=== PATIENT | female | born 1945 | race Caucasian/White ===

== ENCOUNTER 2017-07-23 04:34 | Inpatient (IN) | payer MEDICARE ==
[2017-07-23] VITALS (12 sets, daily range): BP systolic 138–173; BP diastolic 72–100
[~2017-07-23 04:34] MED LIST changes: -CEPH500C24 PO; -NIFE30TA92 PO
--- NOTE | 2017-07-23 05:01 | ER Report ---
History and Physical Time Seen By MD: 04:53 Hx. of Stated Complaint: pt reports pain last few weeks in R hip and groin, nausea (ROBERT PILLAI MD) HPI/ROS 72-year-old female with a history of multiple UTIs in the past. She called the paramedics early this morning complaining of right hip pain for 2 months which has worsened for the past 2 weeks. However upon arrival when asked why she presented to the hospital with pain after 2 months in the middle the night she started to say that she had abdominal pain that started at 5 PM yesterday. The paramedics state that she never said anything about abdominal pain. She denies dysuria, urgency or frequency. No fever chills. She denies any falls or other trauma. Chest pain and no shortness of breath. She states that her hip pain is better but she has right sided abdominal pain and right flank pain. Paramedics said when they arrived at the home she was able to walk briskly with a walker to get to the ambulance. She does complain of nausea. Remainder of the 14 system rev: Yes (ROBERT PILLAI MD) Allergies: Coded Allergies: No Known Drug Allergies (Verified , 02/01/11) Home Meds Reported Medications Metoprolol Tartrate (Metoprolol Tartrate) 100 Mg Tablet, 100 MG PO BID, #60 0 Refills 06/26/10 Oregano Oil (Oil Of Oregano) 1,500 Mg Capsule, 1500 MG PO, 0 Refills 06/26/10 Saline ([place] Nasal [place]) 45 Ml [place], 0 NA PRN, 0 Refills SPRAY 06/26/10 Discontinued Reported Medications Levofloxacin (Levaquin) 500 Mg Tab, 500 MG PO QDAY for 4 Days, 0 Refills 02/04/11 Acetaminophen/Hydrocodone (Lortab 5/325 Mg) 5 Mg/325 Mg Tab, 1-2 TAB PO Q4H, # 30 0 Refills as needed for pain 02/04/11 Ketorolac Tromethamine (Toradol) 10 Mg Tab, 10 MG PO QID, #12 0 Refills 02/04/11 Lisinopril (Lisinopril) 40 Mg Tablet, 40 MG PO DAILY, 0 Refills 02/01/11 Cetirizine Hcl (Zyrtec) 10 Mg Tab, 10 MG PO QDAY, 0 Refills 06/26/10 Discontinued Scripts Lorazepam (ATIVAN) 0.5 Mg Tablet, 0.5 MG PO Q4-6H Y for ANXIETY, #15 TAB 0 Refills Prov:LOIS VILLANUEVA MD 10/23/15 Amoxicillin/Pot Clav 875-125 Mg Tab (AUGMENTIN 875-125 TABLET) 1 Each Tablet, 1 TAB PO Q12H, #20 TAB 0 Refills Prov:LOIS VILLANUEVA MD 10/23/15 Reviewed Nurses Notes: Yes Old Medical Records Reviewed: Yes (ROBERT PILLAI MD) Hx Smoking: No Hx Substance Use Disorder: No Hx Alcohol Use: No (ROBERT PILLAI MD) Constitutional Vital Sign - Last 24 Hours 07/23/17 07/23/17 07/23/17 07/23/17 04:34 04:35 04:39 04:49 Temp 98.3 Pulse ??? 87 83 Resp 18 B/P (MAP) 211/142 211/142 (165) Pulse Ox 93 92 O2 Delivery Room Air 07/23/17 07/23/17 07/23/17 07/23/17 04:52 05:00 05:04 05:19 Pulse 83 86 B/P (MAP) 200/120 (146) 209/123 (151) Pulse Ox 92 92 07/23/17 07/23/17 07/23/17 07/23/17 05:30 05:49 05:57 06:01 Temp 100.5 Pulse 87 B/P (MAP) 223/142 (169) 219/112 (147) Pulse Ox 92 07/23/17 07/23/17 07/23/17 07/23/17 06:17 06:30 06:32 07:17 Pulse 90 89 90 Resp 26 B/P (MAP) 213/125 (154) Pulse Ox 90 87 91 07/23/17 07/23/17 07/23/17 07/23/17 07:22 07:30 07:32 07:37 Temp 99.0 Pulse 93 95 Resp 15 61 B/P (MAP) 206/105 (138) Pulse Ox 90 90 07/23/17 07:52 Pulse 94 Resp 10 Pulse Ox 90 (REIK GANN MD) Physical Exam General Appearance: The patient is alert, has no immediate need for airway protection and no current signs of toxicity. Eyes: Pupils equal and round no injection. Respiratory: Chest is non tender, lungs are clear to auscultation. Cardiac: regular rate and rhythm Gastrointestinal: Abdomen is soft and non tender, no masses, bowel sounds normal. Musculoskeletal: Neck: Neck is supple and non tender. Extremities have full range of motion and are non tender. Skin: No rashes or lesions. DIFFERENTIAL DIAGNOSIS: After history and physical exam differential diagnosis was considered for (ROBERT PILLAI MD) Medical Decision Making Data Points Result Diagram: 07/23/17 0501 07/23/17 0501 Laboratory Hematology Test 07/23/17 05:01 07/23/17 05:17 07/23/17 06:28 Red Blood Count 5.07 M/uL (4.17-5.56) Mean Corpuscular Volume 88.7 fL (80.0-96.0) Mean Corpuscular Hemoglobin 30.3 pg (26.0-33.0) Mean Corpuscular Hemoglobin Concent 34.1 g/dL (32.0-36.0) Red Cell Distribution Width 15.4 % (11.5-14.5) Mean Platelet Volume 8.7 fL (7.2-11.1) Neutrophils (%) (Auto) 93.3 % (39.4-72.5) Lymphocytes (%) (Auto) 5.0 % (17.6-49.6) Monocytes (%) (Auto) 1.2 % (4.1-12.4) Eosinophils (%) (Auto) 0.0 % (0.4-6.7) Basophils (%) (Auto) 0.5 % (0.3-1.4) Nucleated RBC Relative Count (auto) 0.2 /100WBC Neutrophils # (Auto) 9.6 K/uL (2.0-7.4) Lymphocytes # (Auto) 0.5 K/uL (1.3-3.6) Monocytes # (Auto) 0.1 K/uL (0.3-1.0) Eosinophils # (Auto) 0.0 K/uL (0.0-0.5) Basophils # (Auto) 0.0 K/uL (0.0-0.1) Nucleated RBC Absolute Count (auto) 0.02 K/uL Sodium Level 135 mmol/L (137-145) Potassium Level 4.3 mmol/L (3.5-5.0) Chloride Level 102 mmol/L (98-107) Carbon Dioxide Level 21 mmol/L (22-31) Blood Urea Nitrogen 18 mg/dl (7-18) Creatinine 1.60 mg/dl (0.52-1.04) Glomerular Filtration Rate Calc 31.8 Random Glucose 163 mg/dl (75-110) Calcium Level 9.7 mg/dl (8.4-10.2) Total Bilirubin 0.9 mg/dl (0.2-1.3) Aspartate Amino Transf (AST/SGOT) 29 U/L (0-35) Alanine Aminotransferase (ALT/SGPT) 38 U/L (0-56) Alkaline Phosphatase 121 U/L (0-126) Total Protein 7.6 g/dl (6.3-8.2) Albumin 3.7 g/dl (3.5-5.0) Lipase 71 U/L (23-300) Urine Color Yellow Urine Clarity Slightly-cloudy Urine pH 7.0 pH (4.8-9.5) Urine Specific [place] 1.009 Urine Protein 30 mg/dL (NEGATIVE) Urine Glucose (UA) Negative mg/dL (NEGATIVE) Urine Ketones Negative mg/dL (NEGATIVE) Urine Blood Small (NEGATIVE) Urine Nitrite Negative (NEGATIVE) Urine Bilirubin Negative (NEGATIVE) Urine Urobilinogen Negative mg/dL (0.2-1.9) Urine Leukocyte Esterase Large (NEGATIVE) Urine RBC 16 /HPF (0-2/HPF) Urine WBC 53 /HPF (0-5/HPF) Urine WBC Clumps Few /HPF Urine Squamous Epithelial Cells Moderate /LPF (NONE-FEW) Urine Transitional Epithelial Cells Few /LPF (NONE-FEW) Urine Bacteria Few /HPF (NONE-FEW) Urine Mucus None /HPF (NONE-FEW) Lactate 2.3 mmol/L (0.7-2.1) Chemistry Test 07/23/17 05:01 07/23/17 05:17 07/23/17 06:28 White Blood Count 10.2 k/uL (4.5-11.0) Red Blood Count 5.07 M/uL (4.17-5.56) Hemoglobin 15.3 g/dL (12.0-16.0) Hematocrit 45.0 % (34.0-47.0) Mean Corpuscular Volume 88.7 fL (80.0-96.0) Mean Corpuscular Hemoglobin 30.3 pg (26.0-33.0) Mean Corpuscular Hemoglobin Concent 34.1 g/dL (32.0-36.0) Red Cell Distribution Width 15.4 % (11.5-14.5) Platelet Count 201 K/uL (150-450) Mean Platelet Volume 8.7 fL (7.2-11.1) Neutrophils (%) (Auto) 93.3 % (39.4-72.5) Lymphocytes (%) (Auto) 5.0 % (17.6-49.6) Monocytes (%) (Auto) 1.2 % (4.1-12.4) Eosinophils (%) (Auto) 0.0 % (0.4-6.7) Basophils (%) (Auto) 0.5 % (0.3-1.4) Nucleated RBC Relative Count (auto) 0.2 /100WBC Neutrophils # (Auto) 9.6 K/uL (2.0-7.4) Lymphocytes # (Auto) 0.5 K/uL (1.3-3.6) Monocytes # (Auto) 0.1 K/uL (0.3-1.0) Eosinophils # (Auto) 0.0 K/uL (0.0-0.5) Basophils # (Auto) 0.0 K/uL (0.0-0.1) Nucleated RBC Absolute Count (auto) 0.02 K/uL Glomerular Filtration Rate Calc 31.8 Calcium Level 9.7 mg/dl (8.4-10.2) Total Bilirubin 0.9 mg/dl (0.2-1.3) Aspartate Amino Transf (AST/SGOT) 29 U/L (0-35) Alanine Aminotransferase (ALT/SGPT) 38 U/L (0-56) Alkaline Phosphatase 121 U/L (0-126) Total Protein 7.6 g/dl (6.3-8.2) Albumin 3.7 g/dl (3.5-5.0) Lipase 71 U/L (23-300) Urine Color Yellow Urine Clarity Slightly-cloudy Urine pH 7.0 pH (4.8-9.5) Urine Specific [place] 1.009 Urine Protein 30 mg/dL (NEGATIVE) Urine Glucose (UA) Negative mg/dL (NEGATIVE) Urine Ketones Negative mg/dL (NEGATIVE) Urine Blood Small (NEGATIVE) Urine Nitrite Negative (NEGATIVE) Urine Bilirubin Negative (NEGATIVE) Urine Urobilinogen Negative mg/dL (0.2-1.9) Urine Leukocyte Esterase Large (NEGATIVE) Urine RBC 16 /HPF (0-2/HPF) Urine WBC 53 /HPF (0-5/HPF) Urine WBC Clumps Few /HPF Urine Squamous Epithelial Cells Moderate /LPF (NONE-FEW) Urine Transitional Epithelial Cells Few /LPF (NONE-FEW) Urine Bacteria Few /HPF (NONE-FEW) Urine Mucus None /HPF (NONE-FEW) Lactate 2.3 mmol/L (0.7-2.1) Urinalysis Test 07/23/17 05:17 Urine Color Yellow Urine Clarity Slightly-cloudy Urine pH 7.0 pH (4.8-9.5) Urine Specific [place] 1.009 Urine Protein 30 mg/dL (NEGATIVE) Urine Glucose (UA) Negative mg/dL (NEGATIVE) Urine Ketones Negative mg/dL (NEGATIVE) Urine Blood Small (NEGATIVE) Urine Nitrite Negative (NEGATIVE) Urine Bilirubin Negative (NEGATIVE) Urine Urobilinogen Negative mg/dL (0.2-1.9) Urine Leukocyte Esterase Large (NEGATIVE) Urine RBC 16 /HPF (0-2/HPF) Urine WBC 53 /HPF (0-5/HPF) Urine WBC Clumps Few /HPF Urine Squamous Epithelial Cells Moderate /LPF (NONE-FEW) Urine Transitional Epithelial Cells Few /LPF (NONE-FEW) Urine Bacteria Few /HPF (NONE-FEW) Urine Mucus None /HPF (NONE-FEW) (ERIK GANN MD) EKG/Imaging EKG Interpretation EKG shows normal sinus rhythm with a ventricular rate of 94 bpm Imaging FACILITY: [facility] PATIENT NAME: Sarah Tomlinson : 1945 MR: [id number] V: [id number] EXAM DATE: ORDERING PHYSICIAN: ROBERT PILLAI TECHNOLOGIST: Location: [facility] [place] Patient: Sarah Tomlinson : 1945 Visit/Account:[id number] Date of Sevice: 07/23/2017 CT abdomen and pelvis without contrast Indication: Flank pain, fever, nausea Comparison: CT examination of the abdomen from January 2011 Technique: Axial CT images are obtained through the abdomen and pelvis. Reformatted coronal and sagittal images were reviewed. IV contrast was not administered. One of the following dose optimization techniques was utilized in the performance of this exam: Automated exposure control; adjustment of the mA and/or kV according to the patient's size; or use of an iterative reconstruction technique. Specific details can be referenced in the facility's radiology CT exam operational policy. Findings: Lower lung [place]: Linear type atelectasis/scarring is noted in the lingula and dependently within the lung bases. Evaluation of the solid organs of the abdomen is limited without IV contrast. Liver: No focal parenchymal abnormality of the liver. Biliary: Gallbladder is been surgically removed. Pancreas: No acute finding Spleen: Normal appearance. Adrenal glands: Nodularity is noted to the body of the right adrenal gland inferiorly without discrete nodule. Kidneys / retroperitoneum: There is large, nonobstructing calcification involving upper pole calyceal system on the left. The stone measures 3.1 x 1.7 cm in dimension. On the right, there is a 0.8 x 0.6 x 2.7 cm linear stone which is obstructing the proximal right ureter there is subsequent moderate right-sided hydronephrosis with right-sided perinephric stranding. No additional stones in the ureters or urinary bladder. Bowel / peritoneum / mesenteries: Large and small intestine are without acute pathology. Lymph node assessment: No pathologic adenopathy identified. Vessels: Mild atherosclerotic calcifications seen throughout a nonaneurysmal abdominal aorta and branches. Musculoskeletal / Body wall: Fat-containing periumbilical hernia. Moderate to severe spondylotic changes lower lumbar spine. No acute osseous finding. IMPRESSION: 1. There is a 2.7 x 0.8 x 0.6 cm stone in the right UPJ with subsequent moderate right-sided hydronephrosis and perinephric stranding. Large nonobstructive left-sided calyceal stone. 2. Other incidental findings as above. Report Dictated By: Pablo Cherry MD at 07/23/2017 7:36 AM Report E-Signed By: Pablo Cherry MD at 07/23/2017 7:42 AM WSN:[id number] FACILITY: [facility] PATIENT NAME: Sarah Tomlinson : 1945 MR: [id number] V: [id number] EXAM DATE: ORDERING PHYSICIAN: ROBERT PILLAI TECHNOLOGIST: Location: [facility] [place] Patient: Sarah Tomlinson : 1945 Visit/Account:[id number] Date of Sevice: 07/23/2017 Single view of the chest Indication: Fever. Comparison: X-ray examination of the chest from October 23, 2015. Findings: Heart is enlarged. Linear scarring/atelectasis is noted in the left midlung, stable. Stable mild central bronchitic changes. No evidence of new infiltrate or consolidation. No effusion or pneumothorax. No acute bony finding IMPRESSION: 1. Cardiomegaly without acute finding. Report Dictated By: Pablo Cherry MD at 07/23/2017 7:35 AM Report E-Signed By: Pablo Cherry MD at 07/23/2017 7:36 AM WSN:[id number] FACILITY: [facility] PATIENT NAME: Sarah Tomlinson : 1945 MR: [id number] V: [id number] EXAM DATE: ORDERING PHYSICIAN: ROBERT PILLAI TECHNOLOGIST: Location: [facility] [place] Patient: Sarah Tomlinson : 1945 Visit/Account:[id number] Date of Sevice: 07/23/2017 Right knee Indication: Pain Comparison: None available Findings: 3 views right knee were obtained. Degenerative narrowing seen in the medial compartment with mild osteophytic change. There is severe narrowing in the lateral compartment with moderate marginal osteophytic change. Osseous spurring is seen along the intercondylar notch and involving the tibial spines. Lateral view demonstrates narrowing and spurring the patellofemoral joint. Enthesopathy is seen at the insertion the quadriceps tendon on the superior patella. No joint effusion. No acute fracture. IMPRESSION: 1. 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 No acute finding. Report Dictated By: Pablo Cherry MD at 07/23/2017 7:34 AM Report E-Signed By: Pablo Cherry MD at 07/23/2017 7:35 AM WSN:[id number] FACILITY: [facility] PATIENT NAME: Sarah Tomlinson : 1945 MR: [id number] V: [id number] EXAM DATE: ORDERING PHYSICIAN: ROBERT PILLAI TECHNOLOGIST: Location: [facility] [place] Patient: Sarah Tomlinson : 1945 Visit/Account:[id number] Date of Sevice: 07/23/2017 HIP RIGHT HISTORY: Pain for 2 months. No trauma. COMPARISON: CTs of the abdomen and pelvis 02/01/2011 and 05/27/2010. Prior KUB . TECHNIQUE: AP view of the pelvis and frog-leg lateral view of the right hip. FINDINGS: There is no fracture or dislocation. Sacroiliac joints are patent without widening. There is no pubic diastases. There is a left pelvic phlebolith. IMPRESSION: 1. No acute osseous abnormality of the right hip. Report Dictated By: Arti Evans at 07/23/2017 6:11 AM Report E-Signed By: Arti Evans at 07/23/2017 6:13 AM WSN:[id number] (ERIK GANN MD) ED Course/Re-evaluation ED Course 07/23/2017 7:33:54 am I accepted care of patient at 7 AM this morning. Briefly this is a 72-year-old female who is brought in by ambulance around 4 AM for abdominal pain. Evaluation emergency department showed evidence for possible urinary tract infection culture sent. Patient did spike a fever in the emergency department. Slightly elevated lactate and creatinine. Patient currently receiving IV fluids patient did get urine and blood cultures drawn. CT scan of the abdomen and pelvis is pending at this time. Decision to Disposition Date: Jul 23, 2017 Decision to Disposition Time: 08:06 (ERIK GANN MD) Depart Departure Latest Vital Signs Vital Signs Date Time Temp Pulse Resp B/P (MAP) Pulse Ox O2 Delivery O2 Flow Rate FiO2 07/23/17 07:52 94 10 90 07/23/17 07:32 99.0 07/23/17 07:30 206/105 (138) 07/23/17 04:35 Room Air (ERIK GANN MD) Impression: Primary Impression: Hydronephrosis with ureteropelvic junction (UPJ) obstruction Additional Impression: Urinary tract infection Condition: Improved Disposition: ADMIT FROM ER TO OR (to Dr Everett) Referrals: EBER GONCALVES DO (PCP) Problem Qualifiers Additional Impression: Urinary tract infection Urinary tract infection type: acute cystitis Hematuria presence: with hematuria Qualified Codes: N30.01 - Acute cystitis with hematuria ROBERT PILLAI MD Jul 23, 2017 05:01 ERIK GANN MD Jul 23, 2017 07:35
[2017-07-23 05:12] LABS: PLATELET COUNT, AUTOMATED 201 K/uL (150-450)
[2017-07-23] MEDS ORDERED: ONDANSETRON 4 MG ODT TABDP SL ONE (05:35)
[2017-07-23] MEDS ORDERED: CEPHALEXIN MONO 500 MG CAP PO ONE (05:50)
[2017-07-23] MEDS ORDERED: ACETAMINOPHEN 500 MG TAB PO ONE (06:10)
[2017-07-23] MEDS ORDERED: ONDANSETRON 4 MG/2 ML VIAL IVP ONE (06:10)
[2017-07-23] MEDS ORDERED: NS(*) 0.9% 1000 ML BAG 1,000 ML IV ONE (06:10)
--- NOTE | 2017-07-23 06:18 | RADIOLOGY IMAGING REPORT ---
FACILITY: [facility] [place] PATIENT NAME: Sarah Tomlinson : 1945 MR: [id number] V: [id number] EXAM DATE: ORDERING PHYSICIAN: ROBERT PILLAI TECHNOLOGIST: [place] [facility] [place]: Sarah Tomlinson : 1945 Visit/Account:[id number] Date of Sevice: 07/23/2017 HIP RIGHT HISTORY: Pain for 2 months. No trauma. COMPARISON: CTs of the abdomen and pelvis 02/01/2011 and 05/27/2010. Prior KUB 06/25/2010. TECHNIQUE: AP view of the pelvis and frog-leg lateral view of the right hip. FINDINGS: There is no fracture or dislocation. Sacroiliac joints are patent without widening. There i s no pubic diastases. There is a left pelvic phlebolith. IMPRESSION: 1. No acute osseous abnormality of the right hip. Report Dictated By: Arti Evans at 07/23/2017 6:11 AM Report E-Signed By: Arti Evans at 07/23/2017 6:13 AM WSN:[id number]
[2017-07-23] MEDS ORDERED: cefTRIAXone(*) 1 GM VIAL 1 GM in NS(*) 0.9% 100 ML ADDVANT BAG 100 ML IVPB ONE (07:25)
--- NOTE | 2017-07-23 07:40 | RADIOLOGY IMAGING REPORT ---
FACILITY: [facility] [place] PATIENT NAME: Sarah Tomlinson : 1945 MR: [id number] V: [id number] EXAM DATE: ORDERING PHYSICIAN: ROBERT PILLAI TECHNOLOGIST: Location: [facility] [place] Patient: Sarah Tomlinson : 1945 Visit/Account:[id number] Date of Sevice: 07/23/2017 Single view of the chest Indication: Fever. Comparison: X-ray examination of the chest from October 23, 2015. Findings: Heart is enlarged. Linear scarring/atelectasis is noted in the left midlung, stable. Stable mild cent ral bronchitic changes. No evidence of new infiltrate or consolidation. No effusion or pneumothorax. No acute bony finding IMPRESSION: 1. Cardiomegaly without acute finding. Report Dictated By: Pablo Cherry MD at 07/23/2017 7:35 AM Report E-Signed By: Pablo Cherry MD at 07/23/2017 7:36 AM WSN:[id number]
--- NOTE | 2017-07-23 07:40 | RADIOLOGY IMAGING REPORT ---
FACILITY: PATIENT NAME: Sarah Tomlinson : 1945 MR: [id number] V: [id number] EXAM DATE: ORDERING PHYSICIAN: ROBERT PILLAI TECHNOLOGIST: Location: [facility] Patient: Sarah Tomlinson : 1945 Visit/Account:[id number] Date of Sevice: 07/23/2017 Right knee Indication: Pain Comparison: None available Findings: 3 views right knee were obtained. Degenerative narrowing seen in the medial compartment with mild osteophytic change. There is severe n arrowing in the lateral compartment with moderate marginal osteophytic change. Osseous spurring is se en along the intercondylar notch and involving the tibial spines. Lateral view demonstrates narrowing and spurring the patellofemoral joint. Enthesopathy is seen at the insertion the quadriceps tendon o n the superior patella. No joint effusion. No acute fracture. IMPRESSION: 1. 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 No acute finding. Report Dictated By: Pablo Cherry MD at 07/23/2017 7:34 AM Report E-Signed By: Pablo Cherry MD at 07/23/2017 7:35 AM WSN:[id number]
--- NOTE | 2017-07-23 07:45 | RADIOLOGY IMAGING REPORT ---
FACILITY: [facility] - [place] PATIENT NAME: Sarah Tomlinson : 1945 MR: [id number] V: [id number] EXAM DATE: ORDERING PHYSICIAN: ROBERT PILLAI TECHNOLOGIST: Location: [facility] Patient: Sarah Tomlinson : 1945 Visit/Account:[id number] Date of Sevice: 07/23/2017 CT abdomen and pelvis without contrast Indication: Flank pain, fever, nausea Comparison: CT examination of the abdomen from January 2011 Technique: Axial CT images are obtained through the abdomen and pelvis. Reformatted coronal and sagit nati images were reviewed. IV contrast was not administered. One of the following dose optimization te chniques was utilized in the performance of this exam: Automated exposure control; adjustment of the mA and/or kV according to the patient's size; or use of an iterative reconstruction technique. Spec [facility] details can be referenced in the facility's radiology CT exam operational policy. Findings: Lower lung [place]: Linear type atelectasis/scarring is noted in the lingula and dependently within th e lung bases. Evaluation of the solid organs of the abdomen is limited without IV contrast. Liver: No focal parenchymal abnormality of the liver. Biliary: Gallbladder is been surgically removed. Pancreas: No acute finding Spleen: Normal appearance. Adrenal glands: Nodularity is noted to the body of the right adrenal gland inferiorly without discret e nodule. Kidneys / retroperitoneum: There is large, nonobstructing calcification involving upper pole calyceal system on the left. The stone measures 3.1 x 1.7 cm in dimension. On the right, there is a 0.8 x 0.6 x 2.7 cm linear stone which is obstructing the proximal right uret er there is subsequent moderate right-sided hydronephrosis with right-sided perinephric stranding. No additional stones in the ureters or urinary bladder. Bowel / peritoneum / mesenteries: Large and small intestine are without acute pathology. Lymph node assessment: No pathologic adenopathy identified. Vessels: Mild atherosclerotic calcifications seen throughout a nonaneurysmal abdominal aorta and bran ches. Musculoskeletal / Body wall: Fat-containing periumbilical hernia. Moderate to severe spondylotic griffiths ges lower lumbar spine. No acute osseous finding. IMPRESSION: 1. There is a 2.7 x 0.8 x 0.6 cm stone in the right UPJ with subsequent moderate right-sided hydronep hrosis and perinephric stranding. Large nonobstructive left-sided calyceal stone. 2. Other incidental findings as above. Report Dictated By: Pablo Cherry MD at 07/23/2017 7:36 AM Report E-Signed By: Pablo Cherry MD at 07/23/2017 7:42 AM WSN:[id number]
[2017-07-23] MEDS ORDERED: LABETALOL HCL 100 MG/20ML VIAL IVP ONE (08:00)
[2017-07-23] MEDS ORDERED: NORMOSOL R SOLN(*) 1000 ML BAG 1,000 ML IV ONE (08:00)
[2017-07-23] MEDS ORDERED: fentaNYL CITR 100 MCG/2 ML AMP IVP ONE (08:00)
[2017-07-23] MEDS ORDERED: FAMOTIDINE(*) 20MG/50ML PREMIX 50 ML IVPB ONE (08:00)
--- NOTE | 2017-07-23 08:09 | EKG ---
FACILITY: [facility] [place] PATIENT NAME: STEPHEN ARAGON : [id number] MR: [id number] V: [id number] EXAM DATE: ORDERING PHYSICIAN: ERIK GANN TECHNOLOGIST: WILLIAN Davis Reason : Blood Pressure : / mmHG Vent. 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
[2017-07-23] MEDS ORDERED: fentaNYL CITR 100 MCG/2 ML AMP ONE ×2 (10:04→11:53)
[2017-07-23] MEDS ORDERED: LIDOCAINE 2% IV 100 MG/5ML SYR ONE (10:05)
[2017-07-23] MEDS ORDERED: PROPOFOL EMUL(*) 10MG/ML 20 ML 20 ML ONE (10:05)
[2017-07-23] MEDS ORDERED: fentaNYL CITR 100 MCG/2 ML AMP IVP PRN (10:10)
--- NOTE | 2017-07-23 10:59 | HISTORY AND PHYSICAL ---
DATE OF ADMISSION: July 23, 2017 CHIEF COMPLAINT Right proximal ureteral calculi with colic and probable infection. HISTORY OF PRESENT ILLNESS The patient is a 72-year-old white female with a history of kidney stones and urinary tract infections who presented to the emergency room in the morning hours of July 23 with right sided abdominal and flank pain. She was evaluated by the emergency room staff, who obtained a CT scan, which revealed a linear calcification approximately 2 mm long and 8 mm wide into the right UPJ with moderate hydronephrosis. She was also noted to have a 3 cm left upper pole stone. The patient was noted to have a low grade fever in the emergency room. Her white count showed normal white count but having left shift and 93 neutrophils. Her urine showed 53 WBCs per high powered field with a few bacteria. Her lactate was elevated at 2.3 and creatinine was elevated to 1.6, up from baseline of 1.1. Blood and urine cultures have been obtained. She was given broad spectrum antibiotics with Keflex and Rocephin in the emergency room before I was consulted. She is now being admitted to be taken to the operating room for right ureteral stent placement for decompression and drainage of her right system with possible ureteroscopy as indicated. PAST MEDICAL HISTORY * Hypertension. * Obesity. * Anxiety and depression. * Asthma. * Urinary incontinence. * Urinary tract infections, last one documented in October 2015 with E. coli. * Pancreatitis secondary to gallstones. * Kidney stone disease since . PAST SURGICAL HISTORY * Right JJ stent placement for obstructing kidney stone with Proteus infection in May 2010. * Right ureteroscopy and extracorporeal shockwave lithotripsy in June 2010. * Laparoscopic cholecystectomy in January 2011. ALLERGIES No known drug allergies. CURRENT MEDICATIONS * Metoprolol. * Oregano Oil. * Sodium chloride nasal spray. SOCIAL HISTORY Patient is a and lives in [place], [place]. REVIEW OF SYSTEMS Patient denies current chest pain, shortness of breath, bleeding disorder, gross hematuria, headaches, liver disease or productive cough. She does report positive nausea over the past several days. PHYSICAL EXAMINATION Patient is a mildly obese white female in no acute distress. HEENT: Normocephalic/atraumatic. Chest: Clear to auscultation bilaterally. Cardiovascular: Regular rate and rhythm.. Abdomen: Soft, nontender, slightly obese. : Deferred to OR. Extremities: Without clubbing, cyanosis or edema. Neurological: Nonfocal. ASSESSMENT * 72-year-old white female with a history of Proteus infection with kidney stones, now with bilateral stones. She has a 2.7 x 0.8 x 0.6 curvilinear stone at the right uteropelvic junction (UPJ) with subsequent moderate hydronephrosis. She is also noted to have a 3 x 1.7 cm left upper pole calyceal stone. Clinically, she appears to have an early urinary tract infection with her elevated lactate, urinalysis and left shift on her CBC. These findings were discussed with the patient. PLAN Perform anesthetic cystoscopy, right ureteral stent placement and possible ureteroscopy. If we are unable to place a stent from below, she will need urgent right percutaneous nephrostomy tube placement for decompression of her upper tract. After her urinary tract infection has been cleared, we will proceed with definitive stone treatment. KENNETH
[2017-07-23] MEDS ORDERED: IOPAMIDOL-200 50 ML VIAL IS ONE (11:30)
[2017-07-23] MEDS ORDERED: BELLADONNA ALK/OPIUM 60MG SUPP PR ONE (11:30)
[2017-07-23] MEDS ORDERED: DEXAMETHASONE SOD 4 MG/ML VIAL ONE (11:44)
[2017-07-23] MEDS ORDERED: ONDANSETRON 4 MG/2 ML VIAL ONE (11:44)
[2017-07-23] MEDS ORDERED: IMIPENEM/CILASTA(*) 500MG VIAL 500 MG in NS(*) 0.9% 100 ML BAG 100 ML IVPB ONE (12:05)
[2017-07-23] MEDS ORDERED: NS(*) 0.9% 1000 ML BAG 1,000 ML IV PRN (13:00)
[2017-07-23] MEDS ORDERED: PHENAZOPYRIDINE 200 MG TAB PO PRN (13:05)
[2017-07-23] MEDS ORDERED: MAG HYD/AL HYD/SIMETH 30ML UDC PO PRN (13:05)
[2017-07-23] MEDS ORDERED: OXYBUTYNIN CHL XL 5 MG TABCR PO PRN (13:10)
[2017-07-23 13:11] LABS: PLATELET COUNT, AUTOMATED 178 K/uL (150-450)
--- NOTE | 2017-07-23 13:44 | RADIOLOGY IMAGING REPORT ---
FACILITY: [facility] PATIENT NAME: Sarah Tomlinson : 1945 MR: [id number] V: [id number] EXAM DATE: ORDERING PHYSICIAN: LISA GIBSON TECHNOLOGIST: [facility] Patient: Sarah Tomlinson : 1945 Visit/Account:[id number] Date of Sevice: 07/23/2017 Exam type: RETROGRADE PYELOGRAM History: POSSIBLE KIDNEY STONES Comparison: CT abdomen and pelvis performed today. Findings: 16 intraoperative C-arm spot views of the abdomen and pelvis were submitted for interpretation. The total fluoroscopy time was 0.53 minutes. The fluoroscopy dose was 1.02 mGray. Contrast is identifie d in the moderately dilated right renal pelvis. Final images demonstrate a right ureteral stent in p lace. Partial staghorn calculus noted on today's CT scan is seen projecting over the left renal shad ow. IMPRESSION: 1. As above Report Dictated By: Avis Boothe MD at 07/23/2017 1:38 PM Report E-Signed By: Avis Boothe MD at 07/23/2017 1:40 PM WSN:[id number]
--- NOTE | 2017-07-23 14:58 | OPERATIVE REPORT 1 ---
EVENT DATE: July 23, 2017 SURGEON: Clarence Everett MD ANESTHESIOLOGIST: Lopez Reza MD ANESTHESIA: General anesthetic. PREOPERATIVE DIAGNOSIS Right proximal ureteral calculus with urinary tract infection. POSTOPERATIVE DIAGNOSIS Right proximal ureteral calculus with urinary tract infection. PROCEDURES PERFORMED 1. Cystoscopy. 2. Irrigation of bladder of amorphous debris. 3. Right retrograde pyelogram. 4. Right internal double-J ureteral stent placement. ESTIMATED BLOOD LOSS Minimal. INTRAVENOUS FLUIDS Crystalloid. DRAINS 1. A 6-Moroccan x 26 cm PercuFlex Plus stent on right. 2. A 16-Moroccan Stout catheter. SPECIMENS Right upper tract urine culture via ureteral stent. COMPLICATIONS None. CONDITION Patient taken to recovery room awake and in stable condition. STATEMENT OF MEDICAL NECESSITY Patient is a 72-year-old white female with a history of kidney stones and urinary tract infection who now presented to the emergency room with right flank pain and was found to have an obstructing proximal ureteral calculus measuring 2.7 x 0.8 x 0.6 cm with proximal hydronephrosis. She was also febrile with a left shift and an elevated lactate. Urine and blood cultures were obtained. She is now being brought to the operating room for planned ureteral stent placement for renal decompression. DESCRIPTION OF OPERATION PERFORMED Patient was brought to the operating room. After general anesthetic was obtained, she was placed in the dorsal lithotomy position and prepped and draped in the usual sterile manner. Anesthetic cystoscopy was performed with the 21-Moroccan rigid Story scope and the 30-degree lens. She had a normal- appearing urethra. Upon entering her bladder, she had diffusely erythematous patches consistent with acute cystitis as well as a large amount of a light yellowish, amorphous debris. Her bladder was irrigated with the [facility] evacuator to remove all of the debris. At this point, a right retrograde pyelogram was performed by using a 6-Moroccan open-ended access catheter and advancing it up the ureter in a retrograde manner. It was advanced to approximately the mid ureter, and a retrograde pyelogram was performed. Good filling of the proximal ureter and collecting system was obtained; however, the films were of poor quality secondary to poor penetration secondary to her body habitus. There was no evidence of extravasation. She had dilated renal calyces. The stone could not be directly identified on the retrograde. I advanced the stent up to the renal pelvis. This was followed by a large amount of yellowish-white debris emitting from the ureteral orifice around the stent as well as from the 6-Moroccan lumen. A sample of this material was collected and sent for culture. Following this, a 0.035 wire was advanced in the lumen of the access catheter where it was curled in the upper pole calyx. The access catheter was removed, and this wire was used to place a 6-Moroccan x 26 cm Contour stent. The wire was removed. She was noted to have good curling in the renal pelvis by fluoroscopy and good curling in the bladder by direct vision. At this point, the scope was removed. A 16-Moroccan Stout catheter was placed with the balloon inflated to gravity drainage. A B and O suppository was given per rectum at the conclusion of the case. She was awakened in the operating room and taken to the recovery area in stable condition. PLAN The plan will be to admit the patient for 23 hours of observation and start her on broad-spectrum antibiotics and intravenous fluid replacement. Will have Dr. Jeff aMrte of the hospitalist service evaluate her for her other underlying medical conditions. After she is appropriately treated for this infection, we plan definitive stone treatment in two to four weeks. KENNETH
[2017-07-23] MEDS ORDERED: METOPROLOL TART 5 MG/5 ML VIAL IVP PRN (15:20)
--- NOTE | 2017-07-23 15:43 | Hospitalist Consultation ---
History of Present Illness Requesting Physician Karlos Reason for Consult hypertension, pyelonephritis History of Present Illness 72yo female with hypertension who was admitted for a obstructing ureteral stone and pyelonephritis. She presented with right sided abdominal pain that radiated to the right flank/back. The pain started at 5pm yesterday. It was constant, 10/10 and dull. She had nausea yesterday and one episode of vomiting in the ER. She denies any coffee ground substance in the vomitus or blood. No diarrhea or chills, but she spiked a fever in the ER. She was found to have an obstructing ureteral stone on the right, so went to the OR and had a stent placed. Dr. Gibson reported that purulent material came out of the stent. Currently, she denies any abdominal pain, cp or sob. History Problems: (1) HTN (hypertension) Status: Chronic (2) History of cholecystectomy (3) History of kidney stones Home Meds Reported Medications Metoprolol Tartrate (Metoprolol Tartrate) 100 Mg Tablet, 100 MG PO BID, #60 0 Refills 06/26/10 Oregano Oil (Oil Of Oregano) 1,500 Mg Capsule, 1500 MG PO, 0 Refills 06/26/10 Saline (Kingfisher Nasal Safford) 45 Ml S[place], 0 NA PRN, 0 Refills SPRAY 06/26/10 Discontinued Reported Medications Levofloxacin (Levaquin) 500 Mg Tab, 500 MG PO QDAY for 4 Days, 0 Refills 02/04/11 Acetaminophen/Hydrocodone (Lortab 5/325 Mg) 5 Mg/325 Mg Tab, 1-2 TAB PO Q4H, # 30 0 Refills as needed for pain 02/04/11 Ketorolac Tromethamine (Toradol) 10 Mg Tab, 10 MG PO QID, #12 0 Refills 02/04/11 Lisinopril (Lisinopril) 40 Mg Tablet, 40 MG PO DAILY, 0 Refills 02/01/11 Cetirizine Hcl (Zyrtec) 10 Mg Tab, 10 MG PO QDAY, 0 Refills 06/26/10 Discontinued Scripts Lorazepam (ATIVAN) 0.5 Mg Tablet, 0.5 MG PO Q4-6H Y for ANXIETY, #15 TAB 0 Refills Prov:LOIS VILLANUEVA MD 10/23/15 Amoxicillin/Pot Clav 875-125 Mg Tab (AUGMENTIN 875-125 TABLET) 1 Each Tablet, 1 TAB PO Q12H, #20 TAB 0 Refills Prov:LOIS VILLANUEVA MD 10/23/15 Allergies: Coded Allergies: No Known Drug Allergies (Verified , 02/01/11) Hx Smoking: No Caffeine Intake: Coffee Caffeine/Cups Per Day: 2 Hx Alcohol Use: No Hx Substance Use Disorder: No Review of Systems All Systems Reviewed/Normal: Yes, Except as Noted Exam Vital Signs Vital Signs Date Time Temp Pulse Resp B/P (MAP) Pulse Ox O2 Delivery O2 Flow Rate FiO2 07/23/17 13:44 90 Nasal Cannula 1.5 07/23/17 13:35 98.2 90 16 173/100 (124) General Appearance: Alert, Awake, No Acute Distress Neuro: Other (She is still a bit sleepy after surgery, so sometimes is slow with answers to questions. She knows where she is and why she is here. ) Eyes: PERRLA ENT: Moist Mucous Membranes Cardiovascular: Regular Rate and Rhythm (2/6 sys murmur across precordium) Respiratory: Clear to Auscultation GI: Abd Soft and Non-Tender : No CVA Tenderness Extremities: Edema (Right ankle with 1+ pitting compared to none on the left ( reportedly fairly chronic)) Medical Decision Making Data Points Result Diagram: 07/23/17 1254 07/23/17 1254 Item Value Date Time Urine Leukocyte Esterase Large H 07/23/17 0517 Urine RBC 16 /HPF 07/23/17 0517 Urine WBC 53 /HPF 07/23/17 0517 Urine Squamous Epithelial Cells Moderate /LPF H 07/23/17 0517 Urine WBC Clumps Few /HPF 07/23/17 0517 Creatinine 1.60 mg/dl H 07/23/17 0501 Creatinine 1.80 mg/dl H 07/23/17 1254 Lactate 2.3 mmol/L H 07/23/17 0628 Lactate 1.8 mmol/L 07/23/17 1044 Blood Urea Nitrogen 18 mg/dl 07/23/17 0501 Blood Urea Nitrogen 19 mg/dl H 07/23/17 1254 Carbon Dioxide Level 19 mmol/L L 07/23/17 1254 Carbon Dioxide Level 21 mmol/L L 07/23/17 0501 Neutrophils (%) (Auto) 93.3 % H 07/23/17 0501 Neutrophils (%) (Auto) 91.7 % H 07/23/17 1254 White Blood Count 10.2 k/uL 07/23/17 0501 White Blood Count 21.8 k/uL H 07/23/17 1254 Hemoglobin 15.3 g/dL 07/23/17 0501 Hemoglobin 13.3 g/dL 07/23/17 1254 Red Cell Distribution Width 15.4 % H 07/23/17 0501 Platelet Count 178 K/uL 07/23/17 1254 Platelet Count 201 K/uL 07/23/17 0501 EKG / Imaging EKG Interpretation Vent. Rate : 094 BPM Atrial Rate : 094 BPM P-R Int : 154 ms QRS Dur : 082 ms QT Int : 374 ms P-R-T Axes : 048 029 005 degrees QTc Int : 467 ms Normal sinus rhythm Possible Left atrial enlargement R wave progression consistent with old ant/sep OR When compared with ECG of 23-OCT-2015 09:19, premature ventricular complexes are no longer present Confirmed by ISSAC VEGA ([id number]) on 07/23/2017 11:33:25 AM Imaging CXR - 1. Cardiomegaly without acute finding. Abd/Pelvis CT - 1. There is a 2.7 x 0.8 x 0.6 cm stone in the right UPJ with subsequent moderate right-sided hydronephrosis and perinephric stranding. Large nonobstructive left-sided calyceal stone. 2. Other incidental findings as above. Knee Xray - 1. 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 No acute finding. Hip Xray - 1. No acute osseous abnormality of the right hip. Assessment and Plan Problems: (1) Hydronephrosis with ureteropelvic junction (UPJ) obstruction Status: Acute Assessment & Plan: She presented with right abdominal pain and flank pain for about 12 hours prior to admission. She had a stent placed today. Lactate now normal. BP still high. P now wnl. She was given ceftriaxone in the ER and Primaxin in the OR. Previous urine cultures are sensitive to ceftriaxone, so will continue, but at 2g q24 hours. Urine and blood cultures are pending. (2) HTN (hypertension) Status: Chronic Assessment & Plan: Continue oral metoprolol and will use IV metoprolol for prn coverage. She might need an additional medication for better control. (3) CKD (chronic kidney disease) stage 3, GFR 30-59 ml/min Status: Chronic Assessment & Plan: Cr baseline appears to be around 1.1. Currently, 1.8. Currently getting IVF and obstruction has been relieved. Will follow. Copies to: EBER GONCALVES DO; LISA GIBSON MD Venous Thromboembolism Antithrombotics Is Pt On Any Antithrombotics?: No Exam Sepsis Risk: No Definite Risk ISSAC VEGA MD Jul 23, 2017 15:43
[2017-07-23] MEDS ORDERED: IMIPENEM/CILASTA(*) 500MG VIAL 500 MG in NS(*) 0.9% 100 ML BAG 100 ML IVPB SCH (18:00)
[2017-07-23] MEDS: cefTRIAXone(*) 2 GM VIAL 2 GM in NS(*) 0.9% 100 ML ADDVANT BAG 100 ML IVPB SCH (19:42)
[2017-07-23] MEDS ORDERED: cefTRIAXone 2 GM VIAL IVP SCH (20:00)
[2017-07-23] MEDS ORDERED: ZOLPIDEM TARTRATE 5 MG TAB PO PRN (21:00)
[2017-07-23] MEDS: DOCUSATE SODIUM 100 MG CAP PO SCH (21:41)
[2017-07-23] MEDS: METOPROLOL TART 50 MG TAB PO SCH (21:42)
[2017-07-24 00:23] VITALS: BP 130/77
[2017-07-24 05:49] LABS: PLATELET COUNT, AUTOMATED 156 K/uL (150-450)
[2017-07-24 07:20] VITALS: BP 163/92
[2017-07-24] MEDS: DOCUSATE SODIUM 100 MG CAP PO SCH ×2 (08:42→20:20)
[2017-07-24] MEDS: METOPROLOL TART 50 MG TAB PO SCH ×2 (08:42→20:21)
[2017-07-24] MEDS ORDERED: NS(*) 0.9% 1000 ML BAG 1,000 ML IV PRN (11:29)
[2017-07-24] MEDS ORDERED: LORazepam 0.5 MG TAB PO PRN (11:50)
[2017-07-24 11:56] VITALS: BP 165/97
[2017-07-24 19:51] VITALS: BP 162/102
[2017-07-24] MEDS: cefTRIAXone(*) 2 GM VIAL 2 GM in NS(*) 0.9% 100 ML ADDVANT BAG 100 ML IVPB SCH (19:56)
[2017-07-24] MEDS: NYSTATIN 100,000 U/GM PWD 15GM TP SCH (20:21)
--- NOTE | 2017-07-24 20:24 | Hospitalist Progress Note ---
Subjective Progress Notes Subjective Mrs. Tomlinson is a 72-year-old white female with PMH of HTN, Asthma, Obesity, Anxiety and Depression, Gall stone Pancreatitis and a history of recurrent kidney stones and urinary tract infections who presented to the emergency room in the morning hours of July 23 with right sided abdominal and flank pain. She was evaluated by the emergency room staff, who obtained a CT scan, which revealed a linear calcification approximately 2 mm long and 8 mm wide into the right UPJ with moderate hydronephrosis. She was also noted to have a 3 cm left upper pole stone. The patient was noted to have a low grade fever in the emergency room. Her white count showed normal white count but having left shift and 93 neutrophils. Her urine showed 53 WBCs per high powered field with a few bacteria. Her lactate was elevated at 2.3 and creatinine was elevated to 1.6, up from baseline of 1.1. Blood and urine cultures have been obtained. She was given broad spectrum antibiotics with Keflex and Rocephin in the emergency room. She underwent right ureteral stent placement for decompression and drainage of her right system with ureteroscopy by Dr. gibson on 07/23/1707/24: The patient is feeling better with the pain on her flank area after the stent. She is afebrile and hemodynamically stable. She is on Rocephin 2gm /day. She denies any complaint. Patient Complains of: Neurological: No: Confusion, Weakness, Dizziness Cardiovascular: No: Chest Pain, Palpitations Respiratory: No: Cough, Congestion, Shortness of Breath, Wheezing, Other Gastrointestinal: No Nausea, No Vomiting Genitourinary: No Dysuria, No Hematuria Musculoskeletal: No: Pain, Sprain Physical Exam Vital Signs Date Time Temp Pulse Resp B/P (MAP) Pulse Ox O2 Delivery O2 Flow Rate FiO2 07/24/17 19:51 97.8 61 18 162/102 (122) 96 Nasal Cannula 2.0 Intake and Output 07/25/17 07:00 Intake Total 840 ml Output Total 750 ml Balance 90 ml Intake Oral 840 ml Output Urine Total 750 ml General Appearance: Alert, Awake, No Acute Distress, Afebrile, Other (obesity) Neuro: No Gross deficits Eyes: PERRLA ENT: Normal Cardiovascular: Normal Rhythm & Peripheral Pulses Respiratory: No Respiratory Distress GI: Soft and Non-Tender : No CVA Tenderness Extremities: Soft and Non Tender, Warm, Edema Psych: Alert & Oriented X3, Appropriate Mood & Affect Result Diagram: 07/24/1753207/24/17532 Assessment and Plan Problems: (1) Hydronephrosis with ureteropelvic junction (UPJ) obstruction Status: Acute Assessment & Plan: She presented with right abdominal pain and flank pain for about 12 hours prior to admission. She had a stent placed today. Lactate now normal. BP still high. P now wnl. She was given ceftriaxone in the ER and Primaxin in the OR. Previous urine cultures are sensitive to ceftriaxone, so will continue, but at 2g q24 hours. Urine and blood cultures are pending. 07/24: I will continue her Rocephin 2 gm IV daily I will use Nystatin powder for her yeast infection I will get CBC in am I will continue IVF NS at 60ml/h (2) HTN (hypertension) Status: Chronic Assessment & Plan: Continue oral metoprolol and will use IV metoprolol for prn coverage. She might need an additional medication for better control. (3) CKD (chronic kidney disease) stage 3, GFR 30-59 ml/min Status: Chronic Assessment & Plan: Cr baseline appears to be around 1.1. Currently, 1.8. Currently getting IVF and obstruction has been relieved. Will follow. Time Spent on Plan of Care: < 30 min Copies to: EBER GONCALVES DO; LISA GIBSON MD Exam Sepsis Risk: No Definite Risk JEANNE MATA MD Jul 24, 2017 20:24
[2017-07-25] VITALS (8 sets, daily range): BP systolic 160–197; BP diastolic 92–115
[2017-07-25 06:03] LABS: PLATELET COUNT, AUTOMATED 174 K/uL (150-450)
[2017-07-25] MEDS: ONDANSETRON 4 MG/2 ML VIAL IVP PRN (07:28)
[2017-07-25] MEDS: DOCUSATE SODIUM 100 MG CAP PO SCH ×2 (08:38→20:50)
[2017-07-25] MEDS: METOPROLOL TART 50 MG TAB PO SCH ×2 (08:39→20:50)
[2017-07-25] MEDS: NYSTATIN 100,000 U/GM PWD 15GM TP SCH ×2 (08:39→20:50)
[2017-07-25] MEDS ORDERED: NS(*) 0.9% 1000 ML BAG 1,000 ML IV PRN (09:42)
[2017-07-25] MEDS: NIFEdipine XL 30 MG TABCR PO SCH (09:56)
--- NOTE | 2017-07-25 13:34 | Hospitalist Progress Note ---
Subjective Progress Notes Subjective Mrs. Tomlinson is a 72-year-old white female with PMH of HTN, Asthma, Obesity, Anxiety and Depression, Gall stone Pancreatitis and a history of recurrent kidney stones and urinary tract infections who presented to the emergency room in the morning hours of July 23 with right sided abdominal and flank pain. She was evaluated by the emergency room staff, who obtained a CT scan, which revealed a linear calcification approximately 2 mm long and 8 mm wide into the right UPJ with moderate hydronephrosis. She was also noted to have a 3 cm left upper pole stone. The patient was noted to have a low grade fever in the emergency room. Her white count showed normal white count but having left shift and 93 neutrophils. Her urine showed 53 WBCs per high powered field with a few bacteria. Her lactate was elevated at 2.3 and creatinine was elevated to 1.6, up from baseline of 1.1. Blood and urine cultures have been obtained. She was given broad spectrum antibiotics with Keflex and Rocephin in the emergency room. She underwent right ureteral stent placement for decompression and drainage of her right system with ureteroscopy by Dr. everett on 07/23/17 6: The patient is feeling better with the pain on her flank area after the stent. She is afebrile and hemodynamically stable. She is on Rocephin 2gm /day. She denies any complaint. 07/25: She is feeling tired and her BP is high 182/108 and she denies any headache or chest pain. Her UCX is positive for Proteus Mirabilis and sensitive to Ancef. I discussed the case with Dr. Everett and decided to change the antibiotics to Keflex. Patient Complains of: Neurological: Weakness, No: Confusion, Dizziness Cardiovascular: No: Chest Pain, Palpitations Respiratory: No: Cough, Congestion, Shortness of Breath Gastrointestinal: Nausea, No Vomiting Genitourinary: No Dysuria, No Hematuria Musculoskeletal: No: Pain, Sprain, Strain Physical Exam Vital Signs Date Time Temp Pulse Resp B/P (MAP) Pulse Ox O2 Delivery O2 Flow Rate FiO2 07/25/17 11:02 97.9 59 16 160/92 (114) 96 Nasal Cannula 2.0 Intake and Output 07/26/17 07:00 Intake Total 980 ml Balance 980 ml Intake Oral 980 ml General Appearance: Alert, Awake, No Acute Distress, Afebrile Neuro: No Gross deficits Eyes: PERRLA Cardiovascular: Normal Rhythm & Peripheral Pulses Respiratory: No Respiratory Distress GI: Soft and Non-Tender : No CVA Tenderness Extremities: Soft and Non Tender Psych: Alert & Oriented X3, Appropriate Mood & Affect Result Diagram: 07/25/17 0550 07/25/17 0550 Assessment and Plan Problems: (1) Hydronephrosis with ureteropelvic junction (UPJ) obstruction Status: Acute Assessment & Plan: She presented with right abdominal pain and flank pain for about 12 hours prior to admission. She had a stent placed today. Lactate now normal. BP still high. P now wnl. She was given ceftriaxone in the ER and Primaxin in the OR. Previous urine cultures are sensitive to ceftriaxone, so will continue, but at 2g q24 hours. Urine and blood cultures are pending. 07/24: I will continue her Rocephin 2 gm IV daily I will use Nystatin powder for her yeast infection I will get CBC in am I will continue IVF NS at 60ml/h 07/25: I will stop her Rocephin I will start Keflex 500mg po bid Possible d/c in am as per Dr. Everett (2) HTN (hypertension) Status: Chronic Assessment & Plan: Continue oral metoprolol and will use IV metoprolol for prn coverage. She might need an additional medication for better control. 07/25: Her BP is high 182/108 and she received her Metoprolol I will also add Procardia XL 30mg po q daily and explained to the patient (3) CKD (chronic kidney disease) stage 3, GFR 30-59 ml/min Status: Chronic Assessment & Plan: Cr baseline appears to be around 1.1. Currently, 1.8. Currently getting IVF and obstruction has been relieved. Will follow. 07/25: Her kidney function is gradually improving with Cr 1.3 and GFR 40ml/min from Cr 1.8 Time Spent on Plan of Care: > 30 min Copies to: LISA EVERETT MD Exam Sepsis Risk: No Definite Risk JEANNE MATA MD Jul 25, 2017 13:34
[2017-07-25] MEDS: CEPHALEXIN MONO 500 MG CAP PO SCH (17:17)
[2017-07-26] MEDS: CEPHALEXIN MONO 500 MG CAP PO SCH ×3 (00:19→11:16)
[2017-07-26 00:21] VITALS: BP 177/92
[2017-07-26 05:34] VITALS: BP 160/92
[2017-07-26 07:35] VITALS: BP 155/84
[2017-07-26] MEDS: ONDANSETRON 4 MG/2 ML VIAL IVP PRN (07:43)
[2017-07-26] MEDS: NIFEdipine XL 30 MG TABCR PO SCH (08:45)
[2017-07-26] MEDS: METOPROLOL TART 50 MG TAB PO SCH (08:45)
[2017-07-26] MEDS: NYSTATIN 100,000 U/GM PWD 15GM TP SCH (08:45)
[2017-07-26] MEDS: DOCUSATE SODIUM 100 MG CAP PO SCH (08:45)
--- NOTE | 2017-07-26 11:07 | DISCHARGE SUMMARY ---
DATE OF ADMISSION: July 23, 2017 DATE OF DISCHARGE: July 26, 2017 FINAL DIAGNOSES 1. Bilateral kidney stones with obstructing right proximal stone. 2. Urinary tract infection. PROCEDURE PERFORMED Right internal double-J ureter stent placement. HISTORY OF PRESENT ILLNESS Patient is a 72-year-old white female with a history of proteus UTI with obstructing stone seven years ago, who now presented to the hospital with abdominal pain. A CT scan showed bilateral stones. She had a 3 mm partial staghorn in the left upper pole without evidence of obstruction. On the right, she had a linear 8 x 6 x 20 mm stone at the right UPJ. Her urine was infected. She was, therefore, admitted to the hospital for intervention and antibiotics. SUMMARY OF HOSPITAL COURSE Patient was admitted to the hospital and taken to the operating room on the 23 of July, at which time she underwent placement of a right internal double- J stent. At stent placement, she was noted to have purulent discharge from around and through the stent. Urine and blood cultures were obtained. The patient was admitted to the hospital post procedure. Her white count was elevated at 17.7. She had a low-grade fever. She was started on Rocephin 2 g twice a day. Over the next two days, her fever and white count stabilized. She subsequently grew out proteus from both blood and urine cultures. She was switched to p.o. Keflex on the . On the , she remained afebrile without complaints except for some mild stent discomfort and was deemed ready for discharge. CONDITION AT TIME OF DISCHARGE Good. DISCHARGE INSTRUCTIONS Activities ad natan. Diet is regular. DISCHARGE MEDICATIONS 1. Keflex. 2. Colace. 3. Pyridium. 4. Cypress. 5. Ditropan. FOLLOWUP Patient is to call the Urology Clinic in the next week to set up followup. Return to operating room for stent removal and treatment of her right stone, followed by the left. It has been stressed that this stent is a temporary device and must be removed over the next several weeks. Patient voices understanding. She is also to follow up with Dr. Goldstein regarding her other medical problems including hypertension. KENNETH
[2017-07-26] MEDS ORDERED: CEPH500C24 PO (11:12)
--- NOTE | 2017-07-26 11:16 | Hospitalist Progress Note ---
Subjective Progress Notes Subjective This patient was admitted for renal stones. She had no acute issues overnight. Patient Complains of: Cardiovascular: No: Chest Pain Respiratory: No: Shortness of Breath Physical Exam Vital Signs Date Time Temp Pulse Resp B/P (MAP) Pulse Ox O2 Delivery O2 Flow Rate FiO2 07/26/17 07:52 93 Nasal Cannula 2.0 07/26/17 07:35 98.2 52 18 155/84 (107) Intake and Output 07/27/17 07:00 Intake Total 780 ml Balance 780 ml Intake Oral 780 ml Cardiovascular: Regular Rate and Rhythm Respiratory: Clear to Auscultation Result Diagram: 07/25/17 0550 07/26/17 0721 Item Value Date Time Urine Culture - Final Complete 07/23/17 1209 Ureter Urine Right Proteus Mirabilis Blood Culture - Final Complete 07/23/17 0630 Blood Line Draw Blood Culture - Final Complete 07/23/17 0628 Blood Urine Culture - Final Complete 07/23/17 0543 Cath Urine Proteus Mirabilis Assessment and Plan Problems: (1) Hydronephrosis with ureteropelvic junction (UPJ) obstruction Status: Acute Assessment & Plan: She presented with right abdominal pain and flank pain. She did undergo stent placement with Dr. Everett. (2) UTI (urinary tract infection) Assessment & Plan: Her urine culture was positive for Proteus. She was initially on treatment with ceftriaxone, but has now been converted to oral Keflex. (3) Sepsis Assessment & Plan: She did have an elevated WBC and lactic acidosis. Her blood cultures were also positive for Proteus. She is on Keflex as above. (4) HTN (hypertension) Status: Chronic Assessment & Plan: She is on chronic treatment with metoprolol, but was having elevated blood pressures during this admission. Nifedipine was added, and she is instructed to follow up with her primary care physician for ongoing treatment. (5) CKD (chronic kidney disease) stage 3, GFR 30-59 ml/min Status: Chronic Exam Sepsis Risk: No Definite Risk Problem Qualifiers (1) HTN (hypertension): Hypertension type: essential hypertension Qualified Codes: I10 - Essential ( primary) hypertension MANAV ARVIZU DO Jul 26, 2017 11:16
[2017-07-26] MEDS ORDERED: NIFE30TA92 PO (12:23)
== END 2017-07-26 12:55 | disposition home or self-care (01) | DRG 872 ==
LOC: ER 04:39 → OR 07:59 → MED 13:30 → OBSVTOIN 13:30
PROVIDERS: ADMIT Urology; ATTEND Urology
PROC: BT1DZZZ Fluoroscopy of Right Kidney, Ureter and Bladder (ICD-10-PCS; 2017-07-23)
PROC: 3E1K88Z Irrigation of Genitourinary Tract using Irrigating Substance, Via Natural or Artificial Opening Endoscopic (ICD-10-PCS; 2017-07-23)
PROC: 0T768DZ Dilation of Right Ureter with Intraluminal Device, Via Natural or Artificial Opening Endoscopic (ICD-10-PCS; principal; 2017-07-23 10:15)
DX: A41.59 Other Gram-negative sepsis (principal); N13.6 Pyonephrosis; N30.01 Acute cystitis with hematuria; I12.9 Hypertensive chronic kidney disease with stage 1 through stage 4 chronic kidney disease, or unspecified chronic kidney disease; N18.3 Chronic kidney disease, stage 3 (moderate); J45.909 Unspecified asthma, uncomplicated; F41.8 Other specified anxiety disorders; B96.4 Proteus (mirabilis) (morganii) as the cause of diseases classified elsewhere; Z90.49 Acquired absence of other specified parts of digestive tract
CPT/HCPCS: 36415; 71045; 74176; 74420; 81001; 82040; 82247; 82310; 82374; 82435; 82565; 82947; 83605; 83690; 84075; 84132; 84155; 84295; 84450; 84460; 84520; 85025; 87040; 87077; 87088; 87186; 93005; 96361; 96365; 96367; 96368; 96375; 99285; A4353; C1758; C1769; C1894; C2617; J0696; J0743; J1100; J2001; J2405; J2704; J3010; J3490; J7030; J7050; Q9966; S0119

== ENCOUNTER → 2017-07-23 | Outpatient (CLI) | payer MEDICARE ==
[~2017-07-23] MED LIST: AMLO-1 PO; AMOX-559 PO; CEPH500C24 PO; CET10 PO; CIP500 PO; DOC100 PO; FAM20 PO; IBU600 PO; KET10 PO; LEV500 PO; LISI-374 PO; LOR5/325 PO; LORA-1455 PO; METO-222 PO; NIFE30TA92 PO; OND4 PO; SALSP; [UNRECOGNIZED DRUG - CODE] PO
== END ==
LOC: AMB 04:16
PROVIDERS: ATTEND Nurse Practitioner
DX: R10.84 Generalized abdominal pain (principal); M25.559 Pain in unspecified hip; W07.XXXA Fall from chair, initial encounter
CPT/HCPCS: A0425; A0429

== ENCOUNTER 2017-08-27 00:10 | Day surgery (SDC) | payer MEDICARE ==
[2017-08-24 15:39] LABS: PLATELET COUNT, AUTOMATED 208 K/uL (150-450)
[2017-08-24 15:50] LABS: INR 0.95
--- NOTE | 2017-08-26 19:33 | HISTORY AND PHYSICAL ---
DATE OF ADMISSION: August 27, 2017 CHIEF COMPLAINT Kidney stones. HISTORY OF PRESENT ILLNESS Patient is a 72-year-old female with a long history of kidney stones who had recently presented to the Emergency Room with early urosepsis on July 23. At that time, a CT scan was performed, and she was noted to have a linear calcification in the proximal right ureter measuring 8 x 6 x 20 mm. She was also noted to have a 3 cm partial staghorn in the left upper pole without evidence of obstruction. She subsequently was taken to the operating room and underwent stent placement which drained grossly purulent material. Both urine and blood cultures subsequently grew out proteus, and she has been appropriately treated for this. She is now being returned to the operating room for planned right extracorporeal shock wave lithotripsy and/or ureteroscopy as indicated, to be shortly followed for left treatment. PAST MEDICAL HISTORY * Hypertension. * Anxiety and depression. * Obesity. * Asthma with slight hypoxia, on O2. * Urinary incontinence. * Urinary tract infections. * Pancreatitis secondary to gallstones. * Kidney stones since . PAST SURGICAL HISTORY * Right double-J stent placement with obstructing stones with proteus infection in May 2010. * Right ureteroscopy with extracorporeal shock wave lithotripsy June 2010. * Laparoscopic cholecystectomy January 2011. * Right double-J stent placement July 23, 2017. ALLERGIES No known drug allergies. CURRENT MEDICATIONS * Metoprolol. * Procardia. * Tylenol. * Oregano oil. SOCIAL HISTORY Patient lives in [place] and is a . REVIEW OF SYSTEMS Patient denies chest pain, productive cough, fever, chills, gross hematuria, nausea, vomiting, or liver disease. PHYSICAL EXAMINATION GENERAL: Patient is a moderately obese white female in no acute distress. HEENT: Normocephalic, atraumatic. CHEST: Clear to auscultation bilaterally. CARDIOVASCULAR: Regular rate and rhythm. ABDOMEN: Soft, nontender. No masses are palpated. GENITOURINARY: Deferred to the OR. EXTREMITIES: Without clubbing, cyanosis, or edema. NEUROLOGIC: Nonfocal. IMPRESSION A 72-year-old white female with a recent proteus urosepsis secondary to right obstructing ureteral stone. In addition, she has a 3 cm left upper pole partial staghorn. She is currently being decompressed with a double-J stent and treated appropriately with antibiotics. PLAN We will perform extracorporeal shock wave lithotripsy and/or ureteroscopy with possible stent removal on the right side with the current plan to follow with treatment on the left in the near future. KENNETH
[~2017-08-27] VITALS: Ht 163.8 cm; Wt 136.1 kg
[~2017-08-27 00:10] MED LIST changes: +ACET500T68 PO; +CEPH500C24 PO; +HYDR-385 PO; +NIFE30TA92 PO
[2017-08-27] MEDS ORDERED: LIDOCAINE/SOD BICARB 8.4% SYR ID ONE (06:45)
[2017-08-27] MEDS ORDERED: NORMOSOL R SOLN(*) 1000 ML BAG 1,000 ML IV PRN (06:45)
[2017-08-27] MEDS ORDERED: MIDAZOLAM 2 MG/2 ML VIAL IVP PRN (06:45)
[2017-08-27] MEDS ORDERED: ceFAZolin(*) 2GM/D5W 50ML 50 ML IVPB ONE (06:45)
[2017-08-27] MEDS ORDERED: FAMOTIDINE 20 MG TAB PO ONE (06:45)
[2017-08-27 06:51] VITALS: BP 167/99
[2017-08-27] MEDS ORDERED: ONDANSETRON 4 MG/2 ML VIAL ONE (07:42)
[2017-08-27] MEDS ORDERED: DEXAMETHASONE SOD PHOS 10MG/ML ONE (07:42)
[2017-08-27] MEDS ORDERED: PROPOFOL EMUL(*) 10MG/ML 20 ML 20 ML ONE (07:42)
[2017-08-27] MEDS ORDERED: IOPAMIDOL-200 50 ML VIAL IS ONE (07:45)
--- NOTE | 2017-08-27 08:23 | RADIOLOGY IMAGING REPORT ---
FACILITY: [facility] PATIENT NAME: Sarah Tomlinson : 1945 MR: [id number] V: [id number] EXAM DATE: ORDERING PHYSICIAN: LISA GIBSON TECHNOLOGIST: Location: [facility] [place] Patient: Sarah Tomlinson : 1945 Visit/Account:[id number] Date of Sevice: 08/20/2017 ABDOMEN PELVIS ESWL CYSTO W/O EXAMINATION: CT abdomen/pelvis without IV contrast Additional Pertinent history: Kidney stones TECHNIQUE: Spiral scan was obtained through the abdomen/pelvis last pelvis without intravenous cont rast. One of the following dose optimization techniques was utilized in the performance of this exam: Autom ated exposure control; adjustment of the mA and/or kV according to the patient's size; or use of an i terative reconstruction technique. Specific details can be referenced in the facility's radiology C T exam operational policy. COMPARISON STUDIES: 07/23/2017. FINDINGS: Please note that without intravenous contrast, sensitivity to detection of parenchymal disease is barrera ited. Liver / biliary: There is a elliptical 1.5 x 0.9 calcific density with right lobe of the liver in the upper lateral aspect right lobe. Pancreas: negative Spleen: negative Adrenal glands: Negative Kidneys / retroperitoneum: Compared to the previous study of admission right ureteral stent and decom pression previous right hydronephrosis. The obstructing stone proximal right ureter seen on the prev ious examination is no longer identified. Partial upper pole staghorn calculus in the left kidney re identified. Pelvis: Calcified uterine fibroid. No adnexal mass lesions. Bowel / peritoneum / mesenteries: No colonic mass lesion diverticuli without evidence of diverticulit is. Appendix normal no appendicitis. Vessels: No aneurysmal dilatation. Musculoskeletal / Body wall: Vacuum phenomenon Lymph node assessment: negative Lower chest: negative IMPRESSION: 1. Decompressed right renal obstruction previously seen and described on 07/23/2017 after placement w ith double-J ureteral stent within the right ureter. No evidence of residual stones within the right kidney. Persistent periureteral stranding. 2. Partial staghorn calculus in the upper pole of the left kidney measuring 2.7 x 1.6 cm in greatest dimension 3. Calcification in the right lobe of liver likely sequela from previous trauma/infection. This was seen on of CT scan of the abdomen dating back to 2010 Report Dictated By: Tex Lockhart MD at 08/27/2017 8:07 AM Report E-Signed By: Tex Lockhart MD at 08/27/2017 8:20 AM WSN:[email or web address]
[2017-08-27] MEDS ORDERED: fentaNYL CITR 100 MCG/2 ML AMP ONE ×2 (09:51→10:24)
[2017-08-27] MEDS ORDERED: HYDR-4309 PO (10:27)
[2017-08-27] MEDS ORDERED: DOCU-416 PO (10:28)
[2017-08-27] MEDS ORDERED: SULF-198 PO (10:29)
[2017-08-27] MEDS ORDERED: OXYB10TA21 PO (10:29)
[2017-08-27] MEDS ORDERED: PHEN200T32 PO (10:30)
[2017-08-27 11:04] VITALS: BP 158/91
[2017-08-27] MEDS ORDERED: APAP/HYDROCODONE 325/5 TAB PO PRN (11:15)
[2017-08-27 11:30] VITALS: BP 157/94
[2017-08-27 11:55] VITALS: BP 168/102
[2017-08-27 12:01] VITALS: BP 146/100
--- NOTE | 2017-08-27 13:20 | OPERATIVE REPORT 1 ---
EVENT DATE: August 27, 2017 SURGEON: Clarence Everett MD ANESTHESIOLOGIST: Ramirez Soto MD ANESTHESIA: General anesthetic. PREOPERATIVE DIAGNOSES 1. Right indwelling ureteral stent with history of obstructing infected ureteral stone. 2. Left upper pole partial staghorn calculus. POSTOPERATIVE DIAGNOSES 1. Right indwelling ureteral stent with history of obstructing infected ureteral stone. 2. Left upper pole partial staghorn calculus. PROCEDURES PERFORMED 1. Cystoscopy. 2. Grasping and removal of right double-J stent. 3. Right semi-rigid ureteroscopy. 4. Right retrograde polygram. 5. Left internal double-J ureteral stent placement. 6. Left upper pole extracorporeal shock wave lithotripsy. ESTIMATED BLOOD LOSS Minimal. INTRAVENOUS FLUIDS Crystalloids. DRAINS A 6-Yemeni x 24 cm Contour stent on left. COMPLICATIONS None. CONDITION The patient was taken to the recovery room awake and in stable condition. STATEMENT OF MEDICAL NECESSITY Patient is a 72-year-old white female who presented with an obstructing infected stone approximately one month ago. Her blood and urine cultures eventually grew out proteus. She was taken to the operating room on the 23 of July and underwent right internal double-J stent placement for an 8 mm x 20 mm long calcification in the right proximal ureter. At stent placement, she had a copious amount of purulent material drained from the kidney. Followup x- ray today reveals good stent placement. There is no obvious stone along the stent or in the right kidney. Her left stone has remained unchanged. She is now being brought to the operating room for planned stent removal, possible ureteroscopy stone treatment on the right, followed by stent placement on the left with extracorporeal shock wave lithotripsy. DESCRIPTION OF PROCEDURE PERFORMED The patient was brought to the operating room. After general anesthetic was obtained, she was placed in the dorsal lithotomy position and prepped and draped in the usual sterile manner. Anesthetic cystoscopy was performed with a 21-Yemeni rigid sheath and a 30-degree lens. The stent was seen emanating from the left ureteral orifice. It was grasped at a distal end and brought out of the meatus. A 0.035 wire was then introduced into the lumen of the double-J stent and advanced in a retrograde manner under fluoroscopic imaging to the upper pole calyx. The stent was removed, and this wire was used to place an ATN dilating system. Two wires were placed. One wire was secured to the drapes as a safety wire. The next wire was used as a working wire and advanced in the working channel of the semi-rigid Story ureteroscope. Semi-rigid ureteroscopy was performed over the wire under direct vision with the aid of the camera. The scope easily advanced up the entire ureter without any resistance. There was no evidence of stone, stricture, or other anomaly from the ureteral orifice up to the renal pelvis. The working wire was removed and pull-out uroscopy performed. The entire ureter was inspected and also appeared normal. At this point, the safety wire was removed. The cystoscope was then replaced, and a 6-Yemeni open-end access catheter was used to perform a right retrograde polygram by injecting 7 mL of contrast material in a retrograde manner. By my intraoperative interpretation, she had a normal retrograde polygram without evidence of filling defect or obstruction. Following this, the -6 Yemeni access catheter was advanced into the distal left ureter. A 0.035 wire was advanced up the ureter to the upper pole calyx. The access catheter was removed, and the wire was used to place a 6-Yemeni x 24 cm Contour stent. The wire was removed. She was noted to have good coiling in the renal pelvis by fluoroscopy and good coiling in the bladder by direct vision. At this point , the scope was removed and an 18-Yemeni Stout catheter placed. She was then transferred from the cystoscopic table to the lithotripsy table. She was placed supine with her pressure points padded. Two-plane fluoroscopy was used to localize the left upper pole stone. After placing the crosshairs in two planes, treatment was begun at a power setting of 3 and gradually increased to a power setting of 3.5 over the course of the first 300 shocks. A 3-minute pause was then performed, and treatment was resumed. She received a total of 3000 shocks to the upper pole stone. Fragmenting was first noted at approximately 1000 shocks. The power was gradually increased to a power setting of 8. At the conclusion of treatment, she appeared to have excellent fragmentation of this large stone. She was then awakened in the operating room and taken to the recovery area in stable condition. PLAN The plan will be to remove her Stout catheter, and she will be discharged home today on Bactrim, [place], Colace, Ditropan XL, and Pyridium. We will plan to see her in the Urology Clinic in approximately four to six weeks with a followup x-ray to evaluate treatment results. If she is deemed mostly stone- free, we will remove her stent in the office versus return to the operating room for follow up lithotripsy and/or ESWL. KENNETH
--- NOTE | 2017-08-27 16:11 | RADIOLOGY IMAGING REPORT ---
FACILITY[place] [facility] [place] PATIENT NAME: Sarah Tomlinson : 1945 MR: [id number] V: [id number] EXAM DATE: ORDERING PHYSICIAN: LISA GIBSON [place]CHN[place] [facility] [place] Toml[place] : 1945 Visit/Account:[id number] Date of Sevice: 08/27/2017 EXAMINATION: Intraoperative fluoroscopy with abdominal imaging 08/27/2017 12:53 PM HISTORY: Stones. Stent placement. COMPARISON: CT today FLUOROSCOPY TIME: 0.29 minutes DOSE: 46.42 mGy IMAGES: 18 FINDINGS: Intraoperative fluoroscopy was provided with imaging of the abdomen. Initial image shows a right ureteral stent with subsequent is some indentation on the right followed by the left. There is a left ureteral stent on the final image. IMPRESSION: Intraoperative fluoroscopy for retrograde with stent placement. Report Dictated By: Bryce Angelo MD at 08/27/2017 4:06 PM Report E-Signed By: Bryce Angelo MD at 08/27/2017 4:08 PM WSN:[email or web address]
== END 2017-08-27 11:04 | disposition home or self-care (01) ==
LOC: OR 00:10
PROVIDERS: ATTEND Urology
DX: N20.0 Calculus of kidney (principal); F32.9 Major depressive disorder, single episode, unspecified; F41.9 Anxiety disorder, unspecified; E66.9 Obesity, unspecified; J45.909 Unspecified asthma, uncomplicated; I12.9 Hypertensive chronic kidney disease with stage 1 through stage 4 chronic kidney disease, or unspecified chronic kidney disease; N18.3 Chronic kidney disease, stage 3 (moderate)
CPT/HCPCS: 36415; 50590; 52332; 74176; 74420; 81001; 85025; 85610; A9270; J1100; J2405; J2704; J3010; Q9966; C1758; C1769; C1894; C2617; J0690

== ENCOUNTER 2017-09-11 19:42 | Emergency (ER) | payer MEDICARE ==
[~2017-09-11 19:42] MED LIST changes: +DOCU-416 PO; +HYDR-4309 PO; +OXYB10TA21 PO; +PHEN200T32 PO; +SULF-198 PO
[2017-09-11] MEDS ORDERED: ONDANSETRON 4 MG/2 ML VIAL IVP ONE (20:50)
[2017-09-11] MEDS ORDERED: HYDROMORPHONE HCL 1 MG/ML SYRINGE IVP ONE (20:50)
[2017-09-11] MEDS ORDERED: NS(*) 0.9% 1000 ML BAG 1,000 ML IV ONE (20:50)
--- NOTE | 2017-09-11 20:51 | ER Report ---
History and Physical Time Seen By MD: 20:44 Hx. of Stated Complaint: ABD PAIN LEFT FLANK HPI/ROS CHIEF COMPLAINT: flank pain HISTORY OF PRESENT ILLNESS: This is a 72 year old female. She has a history of kidney stones and has a left sided ureteral stent. She is having pain in the left flank now, not improved with her home Lortab. Severe pain. Nothing makes it worse or better. She has some pain with urination. No fevers, but having chills. No shortness of breath. No chest pain. Having some nausea. REVIEW OF SYSTEMS: As above. Allergies: Coded Allergies: Sulfa (Sulfonamide Antibiotics) (Verified Allergy, Unknown, 09/11/17) Home Meds Active Scripts Levofloxacin 500 Mg Tab (LEVAQUIN 500 MG TAB) 500 Mg Tablet, 500 MG PO QDAY, # 10 TAB 0 Refills Prov:LOIS VILLANUEVA MD 09/11/17 Promethazine Hcl (PROMETHAZINE HCL) 25 Mg Tablet, 25 MG PO Q8H Y for NAUSEA/ VOMITING, #20 TAB 0 Refills Prov:LOIS VILLANUEVA MD 09/11/17 Oxycodone Hcl/Acetaminophen (PERCOCET 5-325 MG TABLET) 1 Each Tablet, 1 EACH PO Q4H Y for PAIN, #12 TAB 0 Refills Prov:LOIS VILLANUEVA MD 09/11/17 Nifedipine (PROCARDIA XL) 30 Mg Tab.er.24, 30 MG PO QDAY, #30 TAB Prov:MANAV ARVIZU DO 07/26/17 Reported Medications Docusate Sodium (COLACE) 100 Mg Capsule, 100 MG PO BID, #30 CAPSULE 08/27/17 Hydrocodone Bit/Acetaminophen (NORCO 5-325 TABLET) 1 Each Tablet, 1-2 EACH PO Q6H Y for PAIN, #30 TAB 08/27/17 Hydrocodone Bit/Acetaminophen (HYDROCODON-ACETAMINOPHEN 5-325) 1 Each Tablet, 1 EACH PO HS, TAB 08/20/17 Metoprolol Tartrate (Metoprolol Tartrate) 100 Mg Tablet, 100 MG PO BID, #60 0 Refills 06/26/10 Discontinued Reported Medications Phenazopyridine Hcl (PHENAZOPYRIDINE HCL) 200 Mg Tablet, 200 MG PO TID, TAB 08/27/17 Oxybutynin Chloride (DITROPAN XL) 10 Mg Tab.er.24, 10 MG PO QDAY, #20 TAB 08/27/17 Sulfamethoxazole/Trimet 800-160 Mg Tab (BACTRIM DS TABLET) 1 Each Tablet, 1 TAB PO BID, #14 TAB 08/27/17 Reviewed Nurses Notes: Yes Hx Smoking: No Smoking Status: Never Smoker Hx Substance Use Disorder: No Hx Alcohol Use: No Constitutional Vital Sign - Last 24 Hours 09/11/17 09/11/17 09/11/17 09/11/17 20:12 20:14 20:27 20:30 Temp 97.9 Pulse 123 122 120 Resp 24 B/P (MAP) 214/115 (148) 214/115 215/112 (146) Pulse Ox 94 95 O2 Delivery Room Air Room Air 09/11/17 09/11/17 09/11/17 09/11/17 20:42 21:00 21:12 21:12 Pulse 117 103 B/P (MAP) 181/104 (129) Pulse Ox 96 82 O2 Delivery Room Air Room Air O2 Flow Rate 2.0 09/11/17 09/11/17 09/11/17 09/11/17 21:27 21:30 21:35 21:50 Pulse 103 101 97 B/P (MAP) 190/101 (130) Pulse Ox 92 83 94 O2 Delivery Nasal Cannula O2 Flow Rate 2 09/11/17 09/11/17 09/11/17 09/11/17 22:00 22:05 22:20 22:30 Pulse ??? 104 B/P (MAP) 190/111 (137) 188/103 (131) Pulse Ox 94 95 09/11/17 09/11/17 09/11/17 09/11/17 22:35 23:17 23:20 23:30 Pulse 102 102 B/P (MAP) 158/82 (107) 159/82 (107) Pulse Ox 96 95 09/11/17 09/11/17 09/11/17 09/12/17 23:35 23:40 23:52 00:18 Pulse 98 98 B/P (MAP) 153/77 (102) Pulse Ox 95 95 92 O2 Delivery Room Air Physical Exam General Appearance: The patient is alert. Acute distress due to pain. Eyes: Pupils are equal, round. No pallor, injection or icterus. ENT: Mucous membranes are moist. Normal oral mucosa Respiratory: Lungs are clear to auscultation. Cardiovascular: Regular rate and rhythm. No murmurs, gallops or rubs. Gastrointestinal: abdomen with pain left side and flank. Nondistended. DIFFERENTIAL DIAGNOSIS: After history and physical exam, differential diagnosis was considered for flank pain, likely related to the ureteral stent, or possibly due to obstruction or infection. Medical Decision Making Data Points Result Diagram: 09/11/17210409/11/172104 Laboratory Hematology Test 09/11/17 21:05 09/11/17 22:04 Red Blood Count 4.95 M/uL (4.17-5.56) Mean Corpuscular Volume 88.1 fL (80.0-96.0) Mean Corpuscular Hemoglobin 30.1 pg (26.0-33.0) Mean Corpuscular Hemoglobin Concent 34.1 g/dL (32.0-36.0) Red Cell Distribution Width 15.8 % (11.5-14.5) Mean Platelet Volume 8.1 fL (7.2-11.1) Neutrophils (%) (Auto) 87.3 % (39.4-72.5) Lymphocytes (%) (Auto) 7.2 % (17.6-49.6) Monocytes (%) (Auto) 4.4 % (4.1-12.4) Eosinophils (%) (Auto) 0.1 % (0.4-6.7) Basophils (%) (Auto) 1.0 % (0.3-1.4) Nucleated RBC Relative Count (auto) 0.0 /100WBC Neutrophils # (Auto) 8.4 K/uL (2.0-7.4) Lymphocytes # (Auto) 0.7 K/uL (1.3-3.6) Monocytes # (Auto) 0.4 K/uL (0.3-1.0) Eosinophils # (Auto) 0.0 K/uL (0.0-0.5) Basophils # (Auto) 0.1 K/uL (0.0-0.1) Nucleated RBC Absolute Count (auto) 0.00 K/uL Sodium Level 138 mmol/L (137-145) Potassium Level 3.8 mmol/L (3.5-5.0) Chloride Level 106 mmol/L (98-107) Carbon Dioxide Level 20 mmol/L (22-31) Blood Urea Nitrogen 18 mg/dl (7-18) Creatinine 1.40 mg/dl (0.52-1.04) Glomerular Filtration Rate Calc 37.1 Random Glucose 133 mg/dl (75-110) Calcium Level 9.8 mg/dl (8.4-10.2) Total Bilirubin 0.8 mg/dl (0.2-1.3) Aspartate Amino Transf (AST/SGOT) 47 U/L (0-35) Alanine Aminotransferase (ALT/SGPT) 45 U/L (0-56) Alkaline Phosphatase 115 U/L (0-126) Total Protein 7.8 g/dl (6.3-8.2) Albumin 4.3 g/dl (3.5-5.0) Urine Color Yellow Urine Clarity Cloudy Urine pH 7.0 pH (4.8-9.5) Urine Specific [place] 1.015 Urine Protein 100 mg/dL (NEGATIVE) Urine Glucose (UA) Negative mg/dL (NEGATIVE) Urine Ketones 20 mg/dL (NEGATIVE) Urine Blood Moderate (NEGATIVE) Urine Nitrite Positive (NEGATIVE) Urine Bilirubin Negative (NEGATIVE) Urine Urobilinogen Negative mg/dL (0.2-1.9) Urine Leukocyte Esterase Large (NEGATIVE) Urine RBC 59 /HPF (0-2/HPF) Urine WBC 328 /HPF (0-5/HPF) Urine Squamous Epithelial Cells None /LPF (NONE-FEW) Urine Bacteria Many /HPF (NONE-FEW) Urine Mucus None /HPF (NONE-FEW) Chemistry Test 09/11/17 21:05 09/11/17 22:04 White Blood Count 9.6 k/uL (4.5-11.0) Red Blood Count 4.95 M/uL (4.17-5.56) Hemoglobin 14.9 g/dL (12.0-16.0) Hematocrit 43.6 % (34.0-47.0) Mean Corpuscular Volume 88.1 fL (80.0-96.0) Mean Corpuscular Hemoglobin 30.1 pg (26.0-33.0) Mean Corpuscular Hemoglobin Concent 34.1 g/dL (32.0-36.0) Red Cell Distribution Width 15.8 % (11.5-14.5) Platelet Count 233 K/uL (150-450) Mean Platelet Volume 8.1 fL (7.2-11.1) Neutrophils (%) (Auto) 87.3 % (39.4-72.5) Lymphocytes (%) (Auto) 7.2 % (17.6-49.6) Monocytes (%) (Auto) 4.4 % (4.1-12.4) Eosinophils (%) (Auto) 0.1 % (0.4-6.7) Basophils (%) (Auto) 1.0 % (0.3-1.4) Nucleated RBC Relative Count (auto) 0.0 /100WBC Neutrophils # (Auto) 8.4 K/uL (2.0-7.4) Lymphocytes # (Auto) 0.7 K/uL (1.3-3.6) Monocytes # (Auto) 0.4 K/uL (0.3-1.0) Eosinophils # (Auto) 0.0 K/uL (0.0-0.5) Basophils # (Auto) 0.1 K/uL (0.0-0.1) Nucleated RBC Absolute Count (auto) 0.00 K/uL Glomerular Filtration Rate Calc 37.1 Calcium Level 9.8 mg/dl (8.4-10.2) Total Bilirubin 0.8 mg/dl (0.2-1.3) Aspartate Amino Transf (AST/SGOT) 47 U/L (0-35) Alanine Aminotransferase (ALT/SGPT) 45 U/L (0-56) Alkaline Phosphatase 115 U/L (0-126) Total Protein 7.8 g/dl (6.3-8.2) Albumin 4.3 g/dl (3.5-5.0) Urine Color Yellow Urine Clarity Cloudy Urine pH 7.0 pH (4.8-9.5) Urine Specific [place] 1.015 Urine Protein 100 mg/dL (NEGATIVE) Urine Glucose (UA) Negative mg/dL (NEGATIVE) Urine Ketones 20 mg/dL (NEGATIVE) Urine Blood Moderate (NEGATIVE) Urine Nitrite Positive (NEGATIVE) Urine Bilirubin Negative (NEGATIVE) Urine Urobilinogen Negative mg/dL (0.2-1.9) Urine Leukocyte Esterase Large (NEGATIVE) Urine RBC 59 /HPF (0-2/HPF) Urine WBC 328 /HPF (0-5/HPF) Urine Squamous Epithelial Cells None /LPF (NONE-FEW) Urine Bacteria Many /HPF (NONE-FEW) Urine Mucus None /HPF (NONE-FEW) Urinalysis Test 09/11/17 22:04 Urine Color Yellow Urine Clarity Cloudy Urine pH 7.0 pH (4.8-9.5) Urine Specific [place] 1.015 Urine Protein 100 mg/dL (NEGATIVE) Urine Glucose (UA) Negative mg/dL (NEGATIVE) Urine Ketones 20 mg/dL (NEGATIVE) Urine Blood Moderate (NEGATIVE) Urine Nitrite Positive (NEGATIVE) Urine Bilirubin Negative (NEGATIVE) Urine Urobilinogen Negative mg/dL (0.2-1.9) Urine Leukocyte Esterase Large (NEGATIVE) Urine RBC 59 /HPF (0-2/HPF) Urine WBC 328 /HPF (0-5/HPF) Urine Squamous Epithelial Cells None /LPF (NONE-FEW) Urine Bacteria Many /HPF (NONE-FEW) Urine Mucus None /HPF (NONE-FEW) EKG/Imaging Imaging INDICATION: left flank pain, h/o stent EXAM DATE: 09/11/2017 10:39 PM COMPARISON: Fluoroscopic images and CT abdomen and pelvis 08/27/2017. FINDINGS: 2 AP supine images of the abdomen. There is a left ureteral stent in place with pigtails in the expected locations of the collecting system and urinary bladder. Previously seen staghorn calculus in the left kidney is not well demonstrated. Cholecystectomy clips noted. Bowel gas pattern is nonobstructive. No pneumatosis, pneumoperitoneum or portal venous gas. No evidence of large volume ascites or mass. No acute osseous abnormality. IMPRESSION: Left ureteral stent appears grossly appropriately positioned, otherwise unremarkable. Report Dictated By: Diego Ervin MD at 09/11/2017 11:24 PM ED Course/Re-evaluation Clinical Indication for ER IV: Hydration, IV Access ED Course Pain improved with Dilaudid 1mg IV. She has a urinary tract infection. Discussed with Dr. Everett. The patient was on Keflex recently and had hives with her Bactrim, so chose to start her on Levaquin at this time. She will follow-up as an outpatient. Decision to Disposition Date: Sep 11, 2017 Decision to Disposition Time: 23:39 Depart Departure Latest Vital Signs Vital Signs Date Time Temp Pulse Resp B/P (MAP) Pulse Ox O2 Delivery O2 Flow Rate FiO2 09/12/17 00:18 92 Room Air 09/11/17 23:52 153/77 (102) 09/11/17 23:40 98 09/11/17 21:27 2 09/11/17 20:14 97.9 24 Impression: Primary Impression: Urinary tract infection Additional Impression: S/P ureteral stent placement Condition: Improved Disposition: HOME OR SELF-CARE Referrals: EBER GONCALVES DO (PCP) New Scripts Levofloxacin 500 Mg Tab (LEVAQUIN 500 MG TAB) 500 Mg Tablet 500 MG PO QDAY, #10 TAB 0 Refills Prov: LOIS VILLANUEVA MD 09/11/17 Promethazine Hcl (PROMETHAZINE HCL) 25 Mg Tablet 25 MG PO Q8H Y for NAUSEA/VOMITING, #20 TAB 0 Refills Prov: LOIS VILLANUEVA MD 09/11/17 Oxycodone Hcl/Acetaminophen (PERCOCET 5-325 MG TABLET) 1 Each Tablet 1 EACH PO Q4H Y for PAIN, #12 TAB 0 Refills Prov: LOIS VILLANUEVA MD 09/11/17 Patient Instructions: Urinary Tract Infection in Women (ED) Additional Instructions: Take Percocet 5/325, one every 4 hours as needed for pain. Phenergan 25mg, 1/2 or 1 tablet every 8 hours as needed for nausea. Levaquin 500mg once a day for 10 days. Problem Qualifiers Primary Impression: Urinary tract infection Urinary tract infection type: site unspecified Hematuria presence: without hematuria Qualified Codes: N39.0 - Urinary tract infection, site not specified LOIS VILLANUEVA MD Sep 11, 2017 20:51
[2017-09-11 21:13] LABS: PLATELET COUNT, AUTOMATED 233 K/uL (150-450)
[2017-09-11] MEDS ORDERED: NIFEdipine XL 30 MG TABCR PO SCH (22:30)
[2017-09-11] MEDS ORDERED: METOPROLOL TART 50 MG TAB PO ONE (22:30)
[2017-09-11] MEDS ORDERED: LORazepam 2 MG/ML VIAL IVP ONE (22:35)
--- NOTE | 2017-09-11 23:32 | RADIOLOGY IMAGING REPORT ---
FACILITY: [facility] PATIENT NAME: Sarah Tomlinson : 1945 MR: [id number] V: [id number] EXAM DATE: ORDERING PHYSICIAN: LOIS VILLANUEVA TECHNOLOGIST: Location: [facility] Patient: Sarah Tomlinson : 1945 Visit/Account:[id number] Date of Sevice: 09/11/2017 INDICATION: left flank pain, h/o stent EXAM DATE: 09/11/2017 10:39 PM COMPARISON: Fluoroscopic images and CT abdomen and pelvis 08/27/2017. FINDINGS: 2 AP supine images of the abdomen. There is a left ureteral stent in place with pigtails in the expected locations of the collecting sys tem and urinary bladder. Previously seen staghorn calculus in the left kidney is not well demonstrat ed. Cholecystectomy clips noted. Bowel gas pattern is nonobstructive. No pneumatosis, pneumoperitoneum or portal venous gas. No eviden ce of large volume ascites or mass. No acute osseous abnormality. IMPRESSION: Left ureteral stent appears grossly appropriately positioned, otherwise unremarkable. Report Dictated By: Diego Ervin MD at 09/11/2017 11:24 PM Report E-Signed By: Diego Ervin MD at 09/11/2017 11:28 PM WSN:[id number]
[2017-09-11] MEDS ORDERED: oxyCODONE/ACETAMIN 5/325MG TH 2 TAB/BOTTLE PO ONE (23:40)
[2017-09-11] MEDS ORDERED: PROMETHAZINE HCL 25 MG TAB TH 2 TAB/BOTTLE PO ONE (23:40)
[2017-09-11] MEDS ORDERED: LEVOFLOXACIN 500 MG TAB PO ONE (23:40)
[2017-09-11] MEDS ORDERED: LEVO-85 PO (23:43)
[2017-09-11] MEDS ORDERED: OXYC-865 PO (23:43)
[2017-09-11] MEDS ORDERED: PROM-110 PO (23:43)
[2017-09-11 23:52] VITALS: BP 153/77
== END 2017-09-12 00:20 | disposition home or self-care (01) ==
LOC: ER 20:18
DX: N39.0 Urinary tract infection, site not specified (principal); B96.4 Proteus (mirabilis) (morganii) as the cause of diseases classified elsewhere
CPT/HCPCS: 74018; 81001; 85025; 87077; 87088; 87186; 96374; 96375; 99284; A9270; J1170; J2060; J2405; J7030; 82040; 82247; 82310; 82374; 82435; 82565; 82947; 84075; 84132; 84155; 84295; 84450; 84460; 84520

== ENCOUNTER → 2017-09-18 | Outpatient (CLI) | payer MEDICARE ==
[~2017-09-18] MED LIST changes: +LEVO-85 PO; +OXYC-865 PO; +PROM-110 PO
--- NOTE | 2017-09-21 15:06 | RADIOLOGY IMAGING REPORT ---
FACILITY: [facility] PATIENT NAME: Sarah Tomlinson : 1945 MR: [id number] V: [id number] EXAM DATE: ORDERING PHYSICIAN: LISA GIBSON TECHNOLOGIST: Location: [facility] Patient: Sarah Tomlinson : 1945 Visit/Account:[id number] Date of Sevice: 09/21/2017 ABDOMEN PELVIS ESWL CYSTO W/O HISTORY: History of kidney stones TECHNIQUE: Axial images acquired through the abdomen/pelvis. Coronal and sagittal reformatting also performed. No IV contrast administered. COMPARISON: August 27, 2017 FINDINGS: Visualized lung bases: There is a 3 mm noncalcified nodule posterior aspect right lower lobe best se en on image 36 of series 5 and appears unchanged there is an additional 2 mm nodule posterior aspect right lower lobe best seen on image 81 of series 5 also unchanged Hepatobiliary: Capsular calcifications are present along the right lobe of the liver appear unchange d. There are postsurgical changes from a cholecystectomy Spleen: Negative. Adrenals: There is nodular thickening of both adrenal glands similar to the prior study Pancreas: Negative. Kidneys ureters and bladder: There is no evidence of right-sided urolithiasis hydronephrosis. There is very mild fat stranding surrounding the right renal pelvis and proximal right ureter likely relate d to the prior right ureteral stent which has been removed in the interim There is now a left ureteral stent distal pigtail within the bladder and the proximal pigtail in the left renal pelvis. There is no evidence of a left hydronephrosis. Partial staghorn calculus in the upper pole of the left kidney appears smaller and more fragmented. There is a 2 mm calculus lower po le calyx the left kidney in addition to a 5 mm calculus also in the lower pole calyx of the left kidn ey Genitalia: Coarse calcifications are again seen within the uterus likely representing fibroid. Ther e is an additional 2.5 cm mass projecting from the posterior left fundal region may represent an ever tional fibroid GI: Diverticulosis left-sided colon although no CT evidence of acute diverticulitis. Vessels/spaces/nodes: Negative. Bones/soft tissues: Spondylotic changes of the thoracolumbar spine Additional findings: None pertinent. IMPRESSION: Previously noted partial staghorn calculus upper pole left kidney appears smaller and more fragmented . There is a 2 mm and 5 mm nonobstructing calculus lower pole calyx of the left kidney as well. Lef t ureteral stent appears to been good position without evidence of hydronephrosis No evidence of right-sided urolithiasis or hydronephrosis Additional chronic findings as described Report Dictated By: Avis Boothe MD at 09/21/2017 2:46 PM Report E-Signed By: Avis Boothe MD at 09/21/2017 3:02 PM JUDITHN:[email or web address]
== END ==
LOC: CT 16:08
PROVIDERS: ATTEND Urology
DX: N20.0 Calculus of kidney (principal); K57.30 Diverticulosis of large intestine without perforation or abscess without bleeding; M47.895 Other spondylosis, thoracolumbar region

== ENCOUNTER 2017-10-05 01:28 | Day surgery (SDC) | payer MEDICARE ==
--- NOTE | 2017-10-02 15:06 | HISTORY AND PHYSICAL ---
DATE OF ADMISSION: October 05, 2017 CHIEF COMPLAINT Left kidney stones with indwelling stent. HISTORY OF PRESENT ILLNESS Patient is a 72-year-old white female with a long history of kidney stones who recently presented to the Emergency Room in July with an obstructing right proximal stone. At that time, she was also noted to have a 3 cm partial staghorn in the upper pole of the left side. She was taken to the operating room on the for definitive stone treatment after having a stent placed several weeks before. At that time, her right stent was removed, and she had ureteroscopy on that side which was normal. Therefore, a left stent was placed, and she underwent extracorporeal shock wave lithotripsy of this left 3 x 1.5 cm stone. In followup in the office, she was noted to have fairly good fragmentation of this stone into several smaller collections, primarily in the upper pole. She is now being brought to the operating room for planned stent exchange and/or extracorporeal shock wave lithotripsy and/or ureteroscopy. PAST MEDICAL HISTORY 1. Hypertension. 2. Anxiety and depression. 3. Obesity. 4. Asthma. 5. Urinary incontinence. 6. UTI. 7. Pancreatitis. 8. Kidney stones. PAST SURGICAL HISTORY 1. Right double-J stent placement for proteus infection May 2010. 2. Right ureteroscopy. 3. Extracorporeal shock wave lithotripsy in June 2010. 4. Laparoscopic cholecystectomy January 2011. 5. Right double-J stent placement July 23, 2017. 6. Right ureteroscopy with double-J stent on left and extracorporeal shock wave lithotripsy of the left upper pole August 27, 2017. ALLERGIES No known drug allergies. CURRENT MEDICATIONS 1. Metoprolol. 2. Procardia. 3. Tylenol. 4. [place]. 5. Colace. 6. Ditropan XL. 7. Pyridium. SOCIAL HISTORY Patient is a and lives in [place], [place]. REVIEW OF SYSTEMS Patient denies productive cough, fever, chills, chest pain, nausea, vomiting, liver disease, or bleeding disorder. PHYSICAL EXAMINATION GENERAL: Patient is a moderately obese, white female in no acute distress. HEENT: Normocephalic, atraumatic. CHEST: Clear to auscultation bilaterally. CARDIOVASCULAR: Regular rate and rhythm. ABDOMEN: Soft, nontender. No masses are palpated. GENITOURINARY: Deferred to the OR. EXTREMITIES: Without clubbing, cyanosis, or edema. NEUROLOGIC: Nonfocal. IMPRESSION A 72-year-old white female who is status post extracorporeal shock wave lithotripsy of a 3 x 1.5 cm upper pole stone on the left with indwelling stent placement. She has recurrent or persistent fragments. PLAN Will plan to do stent exchange with possible ureteroscopy and followup extracorporeal shock wave lithotripsy as indicated. KENNETH
[2017-10-05] VITALS (9 sets, daily range): BP systolic 158–179; BP diastolic 87–116
[~2017-10-05] VITALS: Ht 165.1 cm; Wt 133.8 kg
[~2017-10-05 01:28] MED LIST changes: +CHLO1TAB PO; +NITR-57 PO
[2017-10-05] MEDS ORDERED: DEXAMETHASONE SOD 4 MG/ML VIAL ONE (09:24)
[2017-10-05] MEDS ORDERED: ONDANSETRON 4 MG/2 ML VIAL ONE (09:24)
[2017-10-05] MEDS ORDERED: fentaNYL CITR 100 MCG/2 ML AMP ONE ×3 (09:24→13:40)
[2017-10-05] MEDS ORDERED: PROPOFOL EMUL(*) 10MG/ML 20 ML 20 ML ONE ×2 (09:24→11:48)
[2017-10-05] MEDS ORDERED: LIDOCAINE MPF 1% 5 ML VIAL ONE (09:24)
[2017-10-05] MEDS ORDERED: FAMOTIDINE 20 MG TAB PO ONE (11:05)
[2017-10-05] MEDS ORDERED: MIDAZOLAM 2 MG/2 ML VIAL IVP PRN (11:05)
[2017-10-05] MEDS ORDERED: LIDOCAINE/SOD BICARB 8.4% SYR ID ONE (11:05)
[2017-10-05] MEDS ORDERED: ceFAZolin(*) 2GM/D5W 50ML 50 ML IVPB ONE (11:05)
[2017-10-05] MEDS ORDERED: NORMOSOL R SOLN(*) 1000 ML BAG 1,000 ML IV PRN (11:05)
--- NOTE | 2017-10-05 11:19 | RADIOLOGY IMAGING REPORT ---
FACILITY: [facility] PATIENT NAME: Sarah Tomlinson : 1945 MR: [id number] V: [id number] EXAM DATE: ORDERING PHYSICIAN: LISA GIBSON TECHNOLOGIST: Location: [facility] Patient: Sarah Tomlinson : 1945 Visit/Account:[id number] Date of Sevice: 10/05/2017 CT abdomen pelvis without contrast HISTORY: Kidney stones TECHNIQUE: CT abdomen and pelvis without intravenous contrast. Contiguous axial images of the abdom en and pelvis was performed from the lung bases to the symphysis pubis. One of the following dose optimization techniques was utilized in the performance of this exam: Autom ated exposure control; adjustment of the mA and/or kV according to the patient's size; or use of an i terative reconstruction technique. Specific details can be referenced in the facility's radiology C T exam operational policy. CONTRAST: None. COMPARISON: 09/21/2017 FINDINGS: Visualized lung bases: Negative. Hepatobiliary: Calcification along the dome of the liver is unchanged and likely benign. Gallbladde r is absent. Spleen: Negative. Adrenals: Negative. Kidneys/: The left ureteral stent is unchanged in position but has migrated slightly distally. Th e proximal coil is in the UPJ and the distal coil is in the bladder. No evidence for hydronephrosis on the left. Fragmented stone superior pole left kidney measures 1 x 2.3 x 1 cm, unchanged. Smaller nonobstructin g stones lower pole of left kidney measure 5 and 6 mm respectively. No visualized stones in the right kidney. 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 Some inflammation around the bladder suggests cystitis. Calcifications in the uterus are noted. Pancreas: Negative. GI: Negative. Vessels/spaces/nodes: Atherosclerotic calcification is noted. Bones/soft tissues: Patient is osteopenic with degenerative changes. IMPRESSION: 1. Left ureteral stent is unchanged in position but has migrated slightly distally. Proximal coil i s in the UPJ and the distal coil is in the bladder. No evidence for left-sided hydronephrosis. 2. Fragmented stone superior pole left kidney is unchanged measures 2.3 x 1 x 1 cm. Smaller nonobst ructing stones are noted lower pole left kidney. Report Dictated By: Holden Maldonado MD at 10/05/2017 11:04 AM Report E-Signed By: Holden Maldonado MD at 10/05/2017 11:15 AM WSN:[email or web address]
[2017-10-05] MEDS ORDERED: HYDR-4309 PO (13:44)
[2017-10-05] MEDS ORDERED: OXYB10TA21 PO (13:45)
[2017-10-05] MEDS ORDERED: CEPH500T7 PO (13:48)
[2017-10-05] MEDS ORDERED: PHEN200T32 PO (13:49)
[2017-10-05] MEDS ORDERED: DOCU-416 PO (13:50)
[2017-10-05] MEDS ORDERED: OXYBUTYNIN CHL XL 5 MG TABCR PO ONE (13:57)
[2017-10-05] MEDS ORDERED: PHENAZOPYRIDINE 200 MG TAB ONE (14:46)
--- NOTE | 2017-10-05 15:01 | OPERATIVE REPORT 1 ---
EVENT DATE: October 05, 2017 SURGEON: Clarence Everett MD ANESTHESIOLOGIST: Camilo Wilkinson MD ANESTHESIA: General. PREOPERATIVE DIAGNOSIS Left renal calculi with indwelling stent. POSTOPERATIVE DIAGNOSIS Left renal calculi with indwelling stent. PROCEDURE PERFORMED 1. Cystoscopy with left double-J stent removal and exchange. 2. Left extracorporeal shockwave lithotripsy. ESTIMATED BLOOD LOSS Minimal. IV FLUIDS Crystalloids. DRAINS 6 Yemeni x 26 cm contour stent on left. COMPLICATIONS None. CONDITION The patient taken to the recovery room awake and in stable condition. STATEMENT OF MEDICAL NECESSITY The patient is a 72-year-old white female with a long history of kidney stones and infections who recently was noted to have a 3 cm partial staghorn calculus on the left upper pole, after presenting at that time with an obstructing right proximal stone. The patient was subsequently taken to the operating room on the 28 of July for right ureteroscopy followed by a left stent placement with extracorporeal shockwave lithotripsy. Follow up revealed a fairly good fragmentation of the stone with several smaller collections of the stone fragments mainly in the upper pole. She is now being brought to the operating room for planned stent exchange with follow up lithotripsy. DESCRIPTION OF PROCEDURE Patient was brought to the operating room and after general anesthetic was obtained, she was placed in the dorsal lithotomy position and prepped and draped in the usual sterile manner. Anesthetic cystoscopy was performed using the 21 Yemeni rigid sheath and 30 degree lens. The stent was seen emanating from the left ureteral orifice. It was grasped at its distal end and gently removed intact. The scope was then reintroduced and a 6-Yemeni open ended access catheter was advanced up the left ureteral orifice to the mid ureter. A 035 wire was advanced in the lumen where it was curled in the upper pole calyx by fluoroscopic imaging. The access catheter was removed. The 6-Yemeni x 26 cm stent was placed up over the wire. The wire was removed. She was noted to have good curling in the UPJ area by fluoroscopy and curling in the bladder by direct vision. The patient's bladder was drained through the cystoscopic sheath. She was then positioned supine wherein two plane fluoroscopy was used to image the left kidney. Our remaining stone fragment collection were mainly in the left upper pole. After the cross hairs were placed on the medial aspect of the remaining stones, treatment was begun at a power setting of 2 and gradually increased to a power setting of 3 over the course of the first 300 shocks. A 3 minute pause was then performed and treatment resumed. The power was gradually ramped up to a maximum power setting of 8 over the course of the 1000 shocks. She received a total of 3000 shocks to this upper pole stone collection. At the conclusion there were no further significant fragments could be identified. Intermittent two plane fluoroscopy was used to insure the cross hairs remained on the stones and stone fragment pile. At the conclusion of the case, she was awakened in the operating room and taken to the recovery area in stable condition. PLAN The plan will be to allow the patient to be discharged home today on Pyridium, Ditropan XL, Colace and [place]. Will plan to have her return to the operating room in approximately 4 weeks time for stent removal with possible ureteroscopy as indicated. KENNETH
== END 2017-10-05 14:15 | disposition home or self-care (01) ==
LOC: OR 01:28
PROVIDERS: ATTEND Urology
DX: N20.0 Calculus of kidney (principal)
CPT/HCPCS: 50590; 81001; 87088; A9270; J1100; J2001; J2405; J2704; J3010; 74176; J0690

== ENCOUNTER → 2017-10-16 | Outpatient (CLI) | payer MEDICARE ==
[~2017-10-16] MED LIST changes: +CEPH500T7 PO
== END ==
LOC: LAB 16:07
PROVIDERS: ATTEND Urology
DX: N20.0 Calculus of kidney (principal); N39.0 Urinary tract infection, site not specified
CPT/HCPCS: 87077; 87088; 87186

== ENCOUNTER → 2017-10-16 | Outpatient (REF) | payer MEDICARE ==
[~2017-10-16] MED LIST changes: +TRI100 FT
== END ==
LOC: ZZSENDIN 17:10
PROVIDERS: ATTEND Urology
DX: Z02.9 Encounter for administrative examinations, unspecified (principal)

== ENCOUNTER 2017-10-20 09:42 | Emergency (ER) | payer MEDICARE ==
[~2017-10-20 09:42] MED LIST changes: -TRI100 FT
--- NOTE | 2017-10-20 09:49 | ER Report ---
History and Physical Time Seen By MD: 09:49 HPI/ROS CHIEF COMPLAINT: Bilateral flank pain, suprapubic pain HISTORY OF PRESENT ILLNESS: Patient is a 72-year-old female here with complaints of bilateral flank pain, suprapubic pain on current treatment for urinary tract infection with Bactrim and previously treated with another antibiotic that the patient is unable to recall. Patient reports having prior history of nephrolithiasis requiring lithotripsy and stents with a current stent in the left ureter. Patient is afebrile, hemodynamically stable. Patient denies chest pain, shortness of breath, headache, blurred vision, blood in the stools. REVIEW OF SYSTEMS: Constitutional: No fever, no chills. Eyes: No discharge. ENT: No sore throat. Cardiovascular: No chest pain, no palpitations. Respiratory: No cough, no shortness of breath. Gastrointestinal: suprapubic abdominal pain, no vomiting. Genitourinary: No hematuria. Musculoskeletal: + b/l flank pain Skin: No rashes. Neurological: No headache. Allergies: Coded Allergies: Sulfa (Sulfonamide Antibiotics) (Verified Allergy, Unknown, HIVES, 10/20/17) Home Meds Active Scripts Promethazine Hcl (PROMETHAZINE HCL) 25 Mg Tablet, 25 MG PO Q8H PRN for NAUSEA/VOMITING, #20 TAB 0 Refills Prov:LOIS VILLANUEVA MD 09/11/17 Nifedipine (PROCARDIA XL) 30 Mg Tab.er.24, 30 MG PO QDAY, #30 TAB Prov:MANAV ARVIZU DO 07/26/17 Reported Medications Trimethoprim (TRIMETHOPRIM) 100 Mg Tab, 100 MG FT, TAB 10/20/17 Docusate Sodium (COLACE) 100 Mg Capsule, 100 MG PO BID for STOOL SOFTENER, #30 CAPSULE 10/05/17 Phenazopyridine Hcl (PHENAZOPYRIDINE HCL) 200 Mg Tablet, 200 MG PO TID PRN for BURNING WITH URINATION, TAB 10/05/17 Oxybutynin Chloride (DITROPAN XL) 10 Mg Tab.er.24, 10 MG PO QDAY PRN for URGENCY, #20 TAB 10/05/17 Hydrocodone Bit/Acetaminophen (NORCO 5-325 TABLET) 1 Each Tablet, 1 EACH PO Q6H PRN for PAIN, #40 TAB 10/05/17 Chlorpheniramine/Dextromethorp (Eql Cough-Cold Relief Hbp Tab) 4 Mg-30 Mg Tablet, 1 TAB PO PRN PRN for CONGESTION 09/29/17 Docusate Sodium (COLACE) 100 Mg Capsule, 100 MG PO PRN, #30 CAPSULE 08/27/17 Metoprolol Tartrate (Metoprolol Tartrate) 100 Mg Tablet, 100 MG PO BID, #60 0 Refills 06/26/10 Discontinued Reported Medications Cephalexin 500 Mg Tab (KEFLEX 500 MG TAB) 500 Mg Tablet, 500 MG PO TID for A NTIBIOTIC, #9 TAB 10/05/17 Nitrofurantoin Monohyd/M-Cryst (NITROFURANTOIN MONO-MCR 100 MG) 100 Mg Capsule, 100 MG PO DAILY for 9 Days, CAPSULE 09/29/17 Hx Smoking: No Smoking Status: Never Smoker Hx Substance Use Disorder: No Hx Alcohol Use: No Constitutional Vital Sign - Last 24 Hours 10/20/17 10/20/17 10/20/17 10/20/17 09:42 09:51 09:52 09:57 Temp 98.3 Pulse ??? 72 68 Resp 20 B/P (MAP) 155/98 155/98 (117) Pulse Ox 96 O2 Delivery Room Air 10/20/17 10/20/17 10/20/17 10/20/17 10:00 10:12 10:27 10:30 Pulse 64 58 B/P (MAP) 166/112 (130) 152/90 (110) Pulse Ox 95 93 10/20/17 10/20/17 10/20/17 10/20/17 10:50 11:00 11:05 11:20 Pulse ??? 60 63 B/P (MAP) 127/112 (117) Pulse Ox 95 96 10/20/17 10/20/17 10/20/17 10/20/17 11:30 11:35 11:50 12:00 Pulse 50 63 B/P (MAP) 144/87 (106) 163/90 (114) Pulse Ox 95 94 10/20/17 10/20/17 12:05 12:20 Pulse 62 66 Pulse Ox 94 94 Physical Exam General Appearance: The patient is alert, has no immediate need for airway protection and no signs of toxicity. No acute distress Eyes: Pupils equal and round no pallor or injection. ENT, Mouth: Mucous membranes are moist. Respiratory: There are no retractions, lungs are clear to auscultation. Cardiovascular: Regular rate and rhythm. Gastrointestinal: + mild suprapubic tenderness, no masses, bowel sounds normal. Neurological: No focal deficits Skin: Warm and dry, no rashes. Musculoskeletal: Neck is supple non tender, + b/l mild flank pain. Extremities are nontender, nonswollen and have full range of motion. DIFFERENTIAL DIAGNOSIS: After history and physical exam differential diagnosis was considered for abdominal pain including but not limited to appendicitis, cholecystitis, gastritis and urinary tract infection. Medical Decision Making Data Points Result Diagram: 10/20/17 1008 10/20/17 1008 Laboratory Hematology Test 10/20/17 10:08 10/20/17 10:15 Red Blood Count 4.67 M/uL (4.17-5.56) Mean Corpuscular Volume 89.8 fL (80.0-96.0) Mean Corpuscular Hemoglobin 30.2 pg (26.0-33.0) Mean Corpuscular Hemoglobin Concent 33.7 g/dL (32.0-36.0) Red Cell Distribution Width 16.1 % (11.5-14.5) Mean Platelet Volume 8.8 fL (7.2-11.1) Neutrophils (%) (Auto) 75.2 % (39.4-72.5) Lymphocytes (%) (Auto) 14.8 % (17.6-49.6) Monocytes (%) (Auto) 7.3 % (4.1-12.4) Eosinophils (%) (Auto) 1.9 % (0.4-6.7) Basophils (%) (Auto) 0.8 % (0.3-1.4) Nucleated RBC Relative Count (auto) 0.1 /100WBC Neutrophils # (Auto) 3.9 K/uL (2.0-7.4) Lymphocytes # (Auto) 0.8 K/uL (1.3-3.6) Monocytes # (Auto) 0.4 K/uL (0.3-1.0) Eosinophils # (Auto) 0.1 K/uL (0.0-0.5) Basophils # (Auto) 0.0 K/uL (0.0-0.1) Nucleated RBC Absolute Count (auto) 0.00 K/uL Sodium Level 140 mmol/L (137-145) Potassium Level 4.0 mmol/L (3.5-5.0) Chloride Level 108 mmol/L (98-107) Carbon Dioxide Level 18 mmol/L (22-31) Blood Urea Nitrogen 19 mg/dl (7-18) Creatinine 1.30 mg/dl (0.52-1.04) Glomerular Filtration Rate Calc 40.4 Random Glucose 129 mg/dl (75-110) Calcium Level 10.0 mg/dl (8.4-10.2) Total Bilirubin 0.8 mg/dl (0.2-1.3) Aspartate Amino Transf (AST/SGOT) 49 U/L (0-35) Alanine Aminotransferase (ALT/SGPT) 49 U/L (0-56) Alkaline Phosphatase 89 U/L (0-126) Total Protein 7.6 g/dl (6.3-8.2) Albumin 4.1 g/dl (3.5-5.0) Lipase 103 U/L (23-300) Urine Color Nina Urine Clarity Clear Urine pH 7.0 pH (4.8-9.5) Urine Specific [place] 1.010 Urine Protein Negative mg/dL (NEGATIVE) Urine Glucose (UA) Negative mg/dL (NEGATIVE) Urine Ketones Negative mg/dL (NEGATIVE) Urine Blood Moderate (NEGATIVE) Urine Nitrite Positive (NEGATIVE) Urine Bilirubin Negative (NEGATIVE) Urine Urobilinogen 4.0 mg/dL (0.2-1.9) Urine Leukocyte Esterase Moderate (NEGATIVE) Urine RBC 48 /HPF (0-2/HPF) Urine WBC 44 /HPF (0-5/HPF) Urine Squamous Epithelial Cells Many /LPF (NONE-FEW) Urine Transitional Epithelial Cells Few /LPF (NONE-FEW) Urine Bacteria Few /HPF (NONE-FEW) Urine Mucus Few /HPF (NONE-FEW) Chemistry Test 10/20/17 10:08 10/20/17 10:15 White Blood Count 5.1 k/uL (4.5-11.0) Red Blood Count 4.67 M/uL (4.17-5.56) Hemoglobin 14.1 g/dL (12.0-16.0) Hematocrit 42.0 % (34.0-47.0) Mean Corpuscular Volume 89.8 fL (80.0-96.0) Mean Corpuscular Hemoglobin 30.2 pg (26.0-33.0) Mean Corpuscular Hemoglobin Concent 33.7 g/dL (32.0-36.0) Red Cell Distribution Width 16.1 % (11.5-14.5) Platelet Count 200 K/uL (150-450) Mean Platelet Volume 8.8 fL (7.2-11.1) Neutrophils (%) (Auto) 75.2 % (39.4-72.5) Lymphocytes (%) (Auto) 14.8 % (17.6-49.6) Monocytes (%) (Auto) 7.3 % (4.1-12.4) Eosinophils (%) (Auto) 1.9 % (0.4-6.7) Basophils (%) (Auto) 0.8 % (0.3-1.4) Nucleated RBC Relative Count (auto) 0.1 /100WBC Neutrophils # (Auto) 3.9 K/uL (2.0-7.4) Lymphocytes # (Auto) 0.8 K/uL (1.3-3.6) Monocytes # (Auto) 0.4 K/uL (0.3-1.0) Eosinophils # (Auto) 0.1 K/uL (0.0-0.5) Basophils # (Auto) 0.0 K/uL (0.0-0.1) Nucleated RBC Absolute Count (auto) 0.00 K/uL Glomerular Filtration Rate Calc 40.4 Calcium Level 10.0 mg/dl (8.4-10.2) Total Bilirubin 0.8 mg/dl (0.2-1.3) Aspartate Amino Transf (AST/SGOT) 49 U/L (0-35) Alanine Aminotransferase (ALT/SGPT) 49 U/L (0-56) Alkaline Phosphatase 89 U/L (0-126) Total Protein 7.6 g/dl (6.3-8.2) Albumin 4.1 g/dl (3.5-5.0) Lipase 103 U/L (23-300) Urine Color Nina Urine Clarity Clear Urine pH 7.0 pH (4.8-9.5) Urine Specific [place] 1.010 Urine Protein Negative mg/dL (NEGATIVE) Urine Glucose (UA) Negative mg/dL (NEGATIVE) Urine Ketones Negative mg/dL (NEGATIVE) Urine Blood Moderate (NEGATIVE) Urine Nitrite Positive (NEGATIVE) Urine Bilirubin Negative (NEGATIVE) Urine Urobilinogen 4.0 mg/dL (0.2-1.9) Urine Leukocyte Esterase Moderate (NEGATIVE) Urine RBC 48 /HPF (0-2/HPF) Urine WBC 44 /HPF (0-5/HPF) Urine Squamous Epithelial Cells Many /LPF (NONE-FEW) Urine Transitional Epithelial Cells Few /LPF (NONE-FEW) Urine Bacteria Few /HPF (NONE-FEW) Urine Mucus Few /HPF (NONE-FEW) Urinalysis Test 10/20/17 10:15 Urine Color Nina Urine Clarity Clear Urine pH 7.0 pH (4.8-9.5) Urine Specific [place] 1.010 Urine Protein Negative mg/dL (NEGATIVE) Urine Glucose (UA) Negative mg/dL (NEGATIVE) Urine Ketones Negative mg/dL (NEGATIVE) Urine Blood Moderate (NEGATIVE) Urine Nitrite Positive (NEGATIVE) Urine Bilirubin Negative (NEGATIVE) Urine Urobilinogen 4.0 mg/dL (0.2-1.9) Urine Leukocyte Esterase Moderate (NEGATIVE) Urine RBC 48 /HPF (0-2/HPF) Urine WBC 44 /HPF (0-5/HPF) Urine Squamous Epithelial Cells Many /LPF (NONE-FEW) Urine Transitional Epithelial Cells Few /LPF (NONE-FEW) Urine Bacteria Few /HPF (NONE-FEW) Urine Mucus Few /HPF (NONE-FEW) EKG/Imaging Imaging ABDOMEN/PELVIS W/O CONTRAST HISTORY: Flank pain and bilateral suprapubic pain. TECHNIQUE: CT abdomen and pelvis without intravenous contrast. One of the following dose optimization techniques was utilized in the performance of this exam: Automated exposure control; adjustment of the mA and/or kV according to the patient's size; or use of an iterative reconstruction technique. Specific details can be referenced in the facility's radiology CT exam operational policy. CONTRAST: None. Please note, lack of IV contrast limits evaluation of solid organs. COMPARISON: CT dated October 05, 2017 FINDINGS: Visualized lung bases: 2 mm nodule within the right lower lobe, not significantly changed since 2010 and benign given chronicity. Hepatobiliary: Liver is enlarged measuring 18.3 cm at the midclavicular line. At least mild hepatic steatosis. Otherwise negative. Benign-appearing dystrophic calcifications along the periphery of the right hepatic lobe. Gallbladder surgically absent. Spleen: Negative. Adrenals: Mild benign-appearing adrenal thickening. Pancreas: Mild/moderate pancreatic atrophy. Kidneys/: Double-J left nephroureteral stent on the left which is in satisfactory position. Decrease in stone burden within the left kidney. Persis tent heterogeneous nonobstructing calculi on the left. Subcentimeter hypodensity within the left kidney which is too small to characterize however statistically represents a simple cyst. No right-sided nephrolithiasis. No hydronephrosis. Subtle heterogeneous calcification within the uterus, likely related to an underlying small uterine fibroid. GI: Mild descending and sigmoid colon diverticulosis without evidence for diverticulitis. Vessels/spaces/nodes: Negative. Bones/soft tissues: Small fat-containing umbilical hernia which also contains a dystrophic calcification. Degenerative changes within the lumbar spine. IMPRESSION: 1. No acute findings. 2. Interval placement of a double-J left nephroureteral stent with decreased nonobstructing stone burden and the left kidney. No hydronephrosis. 3. Additional incidental/chronic findings, as above. ED Course/Re-evaluation ED Course Patient is a 72-year-old female here with complaints of bilateral flank pain, suprapubic pain with history significant for nephrolithiasis and previous stent placement currently on treatment for urinary tract infection which was switched to trimethoprim. Patient complains of general malaise, nausea and weakness and dehydration. Labs were remarkable for CKG which was stable compared to prior lab findings. Urinalysis showed positive nitrates and positive leuk esterase. Patient was treated with ceftriaxone for urinary tract symptoms and urinalysis findings. CT imaging showed no acute findings. Patient was also given fluid bolus of normal saline for clinical findings of mild dehydration. I updated the patient regarding these findings and advised her to follow-up with her PCP in the next several days. Patient reports that she has an appointment tomorrow. Patient was stable at time of discharge. Decision to Disposition Date: Oct 20, 2017 Decision to Disposition Time: 12:19 Depart Departure Latest Vital Signs Vital Signs Date Time Temp Pulse Resp B/P (MAP) Pulse Ox O2 Delivery O2 Flow Rate FiO2 10/20/17 12:20 66 94 10/20/17 12:00 163/90 (114) 10/20/17 09:51 98.3 20 Room Air Impression: Primary Impression: Urinary tract infection Condition: Improved Disposition: HOME OR SELF-CARE Referrals: EBER GONCALVES DO (PCP) Patient Instructions: Sepsis (GEN), Urinary Tract Infection in Women (ED) Additional Instructions: Please follow-up with her family doctor in the next day. Please return promptly if you develop fevers, chills, weakness, decreased oral intake, difficulty urinating. You received ceftriaxone today for treatment of urinary tract in fection, continue to take her trimethoprim as prescribed by your doctor NEETA GRAY DO Oct 20, 2017 09:49
[2017-10-20] MEDS ORDERED: NS(*) 0.9% 1000 ML BAG 1,000 ML IV ONE (10:03)
[2017-10-20] MEDS ORDERED: TRI100 FT (10:03)
[2017-10-20 10:25] LABS: PLATELET COUNT, AUTOMATED 200 K/uL (150-450)
--- NOTE | 2017-10-20 11:20 | RADIOLOGY IMAGING REPORT ---
[place] [facility] [place]: Sarah Tomlinson : 1945 MR: [id number] V: [id number] EXAM DATE: ORDERING PHYSICIAN: NEETA GRAY TECHNOLOGIST: Location: [facility] - [place] Patient: Sarah Tomlinson : 1945 Visit/Account:[id number] Date of Sevice: 10/20/2017 ABDOMEN/PELVIS W/O CONTRAST HISTORY: Flank pain and bilateral suprapubic pain. TECHNIQUE: CT abdomen and pelvis without intravenous contrast. One of the following dose optimization techniques was utilized in the performance of this exam: Autom ated exposure control; adjustment of the mA and/or kV according to the patient's size; or use of an i terative reconstruction technique. Specific details can be referenced in the facility's radiology C T exam operational policy. CONTRAST: None. Please note, lack of IV contrast limits evaluation of solid organs. COMPARISON: CT dated October 05, 2017 FINDINGS: Visualized lung bases: 2 mm nodule within the right lower lobe, not significantly changed since 2010 and benign given chronicity. Hepatobiliary: Liver is enlarged measuring 18.3 cm at the midclavicular line. At least mild hepatic steatosis. Otherwise negative. Benign-appearing dystrophic calcifications along the periphery of t he right hepatic lobe. Gallbladder surgically absent. Spleen: Negative. Adrenals: Mild benign-appearing adrenal thickening. Pancreas: Mild/moderate pancreatic atrophy. Kidneys/: Double-J left nephroureteral stent on the left which is in satisfactory position. Decre ase in stone burden within the left kidney. Persistent heterogeneous nonobstructing calculi on the l eft. Subcentimeter hypodensity within the left kidney which is too small to characterize however sta tistically represents a simple cyst. No right-sided nephrolithiasis. No hydronephrosis. Subtle het erogeneous calcification within the uterus, likely related to an underlying small uterine fibroid. GI: Mild descending and sigmoid colon diverticulosis without evidence for diverticulitis. Vessels/spaces/nodes: Negative. Bones/soft tissues: Small fat-containing umbilical hernia which also contains a dystrophic calcifica tion. Degenerative changes within the lumbar spine. IMPRESSION: 1. No acute findings. 2. Interval placement of a double-J left nephroureteral stent with decreased nonobstructing stone bu rden and the left kidney. No hydronephrosis. 3. Additional incidental/chronic findings, as above. Report Dictated By: Poncho Workman MD at 10/20/2017 11:09 AM Report E-Signed By: Poncho Workman MD at 10/20/2017 11:16 AM WSN:[id number]
[2017-10-20] MEDS ORDERED: cefTRIAXone 1 GM VIAL IVP ONE (11:40)
[2017-10-20 12:00] VITALS: BP 163/90
== END 2017-10-20 12:50 | disposition home or self-care (01) ==
LOC: ER 09:52
DX: N39.0 Urinary tract infection, site not specified (principal); E86.0 Dehydration
CPT/HCPCS: 74176; 81001; 83690; 85025; 87088; 96361; 96374; 96375; 99284; A4353; J0696; J7030; 82040; 82247; 82310; 82374; 82435; 82565; 82947; 84075; 84132; 84155; 84295; 84450; 84460; 84520

== ENCOUNTER 2017-11-26 00:18 | Day surgery (SDC) | payer MEDICARE ==
[~2017-11-26] VITALS: Ht 163.8 cm; Wt 134.0 kg
[~2017-11-26 00:18] MED LIST changes: -HYDR-4309 PO; +HYDR-653 PO; +SOLI10TA8 PO; +TRI100 FT
[2017-11-26] MEDS ORDERED: LIDOCAINE MPF 1% 5 ML VIAL ONE (09:08)
[2017-11-26] MEDS ORDERED: DEXAMETHASONE SOD 4 MG/ML VIAL ONE (09:08)
[2017-11-26] MEDS ORDERED: fentaNYL CITR 100 MCG/2 ML AMP ONE ×3 (09:08→14:17)
[2017-11-26] MEDS ORDERED: ONDANSETRON 4 MG/2 ML VIAL ONE (09:08)
[2017-11-26] MEDS ORDERED: PROPOFOL EMUL(*) 10MG/ML 20 ML 20 ML ONE (09:08)
[2017-11-26 09:23] VITALS: BP 148/73
[2017-11-26] MEDS ORDERED: HYDR-4228 PO (09:26)
[2017-11-26] MEDS ORDERED: cefTRIAXone(*) 2 GM VIAL 2 GM in NS(*) 0.9% 100 ML ADDVANT BAG 100 ML IVPB ONE (10:00)
[2017-11-26] MEDS ORDERED: FAMOTIDINE 20 MG TAB PO ONE (10:00)
[2017-11-26] MEDS ORDERED: LIDOCAINE/SOD BICARB 8.4% SYR ID ONE (10:00)
[2017-11-26] MEDS ORDERED: NORMOSOL R SOLN(*) 1000 ML BAG 1,000 ML IV PRN (10:00)
[2017-11-26] MEDS ORDERED: MIDAZOLAM 2 MG/2 ML VIAL IVP PRN (10:00)
[2017-11-26] MEDS ORDERED: GENTAMICIN(*) 80 MG/2 ML VIAL 160 MG in NS(*) 0.9% 100 ML BAG 100 ML IVPB ONE (10:00)
--- NOTE | 2017-11-26 10:40 | RADIOLOGY IMAGING REPORT ---
FACILITY: [facility] - [place] PATIENT NAME: Sarah Tomlinson : 1945 MR: [id number] V: [id number] EXAM DATE: ORDERING PHYSICIAN: GENA WADE TECHNOLOGIST: Location: [facility] - [place] Patient: Sarah Tomlinson : 1945 Visit/Account:[id number] Date of Sevice: 11/23/2017 Exam type: KUB SINGLE VIEW ABDOMEN History: Left-sided stent, pain, preop Comparison: KUB September 11, 2017. Findings: Is a left ureteral stent in place. No calcifications identified along the course of the stent. Ther e is a small tiny calcification projecting over the left upper quadrant of the abdomen could be withi n the left kidney or related to an overlapping intradermal calcification or bowel contents. Surgical clips identified in the right upper quadrant. There are spondylotic changes of the lumbar spine IMPRESSION: 1. Left ureteral stent is again noted Tiny calcification over the left upper quadrant could be within the left kidney versus an overlapping shadow Report Dictated By: Avis Boothe MD at 11/26/2017 10:35 AM Report E-Signed By: Avis Boothe MD at 11/26/2017 10:36 AM WSN:[id number]
[2017-11-26] MEDS ORDERED: IOPAMIDOL-200 50 ML VIAL IS ONE ×2 (11:33→12:39)
[2017-11-26] MEDS ORDERED: KETAMINE HCL 200 MG/20 ML MDV ONE (11:49)
[2017-11-26] MEDS ORDERED: CIPR-214 PO (13:45)
[2017-11-26] MEDS ORDERED: FAMO-67 PO (13:45)
[2017-11-26] MEDS ORDERED: IBUP800T37 PO (13:46)
[2017-11-26] MEDS ORDERED: HYDR-654 PO (13:47)
[2017-11-26] MEDS ORDERED: APAP/HYDROCODONE 325/5 TAB ONE (14:43)
[2017-11-26 14:45] VITALS: BP 153/86
[2017-11-26 15:30] VITALS: BP 161/95
[2017-11-26 15:45] VITALS: BP 152/93
--- NOTE | 2017-11-26 16:17 | OPERATIVE REPORT 1 ---
EVENT DATE: November 26, 2017 SURGEON: Ramirez Noguera MD ANESTHESIOLOGIST: Camilo Wilkinson MD ANESTHESIA: General anesthetic. PREOPERATIVE DIAGNOSES 1. Left renal lithiasis. 2. Chronic left indwelling ureteral stent. POSTOPERATIVE DIAGNOSES 1. Left renal lithiasis. 2. Chronic left indwelling ureteral stent. PROCEDURES PERFORMED 1. Cystourethroscopy. 2. Removal of indwelling left ureteral stent. 3. Placement of external stent and subsequent removal. 4. Left extracorporeal shock wave lithotripsy of two stone foci. DESCRIPTION OF PROCEDURE Under general anesthetic, the patient was prepped and draped in a standard lithotomy position. The 21 panendoscope admitted through the urethra into the bladder. Urine was obtained for culture and sensitivity. The left indwelling stent was visualized and removed. The external stent 6 whistle tip was passed up the left collecting system and secured to a catheter and contrast medium. After localization, the multiple stones in the upper pole area of the left kidney were treated with a total of 2500 shocks progressing from low to high kV fairly rapidly. The patient was repositioned for extracorporeal shock wave lithotripsy of the calculi located in the inferior pole of the left kidney. The inferior pole stone was treated with a total of 500 shocks progressing from low to high kV fairly rapidly. At the conclusion of the procedure, the external stent and St[place] were removed. Patient tolerated the procedure satisfactorily and returned to the recovery room in satisfactory condition. This is a 72-year-old white female with left renal lithiasis. She reportedly has had a large left staghorn calculus treated previously by Dr. Everett with multiple treatments. His treatment shows significant resolution. As previously alluded, her staghorn calculus/infected stone appeared to be significantly resolved, but still had significant residual lithiasis as well. The patient was adamant about treatment and stent removal. I advised patient as to possible problems with Steinstrasse and obstructive uropathy. She seemed to understand and is willing to take the risk. The patient had been covered with two antibiotics intraoperatively and will be discharged home on antibiotic therapy, Cipro. Current urine culture is pending. Plan followup in the office this coming Thursday, the November. She is to call for an appointment. Activities are as tolerated. She is to continue to use the medications. A copy of instructions was given to the patient. She is to strain all her urine. She was sent home with strainers. Patient to percuss her left kidney frequently to facilitate passage of stone particles. Copy of instructions for renal percussion was also given to the patient. Patient will be discharged home on Cipro, Motrin, Pepcid, and [place] therapy, in addition to her usual medications. MTDD
== END 2017-11-26 14:45 | disposition home or self-care (01) ==
LOC: OR 00:18
DX: N20.0 Calculus of kidney (principal)
CPT/HCPCS: 50590; 74018; 81001; 87088; A4338; A9270; C1758; J0696; J1100; J2001; J2405; J2704; J3010; J3490; J7050; Q9966

== ENCOUNTER 2017-12-04 11:11 | Emergency (ER) | payer MEDICARE ==
[~2017-12-04 11:11] MED LIST changes: +CIPR-214 PO; +FAMO-67 PO; +HYDR-4228 PO; +HYDR-654 PO; +IBUP800T37 PO
--- NOTE | 2017-12-04 11:22 | ER Report ---
History and Physical Time Seen By MD: 11:22 Hx. of Stated Complaint: PATIENT REPORTS THAT HER HEAD AND NODES FEEL SWOLLEN HPI/ROS CHIEF COMPLAINT: Enlarged lymph nodes, pain and swelling to the scalp HISTORY OF PRESENT ILLNESS: 72-year-old female patient presents to emergency room with complaint of enlarged lymph nodes, pain and swelling to the scalp. Patient states this started approximately [place] last week. She states that it is continued. She states that she felt like she had scabs on her scalp. She states they're very tender, she states she has a hard time sleeping. She denies any fevers, chills, nausea, vomiting or diarrhea. Patient states she is not taking any medication for this. Patient states she had enlarged lymph nodes behind her ear. She states that she does have rashes developed on her chin and her neck. REVIEW OF SYSTEMS: Respiratory: No cough, no dyspnea. Cardiovascular: No chest pain, no palpitations. Gastrointestinal: No vomiting, no abdominal pain. Musculoskeletal: No back pain. Allergies: Coded Allergies: latex (Verified Allergy, Severe, RASH, 11/23/17) PEELS SKIN OFF Sulfa (Sulfonamide Antibiotics) (Verified Allergy, Unknown, HIVES, 10/20/17) Home Meds Active Scripts Hydrocodone Bit/Acetaminophen (HYDROCODON-ACETAMINOPHEN 5-325) 1 Each Tablet, 1 EACH PO Q4-6H PRN for PAIN, #12 TAB Prov:RHIANNA LARKIN NURSE NAVIGATOR 12/04/17 Valacyclovir Hcl (VALTREX) 1,000 Mg Tablet, 1000 MG PO TID, #20 TAB Prov:RHIANNA LARKIN 12/04/17 Promethazine Hcl (PROMETHAZINE HCL) 25 Mg Tablet, 25 MG PO Q8H PRN for NAUSEA/VOMITING, #20 TAB 0 Refills Prov:LOIS VILLANUEVA MD 09/11/17 Nifedipine (PROCARDIA XL) 30 Mg Tab.er.24, 30 MG PO QDAY, #30 TAB Prov:MANAV ARVIZU DO 07/26/17 Reported Medications Hydrocodone Bit/Acetaminophen (NORCO 7.5-325 TABLET) 1 Each Tablet, 1 EACH PO Q4-6H PRN for PAIN, #30 11/26/17 Ibuprofen (IBUPROFEN) 800 Mg Tablet, 1 TAB PO TID PRN for PAIN, #50 TAB 11/26/17 Famotidine (FAMOTIDINE) 20 Mg Tablet, 20 MG PO BID, #20 TAB 11/26/17 Ciprofloxacin Hcl (CIPROFLOXACIN HCL) 500 Mg Tablet, 500 MG PO Q12H for 10 Days, #20 TAB 11/26/17 Hydroxyzine Hcl (HYDROXYZINE HCL) 50 Mg Tablet, 50 MG PO TID PRN for ANXIETY 11/26/17 Solifenacin Succinate (VESICARE) 10 Mg Tablet, 10 MG PO QDAY 11/23/17 Phenazopyridine Hcl (PHENAZOPYRIDINE HCL) 200 Mg Tablet, 200 MG PO TID PRN for BURNING WITH URINATION, TAB 10/05/17 Chlorpheniramine/Dextromethorp (Eql Cough-Cold Relief Hbp Tab) 4 Mg-30 Mg Tablet, 1 TAB PO PRN PRN for CONGESTION 09/29/17 Docusate Sodium (COLACE) 100 Mg Capsule, 100 MG PO PRN, #30 CAPSULE 08/27/17 Metoprolol Tartrate (Metoprolol Tartrate) 100 Mg Tablet, 100 MG PO BID, #60 0 Refills 06/26/10 Past Medical/Surgical History Patient has a past medical history of hypertension, oxygen at night, cholecystitis, urinary incontinence, frequent UTI, arthritis, degenerative disc disease, sensitive skin, anxiety. Patient has surgical history of cholecystectomy, ESWL, cystoscopy right stent placement. Reviewed Nurses Notes: Yes Hx Smoking: No Smoking Status: Never Smoker Hx Substance Use Disorder: No Hx Alcohol Use: No Constitutional Vital Sign - Last 24 Hours 12/04/17 12/04/17 11:17 11:56 Temp 98.0 Pulse 56 Resp 20 B/P (MAP) 160/104 (122) Pulse Ox 93 O2 Delivery Room Air Physical Exam General Appearance: The patient is alert, has no immediate need for airway protection and no current signs of toxicity. Respiratory: Chest is non tender, lungs are clear to auscultation. Cardiac: regular rate and rhythm Gastrointestinal: Abdomen is soft and non tender, no masses, bowel sounds normal. Musculoskeletal: Neck: Neck is supple and non tender. Extremities have full range of motion and are non tender. Skin: No rashes or lesions. Patient has no lesions on erythematous base, most definitively seen on the chin, redness on the neck, red areas noted on the left side of the scalp. DIFFERENTIAL DIAGNOSIS: After history and physical exam differential diagnosis was considered for contact dermatitis, shingles, folliculitis. Medical Decision Making ED Course/Re-evaluation ED Course Patient was admitted to an exam room, history and physical were obtained. Differential diagnoses were considered. On examination lungs are clear, heart is regular, abdomen soft nontender. Patient does have red areas on her scalp on the left side of the scalp, she has yellow lesions on an erythematous base on her chin and neck. I believe that this is more consistent with a shingles eruption. Patient states she has been under significant amount of stress secondary to her hospitalization and surgery. I believe that that is underlying cause of her symptoms. We will go ahead and treat her with Valtrex 1 g 3 times a day for 7 days. We'll also refill her hydrocodone. She is to follow-up with her primary care provider in the next week. Patient verbalized understanding and agreement with plan. Decision to Disposition Date: Dec 04, 2017 Decision to Disposition Time: 11:41 Depart Departure Latest Vital Signs Vital Signs Date Time Temp Pulse Resp B/P (MAP) Pulse Ox O2 Delivery O2 Flow Rate FiO2 12/04/17 11:56 160/104 (122) 12/04/17 11:17 98.0 56 20 93 Room Air Impression: Primary Impression: Herpes zoster Condition: Improved Disposition: HOME OR SELF-CARE Referrals: EBER GONCALVES DO (PCP) New Scripts Hydrocodone Bit/Acetaminophen (HYDROCODON-ACETAMINOPHEN 5-325) 1 Each Tablet 1 EACH PO Q4-6H PRN for PAIN, #12 TAB Prov: RHIANNA LARKIN 12/04/17 Valacyclovir Hcl (VALTREX) 1,000 Mg Tablet 1000 MG PO TID, #20 TAB Prov: RHIANNA LARKIN 12/04/17 Patient Instructions: Shingles (ED) Additional Instructions: Get plenty of rest. Limit activity by pain. Take the medication as prescribed. Follow up with your primary care provider next week. Return to the ER if condition worsens. Problem Qualifiers Primary Impression: Herpes zoster Herpes zoster complications: without complications Qualified Codes: B02.9 - Zoster without complications RHIANNA LARKIN Dec 04, 2017 11:22
[2017-12-04] MEDS ORDERED: VALA100062 PO (11:40)
[2017-12-04] MEDS ORDERED: HYDR-385 PO (11:40)
[2017-12-04] MEDS ORDERED: valACYclovir HCL 500 MG TAB PO ONE (11:45)
[2017-12-04 11:56] VITALS: BP 160/104
== END 2017-12-04 11:56 | disposition home or self-care (01) ==
LOC: ER 11:24
DX: B02.9 Zoster without complications (principal)
CPT/HCPCS: 99283; A9270

== ENCOUNTER 2017-12-05 16:33 | Inpatient (IN) | payer MEDICARE ==
[~2017-12-05] VITALS: Ht 162.6 cm; Wt 133.1 kg
[~2017-12-05 16:33] MED LIST changes: +VALA100062 PO
--- NOTE | 2017-12-05 16:45 | ER Report ---
History and Physical Time Seen By MD: 16:45 Hx. of Stated Complaint: REPORTS SHE IS UNABLE TO CARE FOR SELF AT HOME. HPI/ROS CHIEF COMPLAINT: Unable to care for self at home HISTORY OF PRESENT ILLNESS: 72-year-old female patient presents to emergency room with complaint of a pineal care for herself at home. Patient states that she lives at home and is unable to get up off the couch, she also states that she is not able to get up and walk at home. Patient states that she's not had any nausea, vomiting. She states that she has not taken any medication for this. She states that she needs to be taken care of. Her granddaughter states that patient has been mildly confused today. She states that she is not been able to take care of her general duties. She states she feels better that she is able to be more stable, but she is concerned that she is more ill. REVIEW OF SYSTEMS: Respiratory: No cough, no dyspnea. Cardiovascular: No chest pain, no palpitations. Gastrointestinal: No vomiting, no abdominal pain. Musculoskeletal: No back pain. Allergies: Coded Allergies: latex (Verified Allergy, Severe, RASH, 11/23/17) PEELS SKIN OFF Sulfa (Sulfonamide Antibiotics) (Verified Allergy, Unknown, HIVES, 10/20/17) Home Meds Active Scripts Valacyclovir Hcl (VALTREX) 1,000 Mg Tablet, 1000 MG PO TID, #20 TAB Prov:RHIANNA LARKIN 12/04/17 Promethazine Hcl (PROMETHAZINE HCL) 25 Mg Tablet, 25 MG PO Q8H PRN for NAUSEA/VOMITING, #20 TAB 0 Refills Prov:LOIS VILLANUEVA MD 09/11/17 Nifedipine (PROCARDIA XL) 30 Mg Tab.er.24, 30 MG PO QDAY, #30 TAB Prov:MANAV ARVIZU DO 07/26/17 Reported Medications Hydrocodone Bit/Acetaminophen (NORCO 7.5-325 TABLET) 1 Each Tablet, 1 EACH PO Q4-6H PRN for PAIN, #30 11/26/17 Ibuprofen (IBUPROFEN) 800 Mg Tablet, 1 TAB PO TID PRN for PAIN, #50 TAB 11/26/17 Famotidine (FAMOTIDINE) 20 Mg Tablet, 20 MG PO BID, #20 TAB 11/26/17 Ciprofloxacin Hcl (CIPROFLOXACIN HCL) 500 Mg Tablet, 500 MG PO Q12H for 10 Days, #20 TAB 11/26/17 Hydroxyzine Hcl (HYDROXYZINE HCL) 50 Mg Tablet, 50 MG PO TID PRN for ANXIETY 11/26/17 Solifenacin Succinate (VESICARE) 10 Mg Tablet, 10 MG PO QDAY 11/23/17 Phenazopyridine Hcl (PHENAZOPYRIDINE HCL) 200 Mg Tablet, 200 MG PO TID PRN for BURNING WITH URINATION, TAB 10/05/17 Chlorpheniramine/Dextromethorp (Eql Cough-Cold Relief Hbp Tab) 4 Mg-30 Mg Tablet, 1 TAB PO PRN PRN for CONGESTION 09/29/17 Docusate Sodium (COLACE) 100 Mg Capsule, 100 MG PO PRN, #30 CAPSULE 08/27/17 Metoprolol Tartrate (Metoprolol Tartrate) 100 Mg Tablet, 100 MG PO BID, #60 0 Refills 06/26/10 Discontinued Scripts Hydrocodone Bit/Acetaminophen (HYDROCODON-ACETAMINOPHEN 5-325) 1 Each Tablet, 1 EACH PO Q4-6H PRN for PAIN, #12 TAB Prov:RHIANNA LARKIN UTILITY LOCATOR 12/04/17 Past Medical/Surgical History Patient has a past medical history of hypertension, oxygen at night, cholecystitis, urinary leakage, arthritis, degenerative disc disease, then skin, anxiety. Patient has surgical history of cholecystectomy, as well, cystoscopy, lithotr ipsy, right stent placement. Reviewed Nurses Notes: Yes Hx Smoking: No Smoking Status: Never Smoker Hx Substance Use Disorder: No Hx Alcohol Use: No Constitutional Vital Sign - Last 24 Hours 12/05/17 12/05/17 12/05/17 12/05/17 16:41 16:48 17:00 17:03 Temp 97.7 Pulse 94 88 79 Resp 24 B/P (MAP) 153/90 173/96 (121) Pulse Ox 94 94 93 O2 Delivery Room Air 12/05/17 12/05/17 12/05/17 12/05/17 17:18 17:30 17:33 17:48 Pulse 75 74 76 B/P (MAP) 171/94 (119) Pulse Ox 92 93 94 12/05/17 12/05/17 12/05/17 12/05/17 18:18 18:23 18:30 18:38 Pulse 74 60 62 B/P (MAP) ???/??? (3974) Pulse Ox 93 93 93 12/05/17 18:53 Pulse 77 Pulse Ox 94 Physical Exam General Appearance: The patient is alert, has no immediate need for airway protection and no current signs of toxicity. ENT: Tympanic membranes are pearly-lynne, auditory canals are patent, mucous m embranes are moist. Respiratory: Chest is non tender, lungs are clear to auscultation. Cardiac: regular rate and rhythm Gastrointestinal: Abdomen is soft and non tender, no masses, bowel sounds normal . Musculoskeletal: Neck: Neck is supple and non tender. Extremities have full range of motion and are non tender. Skin: No rashes or lesions. Patient does have some erythema in the perineal area DIFFERENTIAL DIAGNOSIS: After history and physical exam differential diagnosis was considered for UTI, pneumonia, weakness. Medical Decision Making Data Points Result Diagram: 12/05/17 1734 12/05/17 1734 Laboratory Hematology Test 12/05/17 17:34 12/05/17 17:48 Red Blood Count 4.94 M/uL (4.17-5.56) Mean Corpuscular Volume 89.3 fL (80.0-96.0) Mean Corpuscular Hemoglobin 30.0 pg (26.0-33.0) Mean Corpuscular Hemoglobin Concent 33.6 g/dL (32.0-36.0) Red Cell Distribution Width 15.0 % (11.5-14.5) Mean Platelet Volume 8.7 fL (7.2-11.1) Neutrophils (%) (Auto) 52.0 % (39.4-72.5) Lymphocytes (%) (Auto) 30.4 % (17.6-49.6) Monocytes (%) (Auto) 13.4 % (4.1-12.4) Eosinophils (%) (Auto) 2.8 % (0.4-6.7) Basophils (%) (Auto) 1.4 % (0.3-1.4) Nucleated RBC Relative Count (auto) 0.1 /100WBC Neutrophils # (Auto) 2.2 K/uL (2.0-7.4) Lymphocytes # (Auto) 1.3 K/uL (1.3-3.6) Monocytes # (Auto) 0.6 K/uL (0.3-1.0) Eosinophils # (Auto) 0.1 K/uL (0.0-0.5) Basophils # (Auto) 0.1 K/uL (0.0-0.1) Nucleated RBC Absolute Count (auto) 0.00 K/uL Sodium Level 138 mmol/L (137-145) Potassium Level 3.7 mmol/L (3.5-5.0) Chloride Level 105 mmol/L (98-107) Carbon Dioxide Level 20 mmol/L (22-31) Blood Urea Nitrogen 24 mg/dl (7-18) Creatinine 2.00 mg/dl (0.52-1.04) Glomerular Filtration Rate Calc 24.6 Random Glucose 110 mg/dl (75-110) Calcium Level 9.8 mg/dl (8.4-10.2) Total Bilirubin 0.5 mg/dl (0.2-1.3) Aspartate Amino Transf (AST/SGOT) 32 U/L (0-35) Alanine Aminotransferase (ALT/SGPT) 39 U/L (0-56) Alkaline Phosphatase 101 U/L (0-126) Total Protein 7.8 g/dl (6.3-8.2) Albumin 3.9 g/dl (3.5-5.0) Urine Color Yellow Urine Clarity Slightly-cloudy Urine pH 5.0 pH (4.8-9.5) Urine Specific Merkel 1.017 Urine Protein Negative mg/dL (NEGATIVE) Urine Glucose (UA) Negative mg/dL (NEGATIVE) Urine Ketones Negative mg/dL (NEGATIVE) Urine Blood Negative (NEGATIVE) Urine Nitrite Negative (NEGATIVE) Urine Bilirubin Negative (NEGATIVE) Urine Urobilinogen Negative mg/dL (0.2-1.9) Urine Leukocyte Esterase Moderate (NEGATIVE) Urine RBC 7 /HPF (0-2/HPF) Urine WBC 58 /HPF (0-5/HPF) Urine WBC Clumps Few /HPF Urine Squamous Epithelial Cells Few /LPF (NONE-FEW) Urine Bacteria Negative /HPF (NONE-FEW) Urine Hyaline Casts Few /LPF (NONE-FEW) Urine Mucus Few /HPF (NONE-FEW) Chemistry Test 12/05/17 17:34 12/05/17 17:48 White Blood Count 4.3 k/uL (4.5-11.0) Red Blood Count 4.94 M/uL (4.17-5.56) Hemoglobin 14.8 g/dL (12.0-16.0) Hematocrit 44.1 % (34.0-47.0) Mean Corpuscular Volume 89.3 fL (80.0-96.0) Mean Corpuscular Hemoglobin 30.0 pg (26.0-33.0) Mean Corpuscular Hemoglobin Concent 33.6 g/dL (32.0-36.0) Red Cell Distribution Width 15.0 % (11.5-14.5) Platelet Count 191 K/uL (150-450) Mean Platelet Volume 8.7 fL (7.2-11.1) Neutrophils (%) (Auto) 52.0 % (39.4-72.5) Lymphocytes (%) (Auto) 30.4 % (17.6-49.6) Monocytes (%) (Auto) 13.4 % (4.1-12.4) Eosinophils (%) (Auto) 2.8 % (0.4-6.7) Basophils (%) (Auto) 1.4 % (0.3-1.4) Nucleated RBC Relative Count (auto) 0.1 /100WBC Neutrophils # (Auto) 2.2 K/uL (2.0-7.4) Lymphocytes # (Auto) 1.3 K/uL (1.3-3.6) Monocytes # (Auto) 0.6 K/uL (0.3-1.0) Eosinophils # (Auto) 0.1 K/uL (0.0-0.5) Basophils # (Auto) 0.1 K/uL (0.0-0.1) Nucleated RBC Absolute Count (auto) 0.00 K/uL Glomerular Filtration Rate Calc 24.6 Calcium Level 9.8 mg/dl (8.4-10.2) Total Bilirubin 0.5 mg/dl (0.2-1.3) Aspartate Amino Transf (AST/SGOT) 32 U/L (0-35) Alanine Aminotransferase (ALT/SGPT) 39 U/L (0-56) Alkaline Phosphatase 101 U/L (0-126) Total Protein 7.8 g/dl (6.3-8.2) Albumin 3.9 g/dl (3.5-5.0) Urine Color Yellow Urine Clarity Slightly-cloudy Urine pH 5.0 pH (4.8-9.5) Urine Specific Merkel 1.017 Urine Protein Negative mg/dL (NEGATIVE) Urine Glucose (UA) Negative mg/dL (NEGATIVE) Urine Ketones Negative mg/dL (NEGATIVE) Urine Blood Negative (NEGATIVE) Urine Nitrite Negative (NEGATIVE) Urine Bilirubin Negative (NEGATIVE) Urine Urobilinogen Negative mg/dL (0.2-1.9) Urine Leukocyte Esterase Moderate (NEGATIVE) Urine RBC 7 /HPF (0-2/HPF) Urine WBC 58 /HPF (0-5/HPF) Urine WBC Clumps Few /HPF Urine Squamous Epithelial Cells Few /LPF (NONE-FEW) Urine Bacteria Negative /HPF (NONE-FEW) Urine Hyaline Casts Few /LPF (NONE-FEW) Urine Mucus Few /HPF (NONE-FEW) Urinalysis Test 12/05/17 17:48 Urine Color Yellow Urine Clarity Slightly-cloudy Urine pH 5.0 pH (4.8-9.5) Urine Specific Merkel 1.017 Urine Protein Negative mg/dL (NEGATIVE) Urine Glucose (UA) Negative mg/dL (NEGATIVE) Urine Ketones Negative mg/dL (NEGATIVE) Urine Blood Negative (NEGATIVE) Urine Nitrite Negative (NEGATIVE) Urine Bilirubin Negative (NEGATIVE) Urine Urobilinogen Negative mg/dL (0.2-1.9) Urine Leukocyte Esterase Moderate (NEGATIVE) Urine RBC 7 /HPF (0-2/HPF) Urine WBC 58 /HPF (0-5/HPF) Urine WBC Clumps Few /HPF Urine Squamous Epithelial Cells Few /LPF (NONE-FEW) Urine Bacteria Negative /HPF (NONE-FEW) Urine Hyaline Casts Few /LPF (NONE-FEW) Urine Mucus Few /HPF (NONE-FEW) EKG/Imaging Imaging 2 VIEWS CHEST INDICATION: Confusion COMPARISON: 07/23/2017. FINDINGS: Cardiomediastinal silhouette and pulmonary vessels within normal limits. There is no focal infiltrate or lobar consolidation. There is no pneumothorax or pleural effusion. No nodule. Scarring seen in both lower lobes. Upper abdomen is unremarkable. No acute bony abnormality. IMPRESSION: 1. No acute cardiopulmonary process. Report Dictated By: Holden Williamson at 12/05/2017 6:20 PM Report E-Signed By: Holden Williamson at 12/05/2017 6:22 PM EXAMINATION: Head CT without intravenous contrast HISTORY: Confusion. COMPARISON: None. TECHNIQUE: Contiguous axial images were obtained from the skull base to the vertex without intravenous contrast. Sagittal and coronal reformatted images are also submitted. One of the following dose optimization techniques was utilized in the performance of this exam: Automated exposure control; adjustment of the mA and/or kV according to the patient's size; or use of an iterative reconstruction technique. Specific details can be referenced in the facility's radiology CT exam operational policy. FINDINGS: Brain and intracranial structures: Ventricles, sulci, and cisterns are normal in size. Lynne-white matter differentiation is maintained. Patchy hypoattenuating regions in the peripheral and deep cerebral white matter. No midline shift, acute hemorrhage, mass, or evidence of acute infarct. Vessels: Mild calcification of the carotid siphons. Calvarium / scalp: Negative. No acute fracture. Skull base / visualized face: Mild rightward bowing of the nasal septum. Visualized sinuses / orbits: Trace mucosal thickening in the paranasal sinuses. IMPRESSION: No CT evidence of acute intracranial pathology. Moderate white matter changes, likely chronic small vessel ischemic changes. Report Dictated By: Blair Flower MD at 12/05/2017 6:14 PM Report E-Signed By: Blair Flower MD at 12/05/2017 6:20 PM ED Course/Re-evaluation ED Course Patient was admitted exam room, history of physical were obtained. Differential diagnoses were considered. He CBC, CMP, urinalysis, chest x-ray, CT scan of the head were done. Lab results were unremarkable, except she did have worsening of her creatinine up to 2.0 from 1.6. Also had a leukocyte esterase with 58 white blood cells per high-power field her urine. I discussed the case with Dr. Anthony, hospitals, he felt that the patient could very easily go home with oral medication for pushing fluids. However case could be made that the patient could be admitted and treated with IV antibiotics and IV fluids. I discussed the options with the patient and her granddaughter. Patient states she does want to be admitted. I discussed the case with Dr. Anthony who agreed to accept the patient for admission. Decision to Disposition Date: Dec 05, 2017 Decision to Disposition Time: 19:04 Depart Departure Latest Vital Signs Vital Signs Date Time Temp Pulse Resp B/P (MAP) Pulse Ox O2 Delivery O2 Flow Rate FiO2 12/05/17 18:53 77 94 12/05/17 18:30 ???/??? (6169) 12/05/17 16:41 97.7 24 Room Air Impression: Primary Impression: UTI (urinary tract infection) Additional Impression: Dehydration Condition: Condition Unchanged Disposition: Admitted from ER Referrals: EBER GONCALVES DO (PCP) Problem Qualifiers Primary Impression: UTI (urinary tract infection) Urinary tract infection type: acute cystitis Hematuria presence: without hematuria Qualified Codes: N30.00 - Acute cystitis without hematuria RHIANNA LARKIN Dec 05, 2017 16:45
[2017-12-05 17:44] LABS: PLATELET COUNT, AUTOMATED 191 K/uL (150-450)
--- NOTE | 2017-12-05 18:25 | RADIOLOGY IMAGING REPORT ---
FACILITY: [facility] - [place] PATIENT NAME: Sarah Tomlinson : 1945 MR: [id number] V: [id number] EXAM DATE: ORDERING PHYSICIAN: RHIANNA LARKIN TECHNOLOGIST: Location: [facility] Patient: Sarah Tomlinson : 1945 Visit/Account:[id number] Date of Sevice: 12/05/2017 EXAMINATION: Head CT without intravenous contrast HISTORY: Confusion. COMPARISON: None. TECHNIQUE: Contiguous axial images were obtained from the skull base to the vertex without intraven ous contrast. Sagittal and coronal reformatted images are also submitted. One of the following dose optimization techniques was utilized in the performance of this exam: Autom ated exposure control; adjustment of the mA and/or kV according to the patient's size; or use of an i terative reconstruction technique. Specific details can be referenced in the facility's radiology C T exam operational policy. FINDINGS: Brain and intracranial structures: Ventricles, sulci, and cisterns are normal in size. Lynne-white ma tter differentiation is maintained. Patchy hypoattenuating regions in the peripheral and deep cerebra l white matter. No midline shift, acute hemorrhage, mass, or evidence of acute infarct. Vessels: Mild calcification of the carotid siphons. Calvarium / scalp: Negative. No acute fracture. Skull base / visualized face: Mild rightward bowing of the nasal septum. Visualized sinuses / orbits: Trace mucosal thickening in the paranasal sinuses. IMPRESSION: No CT evidence of acute intracranial pathology. Moderate white matter changes, likely chronic small vessel ischemic changes. Report Dictated By: Blair Flower MD at 12/05/2017 6:14 PM Report E-Signed By: Blair Flower MD at 12/05/2017 6:20 PM WSN:[id number]
--- NOTE | 2017-12-05 18:26 | RADIOLOGY IMAGING REPORT ---
FACILITY: [facility] - [place] PATIENT NAME: Sarah Tomlinson : 1945 MR: [id number] V: [id number] EXAM DATE: ORDERING PHYSICIAN: RHIANNA LARKIN TECHNOLOGIST: Location: [facility] - [place] Patient: Sarah Tomlinson : 1945 Visit/Account:[id number] Date of Sevice: 12/05/2017 2 VIEWS CHEST INDICATION: Confusion COMPARISON: 07/23/2017. FINDINGS: Cardiomediastinal silhouette and pulmonary vessels within normal limits. There is no focal infiltrate or lobar consolidation. There is no pneumothorax or pleural effusion. No nodule. Scarring seen in both lower lobes. Upper abdomen is unremarkable. No acute bony abnormalit y. IMPRESSION: 1. No acute cardiopulmonary process. Report Dictated By: Holden Williamson at 12/05/2017 6:20 PM Report E-Signed By: Holden Williamson at 12/05/2017 6:22 PM WSN:[id number]
[2017-12-05] MEDS ORDERED: cefTRIAXone(*) 1 GM VIAL 1 GM in NS(*) 0.9% 100 ML ADDVANT BAG 100 ML IVPB ONE (19:00)
[2017-12-05 20:04] VITALS: BP 165/87
[2017-12-05] MEDS ORDERED: NS(*) 0.9% 1000 ML BAG 1,000 ML IV PRN (20:46)
[2017-12-05] MEDS ORDERED: ACETAMINOPHEN 325 MG TAB PO PRN (20:50)
[2017-12-05] MEDS ORDERED: INFLUENZA VIRUS VAC 0.5ML SYR IM ONLY ONE (20:50)
[2017-12-05] MEDS ORDERED: PROMETHAZINE 25 MG/ML 1 ML AMP IVP PRN (21:00)
--- NOTE | 2017-12-05 21:38 | History & Physical ---
History of Present Illness Chief Complaint Weak History of Present Illness 72yo female with PMHx significant for recurrent nephrolithiasis, recurrent UTIs, HTN, recent herpes zoster. She reports increasing weakness and inability to care for herself. She has had slowly progressive back/hip pain limiting her mobility. She has had increasing problems with urinary incontinence over past several years. All of this seemed to worsen significantly over the past few weeks- months. She had recent lithotripsy for left nephrolithiasis with stent removal. Following this she developed rash over her left parietal and left submandibular areas. She was seen in the ER and diagnosed with herpes zoster. She was started on oral Valtrex 1gm TID (x 7days). She has also been incontinent of urine and rarely makes it to the toilet to void. She wears adult diapers. She has developed significant rash/discomfort in her perineal/inguinal areas. She is unsure if she has had any fevers or chills. No diarrhea. Her appetite has been poor. She has tried to drink 2 quarts of fluids daily, "but it's hard". She was evaluated in the ER and found to have evidence of UTI, dehydration, candidiasis, C2-C3 herpes zoster. She was recommended for admission. History Problems: (1) History of lithotripsy Status: Resolved (2) History of kidney stones Status: Chronic (3) HTN (hypertension) Status: Chronic (4) CKD (chronic kidney disease) stage 3, GFR 30-59 ml/min Status: Chronic (5) Sepsis Status: Resolved (6) History of cholecystectomy Status: Resolved (7) S/P ureteral stent placement Status: Resolved (8) ANXIETY DISORDER, UNSPECIFIED Status: Chronic Home Meds Active Scripts Valacyclovir Hcl (VALTREX) 1,000 Mg Tablet, 1000 MG PO TID, #20 TAB Prov:RHIANNA LARKIN 12/04/17 Promethazine Hcl (PROMETHAZINE HCL) 25 Mg Tablet, 25 MG PO Q8H PRN for NAUSEA/VOMITING, #20 TAB 0 Refills Prov:LOIS VILLANUEVA MD 09/11/17 Nifedipine (PROCARDIA XL) 30 Mg Tab.er.24, 30 MG PO QDAY, #30 TAB Prov:MANAV ARVIZU DO 07/26/17 Reported Medications Hydrocodone Bit/Acetaminophen (NORCO 7.5-325 TABLET) 1 Each Tablet, 1 EACH PO Q4-6H PRN for PAIN, #30 11/26/17 Ibuprofen (IBUPROFEN) 800 Mg Tablet, 1 TAB PO TID PRN for PAIN, #50 TAB 11/26/17 Famotidine (FAMOTIDINE) 20 Mg Tablet, 20 MG PO BID, #20 TAB 11/26/17 Ciprofloxacin Hcl (CIPROFLOXACIN HCL) 500 Mg Tablet, 500 MG PO Q12H for 10 Days, #20 TAB 11/26/17 Hydroxyzine Hcl (HYDROXYZINE HCL) 50 Mg Tablet, 50 MG PO TID PRN for ANXIETY 11/26/17 Solifenacin Succinate (VESICARE) 10 Mg Tablet, 10 MG PO QDAY 11/23/17 Phenazopyridine Hcl (PHENAZOPYRIDINE HCL) 200 Mg Tablet, 200 MG PO TID PRN for BURNING WITH URINATION, TAB 10/05/17 Chlorpheniramine/Dextromethorp (Eql Cough-Cold Relief Hbp Tab) 4 Mg-30 Mg Tab let, 1 TAB PO PRN PRN for CONGESTION 09/29/17 Docusate Sodium (COLACE) 100 Mg Capsule, 100 MG PO PRN, #30 CAPSULE 08/27/17 Metoprolol Tartrate (Metoprolol Tartrate) 100 Mg Tablet, 100 MG PO BID, #60 0 Refills 06/26/10 Discontinued Scripts Hydrocodone Bit/Acetaminophen (HYDROCODON-ACETAMINOPHEN 5-325) 1 Each Tablet, 1 EACH PO Q4-6H PRN for PAIN, #12 TAB Prov:RHIANNA LARKIN INDEPENDENT TRADER 12/04/17 Allergies: Coded Allergies: latex (Verified Allergy, Severe, RASH, 11/23/17) PEELS SKIN OFF Sulfa (Sulfonamide Antibiotics) (Verified Allergy, Unknown, HIVES, 10/20/17) Other Social/Family Hx She currently lives alone in her own mobile home. Hx Smoking: No Smoking Status: Never Smoker Caffeine Intake: Coffee Caffeine/Cups Per Day: 2 CUPS A DAY Hx Alcohol Use: No Hx Substance Use Disorder: No Social Drug Use: Never Review of Systems Constitutional: No Fever, No Chills, No Night Sweats Neurological: Weakness; No Syncope Eyes: No Vision Change, No Loss of Vision ENT: No Hearing Loss Cardiovascular: No Chest Pain, No Palpitations Respiratory: No Shortness of Breath, No Cough Gastrointestinal: No Nausea, No Vomiting, No Diarrhea, No Hematemesis, No Hematochezia, No Melena, No Abdominal Pain Genitourinary: Dysuria, Urinary Incontinence; No Hematuria Musculoskeletal: Pain, Impaired Mobility Psychiatric: Anxiety Exam Vital Signs Vital Signs Date Time Temp Pulse Resp B/P (MAP) Pulse Ox O2 Delivery O2 Flow Rate FiO2 12/05/17 20:04 98.0 93 24 165/87 (113) 92 Room Air General Appearance: Alert, Awake Neuro: Other (generalized weakness virtually all muscle groups) Eyes: PERRLA ENT: Oropharynx Clear, Other (coalescent lesions over left parietal area/multiple lesions over left submandibular area and anterior neck - they do not cross midline) Neck: Other (several enlarged LN left preauricular/anterior cervical areas) Cardiovascular: Regular Rate and Rhythm (with systolic murmur best at apex) Respiratory: Other (Fairly clear) Chest: No Tenderness GI: Other (Obese/soft/NT/BS present) : No CVA Tenderness Musculoskeletal: Other (generalized weakness) Extremities: Warm, Perfused Integumentary: Generalized Fragile Skin, Other (candidal changes bilateral inguinal areas and throughout perineum) Psych: Alert & Oriented X3 Medical Decision Making Data Points Result Diagram: 12/05/17 1734 12/05/17 1734 Item Value Date Time Urine Mucus Few /HPF 12/05/17 1748 Urine Hyaline Casts Few /LPF 12/05/17 1748 Urine Bacteria Negative /HPF 12/05/17 1748 Urine Squamous Epithelial Cells Few /LPF 12/05/17 1748 Urine WBC Clumps Few /HPF 12/05/17 1748 Urine WBC 58 /HPF 12/05/17 1748 Urine RBC 7 /HPF 12/05/17 1748 Urine Leukocyte Esterase Moderate H 12/05/17 1748 Urine Urobilinogen Negative mg/dL 12/05/17 1748 Urine Bilirubin Negative 12/05/17 1748 Urine Nitrite Negative 12/05/17 1748 Urine Blood Negative 12/05/17 1748 Urine Ketones Negative mg/dL 12/05/17 1748 Urine Glucose (UA) Negative mg/dL 12/05/17 1748 Urine Protein Negative mg/dL 12/05/17 1748 Urine Specific [place] 1.017 12/05/17 1748 Urine pH 5.0 pH 12/05/17 1748 Urine Clarity Slightly-cloudy 12/05/17 1748 Urine Color Yellow 12/05/17 1748 Albumin 3.9 g/dl 12/05/17 1734 Total Protein 7.8 g/dl 12/05/17 1734 Alkaline Phosphatase 101 U/L 12/05/17 1734 Alanine Aminotransferase (ALT/SGPT) 39 U/L 12/05/17 1734 Aspartate Amino Transf (AST/SGOT) 32 U/L 12/05/17 1734 Total Bilirubin 0.5 mg/dl 12/05/17 1734 Calcium Level 9.8 mg/dl 12/05/17 1734 EKG / Imaging Imaging PATIENT NAME: Sarah Tomlinson : 1945 MR: [id number] V: [id number] EXAM DATE: [id number] ORDERING PHYSICIAN: RHIANNA LARKIN TECHNOLOGIST: Location: [facility] [place] Patient: Sarah Tomlinson : 1945 Visit/Account:[id number] Date of Sevice: 12/05/2017 2 VIEWS CHEST INDICATION: Confusion COMPARISON: 07/23/2017. FINDINGS: Cardiomediastinal silhouette and pulmonary vessels within normal limits. There is no focal infiltrate or lobar consolidation. There is no pneumothorax or pleural effusion. No nodule. Scarring seen in both lower lobes. Upper abdomen is unremarkable. No acute bony abnormality. IMPRESSION: 1. No acute cardiopulmonary process. Report Dictated By: Holden Williamson at 12/05/2017 6:20 PM Report E-Signed By: Holden Williamson at 12/05/2017 6:22 PM WSN:[id number] PATIENT NAME: Sarah Tomlinson : 1945 MR: [id number] V: [id number] EXAM DATE: [id number] ORDERING PHYSICIAN: RHIANNA LARKIN TECHNOLOGIST: Location: [facility] [place] Patient: Sarah Tomlinson : 1945 Visit/Account:[id number] Date of Sevice: 12/05/2017 EXAMINATION: Head CT without intravenous contrast HISTORY: Confusion. COMPARISON: None. TECHNIQUE: Contiguous axial images were obtained from the skull base to the vertex without intravenous contrast. Sagittal and coronal reformatted images are also submitted. One of the following dose optimization techniques was utilized in the performance of this exam: Automated exposure control; adjustment of the mA and/or kV according to the patient's size; or use of an iterative reconstruction technique. Specific details can be referenced in the facility's radiology CT exam operational policy. FINDINGS: Brain and intracranial structures: Ventricles, sulci, and cisterns are normal in size. Lynne-white matter differentiation is maintained. Patchy hypoattenuating regions in the peripheral and deep cerebral white matter. No midline shift, acute hemorrhage, mass, or evidence of acute infarct. Vessels: Mild calcification of the carotid siphons. Calvarium / scalp: Negative. No acute fracture. Skull base / visualized face: Mild rightward bowing of the nasal septum. Visualized sinuses / orbits: Trace mucosal thickening in the paranasal sinuses. IMPRESSION: No CT evidence of acute intracranial pathology. Moderate white matter changes, likely chronic small vessel ischemic changes. Report Dictated By: Blair Flower MD at 12/05/2017 6:14 PM Report E-Signed By: Blair Flower MD at 12/05/2017 6:20 PM WSN:[id number] Assessment and Plan Problems: (1) UTI (urinary tract infection) Status: Acute Assessment & Plan: Recurrent. She has had several infections over the past year. Based on sensitivities of past organisms, will start on IV Rocephin. Culture has been obtained in the ER. This may be complicated by her history of renal stones with probable residual stones on left side. May need to have ur ology see her again. (2) Dehydration Status: Acute Assessment & Plan: Due to decreased intake. Will give IV fluids. Watch labs/urine output. (3) Herpes zoster Status: Acute Assessment & Plan: Left C2-C3 dermatomes. Will continue the Valtrex 1gm PO TID for 6 more days. (4) HTN (hypertension) Status: Chronic Assessment & Plan: Will monitor BPs and resume her metoprolol and nifedipine with parameters. (5) Candidiasis of perineum Status: Acute Assessment & Plan: Will place Stout cath due to incontinence, use nystatin topical, try to keep clean/dry. (6) Weakness generalized Status: Acute Assessment & Plan: Most likely due to the multiple medical problems. Will treat the UTI, dehydration, zoster. Will have PT/OT see. She may need more help at home if she hopes to stay at least semi-independent. Will have Social Work see. Copies to: EBER GONCALVES DO ; Venous Thromboembolism Antithrombotics Is Pt On Any Antithrombotics?: Yes Exam Sepsis Risk: No Definite Risk Problem Qualifiers (1) UTI (urinary tract infection): Urinary tract infection type: acute cystitis Hematuria presence: without hematuria Qualified Codes: N30.00 - Acute cystitis without hematuria ILYA TYLER MD Dec 05, 2017 21:38
[2017-12-05] MEDS: APAP/HYDROCODONE 325/7.5 TAB PO PRN (21:40)
[2017-12-05] MEDS: FAMOTIDINE 20 MG TAB PO SCH (21:40)
[2017-12-05] MEDS: METOPROLOL TART 50 MG TAB PO SCH (21:40)
[2017-12-05] MEDS: hydrOXYzine 25 MG TAB PO PRN (21:41)
[2017-12-05] MEDS: DOCUSATE SODIUM 100 MG CAP PO SCH (21:41)
[2017-12-05 21:44] VITALS: BP 147/92
[2017-12-05] MEDS: NYSTATIN 100,000 U/GM PWD 15GM TP SCH (22:10)
[2017-12-05] MEDS: valACYclovir HCL 500 MG TAB PO SCH (22:10)
[2017-12-06 05:53] VITALS: BP 148/86
[2017-12-06 06:48] LABS: PLATELET COUNT, AUTOMATED 156 K/uL (150-450)
[2017-12-06 07:23] VITALS: BP 152/94
[2017-12-06] MEDS: APAP/HYDROCODONE 325/7.5 TAB PO PRN ×3 (08:47→20:23)
[2017-12-06] MEDS: ENOXAPARIN 40 MG/0.4ML SYR SC SCH (09:38)
[2017-12-06] MEDS: NIFEdipine XL 30 MG TABCR PO SCH (09:38)
[2017-12-06] MEDS: DOCUSATE SODIUM 100 MG CAP PO SCH ×2 (09:38→20:23)
[2017-12-06] MEDS: NYSTATIN 100,000 U/GM PWD 15GM TP SCH (09:38)
[2017-12-06] MEDS: FAMOTIDINE 20 MG TAB PO SCH ×2 (09:38→20:23)
[2017-12-06] MEDS: valACYclovir HCL 500 MG TAB PO SCH ×3 (09:39→20:23)
[2017-12-06] MEDS: METOPROLOL TART 50 MG TAB PO SCH ×2 (09:39→20:23)
[2017-12-06 10:15] VITALS: Ht 162.6 cm; Wt 133.1 kg
--- NOTE | 2017-12-06 11:08 | Hospitalist Progress Note ---
Subjective Progress Notes Subjective 72F admitted for UTI and weakness. MONTY overnight, weak and unable to make it to bathroom. Reports she needs help to care for self at home. Patient Complains of: Neurological: No: Confusion Gastrointestinal: No Nausea, No Vomiting Physical Exam Vital Signs Date Time Temp Pulse Resp B/P (MAP) Pulse Ox O2 Delivery O2 Flow Rate FiO2 12/06/17 07:23 92 Room Air 12/06/17 07:23 98.0 75 14 152/94 (113) Intake and Output 12/06/17 07:00 Intake Total 1154 ml Output Total 750 ml Balance 404 ml Intake Oral 300 ml IV Total 854 ml Output Urine Total 750 ml General Appearance: Alert, Awake, No Acute Distress Neuro: No Gross deficits Eyes: PERRLA ENT: Normal Neck: No Masses Cardiovascular: Normal Rhythm & Peripheral Pulses Respiratory: No Respiratory Distress GI: Soft and Non-Tender Musculoskeletal: No Weakness/Pain Extremities: Soft and Non Tender, Pulses, Perfused, Edema Integumentary: Other (dried shingles lesions L jaw and occiput/temporal area) Psych: Alert & Oriented X3 Result Diagram: 12/06/17 0554 12/06/17 0548 Assessment and Plan Problems: (1) UTI (urinary tract infection) Status: Acute Assessment & Plan: Recurrent. She has had several infections over the past year. Based on sensitivities of past organisms, will start on IV Rocephin. Culture has been obtained in the ER. This may be complicated by her history of renal stones with probable residual stones on left side. May need to have u rology see her again. (2) Dehydration Status: Acute Assessment & Plan: Improved, monitor PO intake and UOP. (3) Herpes zoster Status: Acute Assessment & Plan: Left C2-C3 dermatomes. Will continue the Valtrex 1gm PO TID through 12.11.2017 (4) HTN (hypertension) Status: Chronic Assessment & Plan: Will monitor BPs and resume her metoprolol and nifedipine with parameters. (5) Candidiasis of perineum Status: Acute Assessment & Plan: Stout cath due to incontinence, use nystatin topical, try to keep clean/dry. (6) Weakness generalized Status: Acute Assessment & Plan: Most likely due to the multiple medical problems. Will treat the UTI, dehydration, zoster. Will have PT/OT see. She may need more help at home if she hopes to stay at least semi-independent. Will have Social Work see. Exam Sepsis Risk: No Definite Risk Problem Qualifiers (1) UTI (urinary tract infection): Urinary tract infection type: acute cystitis Hematuria presence: without hematuria Qualified Codes: N30.00 - Acute cystitis without hematuria MIGUEL MUSTAFA DO Dec 06, 2017 11:07
[2017-12-06 15:20] VITALS: BP 153/79
[2017-12-06] MEDS ORDERED: cefTRIAXone 2 GM VIAL IVP SCH (19:00)
[2017-12-06 20:16] VITALS: BP 136/71
[2017-12-06] MEDS: hydrOXYzine 25 MG TAB PO PRN (20:23)
[2017-12-06] MEDS: [UNRECOGNIZED DRUG - OTHER] TP SCH (20:23)
[2017-12-07 06:21] VITALS: BP 158/84
[2017-12-07] MEDS: APAP/HYDROCODONE 325/7.5 TAB PO PRN ×2 (06:25→20:21)
[2017-12-07] MEDS: DOCUSATE SODIUM 100 MG CAP PO SCH ×2 (09:00→20:21)
[2017-12-07] MEDS: NIFEdipine XL 30 MG TABCR PO SCH (09:00)
[2017-12-07] MEDS: METOPROLOL TART 50 MG TAB PO SCH ×2 (10:13→20:21)
[2017-12-07] MEDS: [UNRECOGNIZED DRUG - OTHER] TP SCH ×2 (10:13→20:22)
[2017-12-07] MEDS: ENOXAPARIN 40 MG/0.4ML SYR SC SCH (10:14)
[2017-12-07] MEDS: FAMOTIDINE 20 MG TAB PO SCH ×2 (10:14→20:21)
[2017-12-07] MEDS: valACYclovir HCL 500 MG TAB PO SCH ×3 (10:15→20:21)
[2017-12-07 10:20] VITALS: BP 137/98
[2017-12-07] MEDS ORDERED: cefTRIAXone 2 GM VIAL IVP SCH ×2 (10:30→19:00)
--- NOTE | 2017-12-07 10:48 | Hospitalist Progress Note ---
Subjective Progress Notes Subjective She reports feeling much improved. Physical Exam Vital Signs Date Time Temp Pulse Resp B/P (MAP) Pulse Ox O2 Delivery O2 Flow Rate FiO2 12/07/17 06:21 98.3 66 18 158/84 (108) 91 Nasal Cannula 2.0 Intake and Output 12/07/17 07:00 Intake Total 200 ml Output Total 825 ml Balance -625 ml Intake Oral 200 ml Output Urine Total 825 ml # Bowel Movements 1 General Appearance: Alert, Awake Integumentary: Other (zoster essentially unchanged left C2-C3 dermatomes/perineum and inguinal areas much less erythematous) Psych: Alert & Oriented X3 Result Diagram: 12/06/17 0554 12/07/17 0541 Assessment and Plan Problems: (1) UTI (urinary tract infection) Status: Acute Assessment & Plan: Recurrent. She has had several infections over the past year. Based on sensitivities of past organisms, we started her on IV Rocephin. Culture obtained in the ER is negative, but she had been on Cipro since her lithotripsy on 11/26/17. The UTI may be complicated by her history of renal s tones with probable residual stones on left side. May need to have urology see her again. (2) Dehydration Status: Acute Assessment & Plan: Improved with IV fluids and oral intake. Watch labs/UOP. (3) Acute renal failure Status: Acute Assessment & Plan: Improved. Creatinine is now 1.3 (down from 2.0 at time of admission). Most likely due to dehydration and acute infection. (4) Herpes zoster Status: Acute Assessment & Plan: Left C2-C3 dermatomes. Will continue the Valtrex 1gm PO TID through 12/11/2017 (5) HTN (hypertension) Status: Chronic Assessment & Plan: Will monitor BPs and resume her metoprolol and nifedipine with parameters. (6) Candidiasis of perineum Status: Acute Assessment & Plan: Improved. Stout cath placed due to incontinence, continue nystatin topical, try to keep clean/dry. (7) Weakness generalized Status: Acute Assessment & Plan: Improved. Most likely due to the multiple medical problems - UTI, dehydration, zoster. PT/OT to see. She may need more help at home if she hopes to stay at least semi-independent. Will have Social Work see. (8) Obesity, morbid, BMI 50 or higher Status: Chronic Exam Sepsis Risk: No Definite Risk Problem Qualifiers (1) UTI (urinary tract infection): Urinary tract infection type: acute cystitis Hematuria presence: without hematuria Qualified Codes: N30.00 - Acute cystitis without hematuria ILYA TYLER MD Dec 07, 2017 10:48
[2017-12-07 15:12] VITALS: BP 84/87
--- NOTE | 2017-12-07 15:46 | Antimicrobial Stewardship ---
Antimicrobial Stewardship Empiricly appropriate: Yes Significant PMH: Yes Support empiric regimen: Yes Comment History of UTIs, recent lithotripsy with stones on 11/26/17, d/c'd on cipro x 10 days (was on cipro with current UA/culture) Approriate Cultures done: Yes Determine cumulative duration: Consulted with Dr. Noguera to determine further treatment Determine standard duration: 10-14d with stones Comment 72 yo F with kidney stones s/p lithotripsy on 11/26/17, was on cipro at home prior to admission. UA showed increased WBC, urine cx is negative. Plan to consult urology regarding antibiotics. Continue Ceftriaxone 2g IV q24h until consult with urology. Marta Morris, PharmD, BCOP MARTA MORRIS Dec 07, 2017 15:46
[2017-12-07 20:11] VITALS: BP 158/80
[2017-12-07] MEDS: hydrOXYzine 25 MG TAB PO PRN (20:21)
[2017-12-08 02:49] VITALS: BP 146/73
[2017-12-08] MEDS: APAP/HYDROCODONE 325/7.5 TAB PO PRN ×2 (02:50→20:25)
[2017-12-08] MEDS: hydrOXYzine 25 MG TAB PO PRN ×2 (02:52→14:45)
[2017-12-08 06:08] LABS: PLATELET COUNT, AUTOMATED 146 K/uL (150-450)
[2017-12-08 07:16] VITALS: BP 168/92
[2017-12-08] MEDS: [UNRECOGNIZED DRUG - OTHER] TP SCH ×2 (09:35→20:20)
[2017-12-08] MEDS: DOCUSATE SODIUM 100 MG CAP PO SCH ×2 (09:35→20:21)
[2017-12-08] MEDS: valACYclovir HCL 500 MG TAB PO SCH ×3 (09:36→20:21)
[2017-12-08] MEDS: METOPROLOL TART 50 MG TAB PO SCH ×2 (09:36→20:21)
[2017-12-08] MEDS: ENOXAPARIN 40 MG/0.4ML SYR SC SCH (09:36)
[2017-12-08] MEDS: FAMOTIDINE 20 MG TAB PO SCH ×2 (09:36→20:20)
[2017-12-08] MEDS: NIFEdipine XL 30 MG TABCR PO SCH (09:53)
--- NOTE | 2017-12-08 13:22 | Hospitalist Progress Note ---
Subjective Progress Notes Subjective Still feeling a bit weak. Stout catheter in place. Skin fold nick and skin breakdown improving per staff. Physical Exam Vital Signs Date Time Temp Pulse Resp B/P (MAP) Pulse Ox O2 Delivery O2 Flow Rate FiO2 12/08/17 07:31 92 Room Air 12/08/17 07:16 98.2 53 20 168/92 (117) 12/08/17 02:49 2.0 Intake and Output 12/08/17 07:00 Intake Total 1330 ml Output Total 700 ml Balance 630 ml Intake Oral 1330 ml Output Urine Total 700 ml # Bowel Movements 1 General Appearance: Alert, Awake, No Acute Distress GI: Soft and Non-Tender Integumentary: Other (mild erythema in skin folds in perineal area and abdomen. Also, some skin breakdown. Scabed lesions on left neck below chin and into the scalp on the left) Result Diagram: 12/08/17 0538 12/08/17 0538 Assessment and Plan Problems: (1) UTI (urinary tract infection) Status: Acute Assessment & Plan: Recurrent. She has had several infections over the past year. Based on sensitivities of past organisms, we started her on IV Rocephin. Culture obtained in the ER is negative, but she had been on Cipro since her lithotripsy on 11/26/17. The UTI may be complicated by her history of renal stones with probable residual stones on left side. May need to have urology see her again. (2) Dehydration Status: Acute Assessment & Plan: Improved with IV fluids and oral intake. Watch labs/UOP. (3) Acute renal failure Status: Acute Assessment & Plan: Improved. Creatinine is now 1.4 (down from 2.0 at time of admission). Most likely due to dehydration and acute infection. Saline locked. (4) Candidiasis of perineum Status: Acute Assessment & Plan: Improved. Stout cath placed due to incontinence, continue nystatin topical, try to keep clean/dry. Staff doing daily wound care to areas of skin breakdown. The patient reports difficulty doing own skin care. (5) Herpes zoster Status: Acute Assessment & Plan: Left C2-C3 dermatomes. Most lesions appear scabbed over. No obvious vesicles. Will continue the Valtrex 1gm PO TID through 12/11/2017 (6) Weakness generalized Status: Acute Assessment & Plan: Improved. Most likely due to the multiple medical problems - UTI, dehydration, zoster. PT/OT to see. She may need to go to ECF or more help at home if she hopes to stay at least semi-independent. Will have Social Work see. (7) HTN (hypertension) Status: Chronic Assessment & Plan: Will monitor BPs and resume her metoprolol and nifedipine with parameters. (8) Obesity, morbid, BMI 50 or higher Status: Chronic Exam Sepsis Risk: No Definite Risk Problem Qualifiers (1) UTI (urinary tract infection): Urinary tract infection type: acute cystitis Hematuria presence: without hematuria Qualified Codes: N30.00 - Acute cystitis without hematuria ISSAC VEGA MD Dec 08, 2017 13:22
[2017-12-08 15:08] VITALS: BP 155/80
[2017-12-08 19:55] VITALS: BP 159/91
[2017-12-09 05:08] VITALS: BP 137/76
[2017-12-09] MEDS: APAP/HYDROCODONE 325/7.5 TAB PO PRN ×2 (05:19→13:47)
[2017-12-09 08:57] VITALS: BP 146/84
[2017-12-09] MEDS: ENOXAPARIN 40 MG/0.4ML SYR SC SCH (09:06)
[2017-12-09] MEDS: FAMOTIDINE 20 MG TAB PO SCH (09:06)
[2017-12-09] MEDS: METOPROLOL TART 50 MG TAB PO SCH (09:06)
[2017-12-09] MEDS: NIFEdipine XL 30 MG TABCR PO SCH (09:06)
[2017-12-09] MEDS: valACYclovir HCL 500 MG TAB PO SCH (09:07)
[2017-12-09] MEDS: [UNRECOGNIZED DRUG - OTHER] TP SCH (09:07)
[2017-12-09] MEDS: DOCUSATE SODIUM 100 MG CAP PO SCH (09:07)
[2017-12-09] MEDS ORDERED: NYST15CR32 TP (10:17)
--- NOTE | 2017-12-09 10:41 | Hospitalist Depart ---
Discharge Summary Reason for Hosp/Final Diag: (1) UTI (urinary tract infection) Status: Acute Hospital Course & Plan: Her initial urinalysis showed moderate leukocytes and elevated WBC. She was started empirically on ceftriaxone. Her culture from the emergency room was negative, but she had been on ciprofloxacin as an outpatient. Antibiotics were discontinued on 12/07. (2) Dehydration Status: Acute Hospital Course & Plan: Resolved with IV fluids. (3) Acute renal failure Status: Acute Hospital Course & Plan: Resolved with IV fluids. (4) Candidiasis of perineum Status: Acute Hospital Course & Plan: She has been placed on topical Nystatin. (5) Herpes zoster Status: Acute Hospital Course & Plan: She had been on valacyclovir prior to admission. Her lesions have all scabbed over. She complete her prior prescription. (6) Weakness generalized Status: Acute Hospital Course & Plan: She was evaluated by therapy, and will continued rehab through home health. (7) HTN (hypertension) Status: Chronic Hospital Course & Plan: She is on chronic treatment with metoprolol and nifedipine. (8) Obesity, morbid, BMI 50 or higher Status: Chronic Departure Latest Vital Signs Vital Signs 12/09/17 12/09/17 05:08 08:57 Temp 97.3 Pulse 64 Resp 16 B/P (MAP) 146/84 (104) Pulse Ox 95 O2 Delivery Room Air O2 Flow Rate 2.0 Weight (Pounds): 293 Weight (Ounces): 7.0 Result Diagram: 12/08/17 0538 12/08/17537 Condition: Improved Discharge: Home, Home Health PT/OT Follow Up For: PT For Strengthening Home Health RN Follow Up For: Medication Management, Nursing Assessment Home Health DRYWALL TAPER HELPER Follow Up For: ADL Assistance Discharge Instructions Home Meds Active Scripts NYSTATIN [id number] UNT/ML Topical Cream (NYSTATIN 229860 UNT/ML Topical Cream) 15 Gm Cream..g., 0 GM TP BID, #15 G Prov:MANAV ARVIZU DO 12/09/17 Valacyclovir Hcl (VALTREX) 1,000 Mg Tablet, 1000 MG PO TID, #20 TAB Prov:RHIANNA LARKIN 12/04/17 Promethazine Hcl (PROMETHAZINE HCL) 25 Mg Tablet, 25 MG PO Q8H PRN for NAUSEA/VOMITING, #20 TAB 0 Refills Prov:LOIS VILLANUEVA MD 09/11/17 Nifedipine (PROCARDIA XL) 30 Mg Tab.er.24, 30 MG PO QDAY, #30 TAB Prov:MANAV ARVIZU DO 07/26/17 Reported Medications Hydrocodone Bit/Acetaminophen (NORCO 7.5-325 TABLET) 1 Each Tablet, 1 EACH PO Q4-6H PRN for PAIN, #30 11/26/17 Famotidine (FAMOTIDINE) 20 Mg Tablet, 20 MG PO BID, #20 TAB 11/26/17 Hydroxyzine Hcl (HYDROXYZINE HCL) 50 Mg Tablet, 50 MG PO TID PRN for ANXIETY 11/26/17 Solifenacin Succinate (VESICARE) 10 Mg Tablet, 10 MG PO QDAY 11/23/17 Phenazopyridine Hcl (PHENAZOPYRIDINE HCL) 200 Mg Tablet, 200 MG PO TID PRN for BURNING WITH URINATION, TAB 10/05/17 Metoprolol Tartrate (Metoprolol Tartrate) 100 Mg Tablet, 100 MG PO BID, #60 0 Refills 06/26/10 Discontinued Reported Medications Ibuprofen (IBUPROFEN) 800 Mg Tablet, 1 TAB PO TID PRN for PAIN, #50 TAB 11/26/17 Ciprofloxacin Hcl (CIPROFLOXACIN HCL) 500 Mg Tablet, 500 MG PO Q12H for 10 Days, #20 TAB 11/26/17 Chlorpheniramine/Dextromethorp (Eql Cough-Cold Relief Hbp Tab) 4 Mg-30 Mg Tablet, 1 TAB PO PRN PRN for CONGESTION 09/29/17 Docusate Sodium (COLACE) 100 Mg Capsule, 100 MG PO PRN, #30 CAPSULE 08/27/17 Discontinued Scripts Hydrocodone Bit/Acetaminophen (HYDROCODON-ACETAMINOPHEN 5-325) 1 Each Tablet, 1 EACH PO Q4-6H PRN for PAIN, #12 TAB Prov:TRAERHIANNA COSTUMED CHARACTER 12/04/17 Diet: Regular Activity: As Tolerated Copies to: GENA WADE MD; EBER GONCALVES DO ; Venous Thromboembolism Antithrombotics Is Pt On Any Antithrombotics?: Yes [id number] Certification Face to Face Home Health Certification Institutional Provider conducted the [id number] encounter. Electronic Undersigning Physician Certifies Home Health. I certify that the patient has been under my care and that I had a [id number] encounter that meets the physician [id number] encounter requirements with this patient. This patient is home-bound due to safety issues and continues to require assistance with ADL's. I certify that based on my findings, that Nursing, Aides and the following Home Health services are medically necessary: Medical Necessity: Nursing, Rehab Date Face to Face Conducted: Dec 09, 2017 Problem Qualifiers (1) UTI (urinary tract infection): Urinary tract infection type: acute cystitis Hematuria presence: without antonio turia Qualified Codes: N30.00 - Acute cystitis without hematuria MANAV ARVIZU DO Dec 09, 2017 10:41
[2017-12-09] MEDS ORDERED: INFLUENZA VIRUS VAC 0.5ML SYR IM ONLY ONE (13:46)
[2017-12-09] MEDS ORDERED: valACYclovir HCL 500 MG TAB PO SCH (21:00)
== END 2017-12-09 13:58 | disposition home health service (06) | DRG 690 ==
LOC: ER 16:44 → MED 19:06
PROVIDERS: ADMIT Internal Medicine; ATTEND Internal Medicine
DX: N30.00 Acute cystitis without hematuria (principal); N17.9 Acute kidney failure, unspecified; Z68.43 Body mass index [BMI] 50.0-59.9, adult; E86.0 Dehydration; B37.2 Candidiasis of skin and nail; B02.9 Zoster without complications; E66.01 Morbid (severe) obesity due to excess calories; I12.9 Hypertensive chronic kidney disease with stage 1 through stage 4 chronic kidney disease, or unspecified chronic kidney disease; N18.3 Chronic kidney disease, stage 3 (moderate); R53.1 Weakness; F41.9 Anxiety disorder, unspecified; Z23 Encounter for immunization; Z87.442 Personal history of urinary calculi; Z90.49 Acquired absence of other specified parts of digestive tract; Z91.040 Latex allergy status; Z88.2 Allergy status to sulfonamides; Z99.81 Dependence on supplemental oxygen; Z95.5 Presence of coronary angioplasty implant and graft
CPT/HCPCS: 36415; 70450; 71046; 81001; 82040; 82247; 82310; 82374; 82435; 82565; 82947; 84075; 84132; 84155; 84295; 84450; 84460; 84520; 85025; 87088; 90674; 96365; 97162; 97165; 99283; 99284; A4338; J0696; J1650; J2550; J7030; J7050

== ENCOUNTER → 2017-12-16 | Outpatient (REF) | payer MEDICARE ==
[2017-12-06 10:15] VITALS: BMI 50.3
[~2017-12-16] MED LIST changes: +NYST15CR32 TP
== END ==
LOC: ZZSENDIN 12:48
DX: N30.01 Acute cystitis with hematuria (principal); B96.89 Other specified bacterial agents as the cause of diseases classified elsewhere
CPT/HCPCS: 81001; 87088

== ENCOUNTER 2018-01-12 14:42 | Inpatient (IN) | payer MEDICARE ==
[~2018-01-12] VITALS: Ht 162.6 cm; Wt 136.3 kg
[2018-01-12] MEDS ORDERED: LR(*) 1000 ML BAG 2,400 ML IV ONE (14:45)
[2018-01-12] MEDS ORDERED: EMS NS 0.9%(*) 1000 ML BAG 1,000 ML IV ONE (14:55)
[2018-01-12] MEDS ORDERED: MORPHINE 2 MG/ML SYR IVP ONE (15:10)
[2018-01-12 15:13] LABS: PLATELET COUNT, AUTOMATED 222 K/uL (150-450)
[2018-01-12 15:16] LABS: INR 0.95
--- NOTE | 2018-01-12 15:37 | ER Report ---
History and Physical Time Seen By MD: 14:50 Hx. of Stated Complaint: left kidney pain, HPI/ROS CHIEF COMPLAINT: Kidney pain HISTORY OF PRESENT ILLNESS: 72-year-old female with history of multiple episodes of UTI, Pyelo, kidney stones, status post lithotripsy, presents with pain, chills that began this a.m. and continue, dysuria without hematuria. + hx cholecystectomy. Denies cp, sob, ap, cough, n/v/d/c. Denies le pain or swelling. Denies hernandez + fevers/chills REVIEW OF SYSTEMS: Constitutional: above Eyes: No discharge. ENT: No sore throat. Cardiovascular: No chest pain, no palpitations. Respiratory: No cough, no shortness of breath. Gastrointestinal: No abdominal pain, no vomiting. + flank pain Genitourinary: No hematuria. Musculoskeletal: + l flank pain Skin: No rashes. Neurological: No headache. + chills Remainder of the 14 system rev: Yes Allergies: Coded Allergies: latex (Verified Allergy, Severe, RASH, 01/12/18) PEELS SKIN OFF Sulfa (Sulfonamide Antibiotics) (Verified Allergy, Unknown, HIVES, 01/12/18) Home Meds Active Scripts NYSTATIN 402957 UNT/ML Topical Cream (NYSTATIN 001708 UNT/ML Topical Cream) 15 Gm Cream..g., 0 GM TP BID, #15 G Prov:MANAV ARVIZU DO 12/09/17 Promethazine Hcl (PROMETHAZINE HCL) 25 Mg Tablet, 25 MG PO Q8H PRN for NAUSEA/VOMITING, #20 TAB 0 Refills Prov:LOIS VILLANUEVA MD 09/11/17 Nifedipine (PROCARDIA XL) 30 Mg Tab.er.24, 30 MG PO QDAY, #30 TAB Prov:MANAV ARVIZU DO 07/26/17 Reported Medications Hydroxyzine Hcl (HYDROXYZINE HCL) 50 Mg Tablet, 50 MG PO TID PRN for ANXIETY 11/26/17 Metoprolol Tartrate (Metoprolol Tartrate) 100 Mg Tablet, 100 MG PO BID, #60 0 Refills 06/26/10 Discontinued Reported Medications Hydrocodone Bit/Acetaminophen (NORCO 7.5-325 TABLET) 1 Each Tablet, 1 EACH PO Q4-6H PRN for PAIN, #30 11/26/17 Famotidine (FAMOTIDINE) 20 Mg Tablet, 20 MG PO BID, #20 TAB 11/26/17 Solifenacin Succinate (VESICARE) 10 Mg Tablet, 10 MG PO QDAY 11/23/17 Phenazopyridine Hcl (PHENAZOPYRIDINE HCL) 200 Mg Tablet, 200 MG PO TID PRN for BURNING WITH URINATION, TAB 10/05/17 Discontinued Scripts Valacyclovir Hcl (VALTREX) 1,000 Mg Tablet, 1000 MG PO TID, #20 TAB Prov:RHIANNA LARKIN BEEHIVE KILN CHARCOAL BURNER 12/04/17 Reviewed Nurses Notes: Yes Old Medical Records Reviewed: Yes Hx Smoking: No Smoking Status: Never Smoker Hx Substance Use Disorder: No Hx Alcohol Use: No Constitutional Vital Sign - Last 24 Hours 01/12/18 01/12/18 01/12/18 01/12/18 14:55 15:06 15:12 15:30 Temp 100.9 99.8 Pulse 83 79 Resp 24 B/P (MAP) 187/116 183/88 (119) 181/85 (117) Pulse Ox 92 95 O2 Delivery Room Air 01/12/18 01/12/18 01/12/18 01/12/18 15:35 16:00 16:05 16:08 Pulse 76 85 B/P (MAP) 175/91 (119) Pulse Ox 90 86 O2 Delivery Room Air O2 Flow Rate 2.0 01/12/18 16:08 Pulse Ox 92 O2 Delivery Nasal Cannula O2 Flow Rate 3 Physical Exam General Appearance: The patient is alert, has no immediate need for airway protection and no signs of toxicity. Eyes: Pupils equal and round no pallor or injection. ENT, Mouth: Mucous membranes are moist. Respiratory: There are no retractions, lungs are clear to auscultation. Cardiovascular: Regular rate and rhythm. Gastrointestinal: Abdomen is soft and non tender, no masses, bowel sounds normal. Neurological: alert, oriented, moves all ext Skin: cool and dry. Musculoskeletal: Extremities are nontender, nonswollen and have full range of motion. Left cvat shaking chills DIFFERENTIAL DIAGNOSIS: After history and physical exam differential diagnosis was considered for sepsis, neurologic etiology, other emergent etiology Medical Decision Making Data Points Result Diagram: 01/12/18 1500 01/12/18 1500 Laboratory Hematology Test 01/12/18 15:00 01/12/18 15:02 01/12/18 15:33 Red Blood Count 4.72 M/uL (4.17-5.56) Mean Corpuscular Volume 91.6 fL (80.0-96.0) Mean Corpuscular Hemoglobin 30.6 pg (26.0-33.0) Mean Corpuscular Hemoglobin Concent 33.4 g/dL (32.0-36.0) Red Cell Distribution Width 15.0 % (11.5-14.5) Mean Platelet Volume 9.0 fL (7.2-11.1) Neutrophils (%) (Auto) 80.8 % (39.4-72.5) Lymphocytes (%) (Auto) 10.6 % (17.6-49.6) Monocytes (%) (Auto) 5.9 % (4.1-12.4) Eosinophils (%) (Auto) 2.0 % (0.4-6.7) Basophils (%) (Auto) 0.7 % (0.3-1.4) Nucleated RBC Relative Count (auto) 0.1 /100WBC Neutrophils # (Auto) 8.0 K/uL (2.0-7.4) Lymphocytes # (Auto) 1.1 K/uL (1.3-3.6) Monocytes # (Auto) 0.6 K/uL (0.3-1.0) Eosinophils # (Auto) 0.2 K/uL (0.0-0.5) Basophils # (Auto) 0.1 K/uL (0.0-0.1) Nucleated RBC Absolute Count (auto) 0.01 K/uL Peripheral Blood Smear No Y/N Prothrombin Time 12.7 seconds (12.0-14.4) Prothromb Time International Ratio 0.95 Activated Partial Thromboplast Time 29 seconds (23-35) Sodium Level 141 mmol/L (137-145) Potassium Level 4.0 mmol/L (3.5-5.0) Chloride Level 111 mmol/L (98-107) Carbon Dioxide Level 19 mmol/L (22-31) Blood Urea Nitrogen 21 mg/dl (7-18) Creatinine 1.40 mg/dl (0.52-1.04) Glomerular Filtration Rate Calc 37.1 Random Glucose 119 mg/dl (75-110) Calcium Level 10.1 mg/dl (8.4-10.2) Total Bilirubin 0.5 mg/dl (0.2-1.3) Aspartate Amino Transf (AST/SGOT) 34 U/L (0-35) Alanine Aminotransferase (ALT/SGPT) 30 U/L (0-56) Alkaline Phosphatase 103 U/L (0-126) Troponin I < 0.012 ng/ml Total Protein 8.4 g/dl (6.3-8.2) Albumin 4.1 g/dl (3.5-5.0) Lactate 1.6 mmol/L (0.7-2.1) Urine Color Yellow Urine Clarity Cloudy Urine pH 5.0 pH (4.8-9.5) Urine Specific Boyden 1.014 Urine Protein Negative mg/dL (NEGATIVE) Urine Glucose (UA) Negative mg/dL (NEGATIVE) Urine Ketones Negative mg/dL (NEGATIVE) Urine Blood Small (NEGATIVE) Urine Nitrite Positive (NEGATIVE) Urine Bilirubin Negative (NEGATIVE) Urine Urobilinogen Negative mg/dL (0.2-1.9) Urine Leukocyte Esterase Large (NEGATIVE) Urine RBC 9 /HPF (0-2/HPF) Urine WBC 357 /HPF (0-5/HPF) Urine WBC Clumps Many /HPF Urine Squamous Epithelial Cells Many /LPF (NONE-FEW) Urine Bacteria Moderate /HPF (NONE-FEW) Urine Mucus None /HPF (NONE-FEW) Chemistry Test 01/12/18 15:00 01/12/18 15:02 01/12/18 15:33 White Blood Count 9.9 k/uL (4.5-11.0) Red Blood Count 4.72 M/uL (4.17-5.56) Hemoglobin 14.5 g/dL (12.0-16.0) Hematocrit 43.2 % (34.0-47.0) Mean Corpuscular Volume 91.6 fL (80.0-96.0) Mean Corpuscular Hemoglobin 30.6 pg (26.0-33.0) Mean Corpuscular Hemoglobin Concent 33.4 g/dL (32.0-36.0) Red Cell Distribution Width 15.0 % (11.5-14.5) Platelet Count 222 K/uL (150-450) Mean Platelet Volume 9.0 fL (7.2-11.1) Neutrophils (%) (Auto) 80.8 % (39.4-72.5) Lymphocytes (%) (Auto) 10.6 % (17.6-49.6) Monocytes (%) (Auto) 5.9 % (4.1-12.4) Eosinophils (%) (Auto) 2.0 % (0.4-6.7) Basophils (%) (Auto) 0.7 % (0.3-1.4) Nucleated RBC Relative Count (auto) 0.1 /100WBC Neutrophils # (Auto) 8.0 K/uL (2.0-7.4) Lymphocytes # (Auto) 1.1 K/uL (1.3-3.6) Monocytes # (Auto) 0.6 K/uL (0.3-1.0) Eosinophils # (Auto) 0.2 K/uL (0.0-0.5) Basophils # (Auto) 0.1 K/uL (0.0-0.1) Nucleated RBC Absolute Count (auto) 0.01 K/uL Peripheral Blood Smear No Y/N Prothrombin Time 12.7 seconds (12.0-14.4) Prothromb Time International Ratio 0.95 Activated Partial Thromboplast Time 29 seconds (23-35) Glomerular Filtration Rate Calc 37.1 Calcium Level 10.1 mg/dl (8.4-10.2) Total Bilirubin 0.5 mg/dl (0.2-1.3) Aspartate Amino Transf (AST/SGOT) 34 U/L (0-35) Alanine Aminotransferase (ALT/SGPT) 30 U/L (0-56) Alkaline Phosphatase 103 U/L (0-126) Troponin I < 0.012 ng/ml Total Protein 8.4 g/dl (6.3-8.2) Albumin 4.1 g/dl (3.5-5.0) Lactate 1.6 mmol/L (0.7-2.1) Urine Color Yellow Urine Clarity Cloudy Urine pH 5.0 pH (4.8-9.5) Urine Specific Boyden 1.014 Urine Protein Negative mg/dL (NEGATIVE) Urine Glucose (UA) Negative mg/dL (NEGATIVE) Urine Ketones Negative mg/dL (NEGATIVE) Urine Blood Small (NEGATIVE) Urine Nitrite Positive (NEGATIVE) Urine Bilirubin Negative (NEGATIVE) Urine Urobilinogen Negative mg/dL (0.2-1.9) Urine Leukocyte Esterase Large (NEGATIVE) Urine RBC 9 /HPF (0-2/HPF) Urine WBC 357 /HPF (0-5/HPF) Urine WBC Clumps Many /HPF Urine Squamous Epithelial Cells Many /LPF (NONE-FEW) Urine Bacteria Moderate /HPF (NONE-FEW) Urine Mucus None /HPF (NONE-FEW) Coagulation Test 01/12/18 15:00 Prothrombin Time 12.7 seconds Prothromb Time International Ratio 0.95 Activated Partial Thromboplast Time 29 seconds Urinalysis Test 01/12/18 15:33 Urine Color Yellow Urine Clarity Cloudy Urine pH 5.0 pH (4.8-9.5) Urine Specific Boyden 1.014 Urine Protein Negative mg/dL (NEGATIVE) Urine Glucose (UA) Negative mg/dL (NEGATIVE) Urine Ketones Negative mg/dL (NEGATIVE) Urine Blood Small (NEGATIVE) Urine Nitrite Positive (NEGATIVE) Urine Bilirubin Negative (NEGATIVE) Urine Urobilinogen Negative mg/dL (0.2-1.9) Urine Leukocyte Esterase Large (NEGATIVE) Urine RBC 9 /HPF (0-2/HPF) Urine WBC 357 /HPF (0-5/HPF) Urine WBC Clumps Many /HPF Urine Squamous Epithelial Cells Many /LPF (NONE-FEW) Urine Bacteria Moderate /HPF (NONE-FEW) Urine Mucus None /HPF (NONE-FEW) ED Course/Re-evaluation ED Course Patient presents with chills and left flank pain that she feels is like prior UTIs. She is afebrile with normal vitals, and labs are unremarkable including normal leukocytes and normal lactate. Her UA is consistent with UTI. Upon review of multiple prior most event essentially pansensitive with the exception of the most recent UA. Therefore, I discussed with patient the potential for admission and observation with IV antibiotics versus discharge. She would prefer to discharge, so we will initiate first dose IV antibiotics and monitor her for a couple hours. At that time I will reassess and if she feels improved it is reasonable given the entirety of her presentation and findings to try an outpatient plan. Depart Departure Latest Vital Signs Vital Signs Date Time Temp Pulse Resp B/P (MAP) Pulse Ox O2 Delivery O2 Flow Rate FiO2 01/12/18 16:08 92 Nasal Cannula 3 01/12/18 16:05 85 01/12/18 16:00 175/91 (119) 01/12/18 15:30 99.8 01/12/18 14:55 24 Condition: Stable Disposition: HOME OR SELF-CARE Referrals: EBER GONCALVES DO (PCP) ERIK PILLAI MD Jan 12, 2018 15:36
[2018-01-12] MEDS ORDERED: MORPHINE 4 MG/ML SDV IVP ONE (15:50)
[2018-01-12] MEDS ORDERED: cefTRIAXone 1 GM VIAL IVP ONE ×2 (16:25→18:30)
[2018-01-12] MEDS ORDERED: VANCOMYCIN(*) 1 GM VIAL 2.5 GM in NS(*) 0.9% 250 ML BAG 250 ML IVPB ONE (17:25)
[2018-01-12] MEDS ORDERED: VANCOMYCIN(*) 1 GM VIAL 2.5 GM in NS(*) 0.9% 500 ML BAG 500 ML IVPB ONE (17:35)
[2018-01-12] MEDS ORDERED: hydrOXYzine 25 MG TAB PO ONE (17:40)
[2018-01-12] MEDS ORDERED: ACETAMINOPHEN(*)1000 MG/100 ML 100 ML IVPB PRN (17:40)
[2018-01-12] MEDS ORDERED: NS(*) 0.9% 1000 ML BAG 1,000 ML IV PRN (17:47)
[2018-01-12] MEDS ORDERED: PROMETHAZINE 25 MG/ML 1 ML AMP IVP PRN (17:50)
[2018-01-12 18:26] VITALS: BP 155/99
--- NOTE | 2018-01-12 18:26 | History & Physical ---
History of Present Illness Chief Complaint 72yo female with h/o urethral stones and UTI's who came to the ER for left sided flank pain and rigors. She reports that she was in her normal state of health until this morning when the symptoms developed. She denies n/v/ constipation/SOB/CP. She was in the hospital from 12/05-12/09 for a UTI and skin breakdown in her perineum secondary to incontinence. She reports that she doesn't chronically have a Stout catheter. In the ER, she received LR 2400 cc for concern of sepsis, morphine, Rocephin and Vancomycin. History Problems: (1) Obesity, morbid, BMI 50 or higher Status: Chronic (2) ANXIETY DISORDER, UNSPECIFIED Status: Chronic (3) Candidiasis of perineum Status: Acute (4) History of kidney stones Status: Chronic (5) HTN (hypertension) Status: Chronic (6) CKD (chronic kidney disease) stage 3, GFR 30-59 ml/min Status: Chronic Home Meds Active Scripts NYSTATIN [id number] UNT/ML Topical Cream (NYSTATIN 518346 UNT/ML Topical Cream) 15 Gm Cream..g., 0 GM TP BID, #15 G Prov:MANAV ARVIZU DO 12/09/17 Promethazine Hcl (PROMETHAZINE HCL) 25 Mg Tablet, 25 MG PO Q8H PRN for NAUSEA/VOMITING, #20 TAB 0 Refills Prov:LOIS VILLANUEVA MD 09/11/17 Nifedipine (PROCARDIA XL) 30 Mg Tab.er.24, 30 MG PO QDAY, #30 TAB Prov:AMNAV ARVIZU DO 07/26/17 Reported Medications Hydroxyzine Hcl (HYDROXYZINE HCL) 50 Mg Tablet, 50 MG PO TID PRN for ANXIETY 11/26/17 Metoprolol Tartrate (Metoprolol Tartrate) 100 Mg Tablet, 100 MG PO BID, #60 0 Refills 06/26/10 Discontinued Reported Medications Hydrocodone Bit/Acetaminophen (NORCO 7.5-325 TABLET) 1 Each Tablet, 1 EACH PO Q4-6H PRN for PAIN, #30 11/26/17 Famotidine (FAMOTIDINE) 20 Mg Tablet, 20 MG PO BID, #20 TAB 11/26/17 Solifenacin Succinate (VESICARE) 10 Mg Tablet, 10 MG PO QDAY 11/23/17 Phenazopyridine Hcl (PHENAZOPYRIDINE HCL) 200 Mg Tablet, 200 MG PO TID PRN for BURNING WITH URINATION, TAB 10/05/17 Discontinued Scripts Valacyclovir Hcl (VALTREX) 1,000 Mg Tablet, 1000 MG PO TID, #20 TAB Prov:RHIANNA LARKIN CURTAIN [employer]CH[employer]SEMBLER 12/04/17 Allergies: Coded Allergies: latex (Verified Allergy, Severe, RASH, 01/12/18) PEELS SKIN OFF Sulfa (Sulfonamide Antibiotics) (Verified Allergy, Unknown, HIVES, 01/12/18) Hx Smoking: No Smoking Status: Never Smoker Caffeine Intake: Coffee Caffeine/Cups Per Day: 2 CUPS A DAY Hx Alcohol Use: No Hx Substance Use Disorder: No Social Drug Use: Never Review of Systems All Systems Reviewed/Normal: Yes, Except as Noted Exam Vital Signs Vital Signs Date Time Temp Pulse Resp B/P (MAP) Pulse Ox O2 Delivery O2 Flow Rate FiO2 01/12/18 17:45 88 93 Nasal Cannula 3 01/12/18 17:30 170/91 (117) 01/12/18 15:30 99.8 01/12/18 14:55 24 General Appearance: Alert, Awake, Other (She is noticably having chills with shaking, pale. Breathing comfortably.) Neuro: No Gross deficits Eyes: PERRLA ENT: Moist Mucous Membranes Cardiovascular: Regular Rate and Rhythm Respiratory: Clear to Auscultation GI: Abd Soft and Non-Tender : Other (Mild left flank pain with palpation) Extremities: Edema (Trace pitting in shins bilaterally) Integumentary: No Jaundice, No Cyanosis Medical Decision Making Data Points Result Diagram: 01/12/18 1500 01/12/18 1500 Item Value Date Time Neutrophils (%) (Auto) 80.8 % H 01/12/18 1500 Lymphocytes (%) (Auto) 10.6 % L 01/12/18 1500 Monocytes (%) (Auto) 5.9 % 01/12/18 1500 Eosinophils (%) (Auto) 2.0 % 01/12/18 1500 Basophils (%) (Auto) 0.7 % 01/12/18 1500 Nucleated RBC Relative Count (auto) 0.1 /100WBC 01/12/18 1500 Prothromb Time International Ratio 0.95 01/12/18 1500 Carbon Dioxide Level 19 mmol/L L 01/12/18 1500 Blood Urea Nitrogen 21 mg/dl H 01/12/18 1500 Creatinine 1.40 mg/dl H 01/12/18 1500 Creatinine 1.40 mg/dl H 12/08/17 0538 Blood Urea Nitrogen 18 mg/dl 12/08/17 0538 Carbon Dioxide Level 22 mmol/L 12/08/17 0538 Creatinine 1.30 mg/dl H 12/07/17 0541 Lactate 1.6 mmol/L 01/12/18 1502 Troponin I < 0.012 ng/ml 01/12/18 1500 Total Bilirubin 0.5 mg/dl 01/12/18 1500 Aspartate Amino Transf (AST/SGOT) 34 U/L 01/12/18 1500 Alanine Aminotransferase (ALT/SGPT) 30 U/L 01/12/18 1500 Alkaline Phosphatase 103 U/L 01/12/18 1500 Urine RBC 9 /HPF 01/12/18 1533 Urine WBC 357 /HPF 01/12/18 1533 Urine Leukocyte Esterase Large H 01/12/18 1533 Urine Nitrite Positive H 01/12/18 1533 Urine WBC Clumps Many /HPF 01/12/18 1533 Urine Squamous Epithelial Cells Many /LPF H 01/12/18 1533 Urine Bacteria Moderate /HPF H 01/12/18 1533 Assessment and Plan Problems: (1) Urinary tract infection Status: Acute Assessment & Plan: She presented with rigors, left flank pain, fever to100.9 and pyuria. She has a h/o UTI but also pyelonephritis complicated by obstructing stones. Lactate, BP, and P are normal. She received a dose of vancomycin in the ER, so will check a random level tomorrow morning. She will get Rocephin 2g IV [id number]. A renal US has been ordered to look for hydronephrosis that would be concerning for an obstructing stone. Her abdominal exam is benign. (2) History of kidney stones Status: Chronic Assessment & Plan: Followed by Dr. Wade. See above. (3) CKD (chronic kidney disease) stage 3, GFR 30-59 ml/min Status: Chronic Assessment & Plan: Baseline creatinine is 1.2-1.5. Will follow. (4) Edema Status: Acute Assessment & Plan: She reports that she slept in chair for a while, but just got a new bed about a week ago. The edema is significantly improving, but still present. Will follow. (5) ANXIETY DISORDER, UNSPECIFIED Status: Chronic Assessment & Plan: Continue chronic prn hydroxyzine. (6) HTN (hypertension) Status: Chronic Assessment & Plan: Continue chronic nifedipine and metoprolol with parameters. (7) Obesity, morbid, BMI 50 or higher Status: Chronic Copies to: GENA WADE MD; EBER GONCALVES DO ; Venous Thromboembolism Antithrombotics Is Pt On Any Antithrombotics?: No Exam Sepsis Risk: No Definite Risk ISSAC VEGA MD Jan 12, 2018 18:26
[2018-01-12] MEDS ORDERED: GABA-549 PO (19:40)
[2018-01-12] MEDS: GABAPENTIN 300 MG CAP PO SCH (21:24)
[2018-01-12] MEDS: METOPROLOL TART 50 MG TAB PO SCH (21:24)
--- NOTE | 2018-01-12 21:24 | RADIOLOGY IMAGING REPORT ---
FACILITY: [facility] PATIENT NAME: Sarah Tomlinson : 1945 MR: [id number] V: [id number] EXAM DATE: ORDERING PHYSICIAN: ISSAC VEGA TECHNOLOGIST: Location: [facility] Patient: Sarah Tomlinson : 1945 Visit/Account:[id number] Date of Sevice: 01/12/2018 Renal ultrasound Indication: Fever. Left flank pain. History of cyst recent stent removal on 12/09/2017. Comparison: None available Findings: Right kidney measures 11.0 x 5.4 x 5.5 cm in cc, AP, and transverse dimensions respectively. Left kidney measures 12.3 x 6.2 x 6.0 cm in cc, AP, and transverse dimensions respectively. The kidneys are normal in echogenicity bilaterally. The kidneys have lobulated contours. This could r eflect persistent lobulation. On the right, no evidence of hydronephrosis. On the left, prominent calyces are seen in the upper pole. No gross hydronephrosis. Bilateral ureteral jets are seen. The bladder is partially distended with urine with a Stout catheter in place. IMPRESSION: 1. Prominent calyces within the left kidney upper pole without evidence of hydronephrosis throughout the kidney. 2. Lobulated renal contours bilaterally may reflect chronic lobulation. 3. Bilateral ureteral jets identified. 4. Partially decompressed bladder with a Stout catheter. Report Dictated By: Jacek Ortiz at 01/12/2018 9:14 PM Report E-Signed By: Jacek Ortiz at 01/12/2018 9:20 PM WSN:[id number]
[2018-01-12 21:41] VITALS: BP 160/86
[2018-01-12 23:11] VITALS: BP 161/93
[2018-01-12] MEDS ORDERED: ACETAMINOPHEN 325 MG TAB PO PRN (23:50)
[2018-01-13] MEDS: hydrOXYzine 25 MG TAB PO PRN (00:04)
[2018-01-13] MEDS: APAP/HYDROCODONE 325/5 TAB PO PRN ×4 (00:04→19:50)
[2018-01-13 03:07] VITALS: BP 164/94
[2018-01-13 05:48] LABS: PLATELET COUNT, AUTOMATED 165 K/uL (150-450)
[2018-01-13 07:45] VITALS: BP 171/93
[2018-01-13] MEDS ORDERED: NS(*) 0.9% 1000 ML BAG 1,000 ML IV PRN (08:55)
[2018-01-13] MEDS: GABAPENTIN 300 MG CAP PO SCH ×3 (09:19→19:50)
[2018-01-13] MEDS: ENOXAPARIN 30 MG/0.3 ML SYR SC SCH (09:19)
[2018-01-13] MEDS: NIFEdipine XL 30 MG TABCR PO SCH (09:20)
[2018-01-13] MEDS: METOPROLOL TART 50 MG TAB PO SCH ×2 (09:21→19:50)
[2018-01-13] MEDS ORDERED: VANCOMYCIN(*) 1 GM VIAL 2 GM in NS(*) 0.9% 250 ML BAG 250 ML IVPB SCH (10:00)
[2018-01-13] MEDS: NYSTATIN 100,000 U/GM PWD 15GM TP SCH ×2 (10:38→19:52)
[2018-01-13 10:45] VITALS: BP 160/85
[2018-01-13 13:58] VITALS: Ht 162.6 cm; Wt 136.3 kg
--- NOTE | 2018-01-13 14:02 | RADIOLOGY IMAGING REPORT ---
FACILITY: [facility] PATIENT NAME: Sarah Tomlinson : 1945 MR: [id number] V: [id number] EXAM DATE: [id number] ORDERING PHYSICIAN: ILYA TYLER TECHNOLOGIST: Location: [facility] Patient: Sarah Tomlinson : 1945 Visit/Account:[id number] Date of Sevice: 01/13/2018 Exam type: LUMBAR SPINE 4 VIEWS History: back/R leg pain Comparison: None. Findings: There are five nonrib-bearing lumbar-type vertebral bodies present. There is mild disc space narrowi ng at L3-4 with degenerative endplate changes and facet joint hypertrophy. There are moderate to sev ere degenerative endplate changes with disc space narrowing and facet joint hypertrophy at L4-5 and L 5-S1. No evidence of acute fractures or subluxations. Appropriate projects over the lower pelvis in the midline. There are surgical clips in right upper quadrant of abdomen. IMPRESSION: 1. Spondylotic changes of the lumbar spine as described. If patient's symptoms persist MR is recomm ended Report Dictated By: Avis Boothe MD at 01/13/2018 1:57 PM Report E-Signed By: Avis Boothe MD at 01/13/2018 1:58 PM WSN:[email or web address]
[2018-01-13 14:39] VITALS: BP 160/78
--- NOTE | 2018-01-13 14:44 | Hospitalist Progress Note ---
Subjective Progress Notes Subjective Overall, she reports feeling improved, but still has significant right lower extremity pain. Physical Exam Vital Signs Date Time Temp Pulse Resp B/P (MAP) Pulse Ox O2 Delivery O2 Flow Rate FiO2 01/13/18 10:45 98.8 61 20 160/85 (110) 92 Nasal Cannula 1.0 Intake and Output 01/13/18 06:58 Intake Total 2900 ml Output Total 1550 ml Balance 1350 ml Intake Oral 300 ml IV Total 2600 ml Output Urine Total 1550 ml General Appearance: Alert, Awake Cardiovascular: Regular Rate and Rhythm Respiratory: Clear to Auscultation GI: Soft and Non-Tender (obese) Musculoskeletal: Other (Pain with ROM/straight leg raise on right. No knee effusion/callor/erythema noted.) Extremities: Warm, Perfused, Other (No erythema noted.) Integumentary: Other (candidal changes in all skin folds) Psych: Alert & Oriented X3 Result Diagram: 01/13/1851601/13/18516 Assessment and Plan Problems: (1) Urinary tract infection Status: Acute Assessment & Plan: Improved clinically. She presented with rigors, left flank pain, fever to 100.9F and pyuria. She has a history of UTI with pyelonephritis complicated by obstructing stones. Will continue IV vancomycin and Rocephin. A renal US did not show any hydronephrosis/stones/obstruction. Await urine culture. (2) History of kidney stones Status: Chronic Assessment & Plan: Followed by Dr. Noguera. See above. (3) CKD (chronic kidney disease) stage 3, GFR 30-59 ml/min Status: Chronic Assessment & Plan: Stable. Baseline creatinine is 1.2-1.5 (1.4 today). Will follow. (4) Edema Status: Acute Assessment & Plan: She reports that she slept in chair for a while, but just got a new bed about a week ago. The edema is significantly improved. Will follow. (5) ANXIETY DISORDER, UNSPECIFIED Status: Chronic Assessment & Plan: Continue chronic prn hydroxyzine. (6) HTN (hypertension) Status: Chronic Assessment & Plan: Continue chronic nifedipine and metoprolol with parameters. (7) Obesity, morbid, BMI 50 or higher Status: Chronic (8) Candidiasis Status: Chronic Assessment & Plan: Will use some topical nystatin. Try to keep dry. (9) Lower extremity pain Status: Chronic Assessment & Plan: She has had problems with this for quite awhile. Will check L-spine films. Exam Sepsis Risk: No Definite Risk ILYA TYLER MD Jan 13, 2018 14:44
--- NOTE | 2018-01-13 14:45 | Antimicrobial Stewardship ---
Antimicrobial Stewardship Empiricly appropriate: Yes Significant PMH: Yes Support empiric regimen: Yes Comment Hx of Pyelonephritis with obstructing stones. Prior bacteria include: e. faecium, enterobacter cloacae, Proteus-->All sensitive to Ceftriaxone and Vancomycin added for enterococcal coverage Approriate Cultures done: Yes Gram stain show Microbs: Yes (01/12/18: Urine Cx- >100,000cfu GNR, Blood Cx x 2 pending (NGTD)) Renal/Hepatic dosing: Yes (CKD, CrCl ~50 mL/min- Vancomycin dosed Q24h) Serum concentration checked: Yes (01/13/18- Vancomycin Random = 17.97 (after one dose 12h later)) Determine cumulative duration: UTI/Pyelonephritis- day 2 of antibiotics Determine standard duration: UTI/Pyelonephritis - 10-14 days Comment 72 yo F who presented to the ED with fever, rigors, L flank pain, and pyuria. H/O pyelonephritis with obstructing kidney stones, and CKD. Hx of ureteral stents removed on 12/09/17. 01/12/18: Blood Cx x 2 - NGTD 01/12/18: Urine Cx - >100,000cfu - GNR Hx--> has grown e. faecium, p. mirabilis, enterobacter cloacae -- all previously sensitive to ceftriaxone 01/12/18: Ceftriaxone 2g IV Q24H 01/12/18: Vancomycin 2.5g IV x 1, then 2g IV Q24H CrCl ~50mL/min 01/13/18: 0500 Random Vanco level = 17.27, redosed at 10 am to maintain goal trough of 15-20 Plan: Continue Ceftriaxone 2g and Vancomycin 2g IV q24h until cultures come back. Will follow and adjust as required. Marta Morris, PharmD, OP MARTA MORRIS Jan 13, 2018 14:02
[2018-01-13] MEDS: cefTRIAXone 2 GM VIAL IVP SCH (15:32)
[2018-01-13] MEDS: LIDOCAINE 5% PATCH TP SCH ×2 (15:59)
[2018-01-13 19:47] VITALS: BP 171/85
[2018-01-13] MEDS: PATCH REMOVAL 1 EA TP SCH (19:57)
[2018-01-13] MEDS ORDERED: PATCH REMOVAL 1 EA TOP SCH (21:00)
[2018-01-13 23:21] VITALS: BP 150/79
[2018-01-14] MEDS: APAP/HYDROCODONE 325/5 TAB PO PRN ×2 (01:00→06:29)
[2018-01-14 03:31] VITALS: BP 160/82
[2018-01-14 05:34] LABS: PLATELET COUNT, AUTOMATED 147 K/uL (150-450)
[2018-01-14 07:49] VITALS: BP 140/82
[2018-01-14] MEDS ORDERED: GABAPENTIN 300 MG CAP PO SCH (09:00)
[2018-01-14] MEDS ORDERED: INFLUENZA VIRUS VAC 0.5ML SYR IM ONLY ONE (09:00)
[2018-01-14] MEDS: LIDOCAINE 5% PATCH TP SCH ×2 (09:37→09:38)
[2018-01-14] MEDS: NYSTATIN 100,000 U/GM PWD 15GM TP SCH ×2 (09:38→20:40)
[2018-01-14] MEDS: oxyCODONE HCL 5 MG CAP PO PRN ×4 (09:38→22:27)
[2018-01-14] MEDS: NIFEdipine XL 30 MG TABCR PO SCH (09:39)
[2018-01-14] MEDS: METOPROLOL TART 50 MG TAB PO SCH ×2 (09:39→20:39)
[2018-01-14] MEDS: GABAPENTIN(*) 300 MG CAP 300 MG, GABAPENTIN(*) 100 MG CAP 100 MG PO SCH ×3 (09:39→20:40)
[2018-01-14] MEDS: ENOXAPARIN 30 MG/0.3 ML SYR SC SCH (09:40)
--- NOTE | 2018-01-14 11:17 | Hospitalist Progress Note ---
Subjective Progress Notes Subjective Left flank pain has resolved. Lidoderm patch has helped with the back pain, but still present. Physical Exam Vital Signs Date Time Temp Pulse Resp B/P (MAP) Pulse Ox O2 Delivery O2 Flow Rate FiO2 01/14/18 08:03 92 Room Air 01/14/18 07:49 98.2 65 16 140/82 (101) 2.0 Intake and Output 01/14/18 06:59 Intake Total 1840 ml Output Total 2250 ml Balance -410 ml Intake Oral 580 ml IV Total 1260 ml Output Urine Total 2250 ml # Bowel Movements 1 General Appearance: Alert, Awake, No Acute Distress GI: Soft and Non-Tender : No CVA Tenderness Extremities: Edema (trace to 1+ pitting on shins) Result Diagram: 01/14/18 0505 01/14/18 0505 Assessment and Plan Problems: (1) Urinary tract infection Status: Acute Assessment & Plan: She presented with rigors, left flank pain, fever to 100.9F and pyuria. Improved clinically (afebrile and no more left flank pain). She has a history of UTI with pyelonephritis complicated by obstructing stones. Will continue Rocephin and stop Vancomycin because urine is growing a GNR. A renal US did not show any hydronephrosis/stones/obstruction. Await urine culture. (2) Lower extremity pain Status: Chronic Assessment & Plan: She has had problems with this for quite awhile. L-spine films c/w lumbar spondylotic changes. Will get an MRI and potentially discuss with Dr. Gee based on the results. (3) History of kidney stones Status: Chronic Assessment & Plan: Followed by Dr. Noguera. See above. (4) CKD (chronic kidney disease) stage 3, GFR 30-59 ml/min Status: Chronic Assessment & Plan: Stable. Baseline creatinine is 1.2-1.5 (1.2 today). Will follow. (5) Edema Status: Acute Assessment & Plan: She reports that she slept in chair for a while, but just got a new bed about a week ago. The edema is significantly improved. Will fol low. (6) ANXIETY DISORDER, UNSPECIFIED Status: Chronic Assessment & Plan: Continue chronic prn hydroxyzine. (7) HTN (hypertension) Status: Chronic Assessment & Plan: Continue chronic nifedipine and metoprolol with parameters. (8) Candidiasis Status: Chronic Assessment & Plan: Will use some topical nystatin. Try to keep dry. (9) Obesity, morbid, BMI 50 or higher Status: Chronic Exam Sepsis Risk: No Definite Risk ISSAC VEGA MD Jan 14, 2018 11:17
[2018-01-14 13:56] VITALS: BP 139/72
[2018-01-14] MEDS: hydrOXYzine 25 MG TAB PO PRN (14:22)
--- NOTE | 2018-01-14 16:02 | RADIOLOGY IMAGING REPORT ---
FACILITY: [facility] PATIENT NAME: Sarah Tomlinson : 1945 MR: [id number] V: [id number] EXAM DATE: [id number] ORDERING PHYSICIAN: ISSAC VEGA TECHNOLOGIST: Location: [facility] Patient: Sarah Tomlinson : 1945 Visit/Account:[id number] Date of Sevice: 01/14/2018 EXAMINATION: MRI lumbar spine without IV contrast HISTORY: Low back pain with radiation to the right leg. COMPARISON: Lumbar spine radiographs from 01/13/2018. TECHNIQUE: Multi-planar, multi-sequence lumbar spine MRI was performed without intravenous contrast administration. FINDINGS: The exam is mildly limited by patient motion artifact. Alignment: Normal. Vertebral marrow signal: Mild fatty degenerative endplate changes in the lower lumbar spine. Distal thoracic cord: Negative. Conus: negative, terminates at the mid L1 level. Cauda equina: Negative. Paravertebral soft tissues: Negative. Visualized abdominal and pelvic structures: 1.4 cm simple left adnexal cyst partly visualized. Disc spaces: Lower thoracic spine: Small central disc protrusion at T9-10, and minimal disc bulge at T11-12. No s ignificant central canal or foraminal stenosis. L1-2: Normal. L2-3: Mild concentric disc bulge with bilateral facet hypertrophy and ligamentum flavum laxity. Tasha lar fissure on the left. Mild bilateral foraminal stenosis without significant central canal stenosi s. L3-4: Mild disc space narrowing and desiccation with a mild concentric disc bulge, bilateral facet hy pertrophy and ligamentum flavum laxity. There is a superimposed far right lateral disc protrusion. Mild right lateral recess stenosis and mild bilateral foraminal stenosis, right greater than left. N o significant central canal stenosis. L4-5: Severe disc space narrowing with posterior bony spurring and a mild disc bulge eccentric to the right. There is a small superimposed right paracentral disc extrusion with annular fissure and infe rior extension. Bilateral facet hypertrophy and ligamentum flavum laxity. Hpmh-yc-bexrjxma central canal stenosis, mild right lateral recess stenosis, mild left and [id number]-[id number] right foraminal st enosis. L5-S1: Severe disc space narrowing with posterior bony spurring and a broad-based disc protrusion ecc entric to the right. Bilateral facet hypertrophy. There is moderate right lateral recess stenosis w ith mild mass effect on the transiting right S1 nerve root. Moderate bilateral foraminal stenosis. No significant central canal stenosis. IMPRESSION: 1. Multilevel degenerative disc disease and facet arthropathy is worst at L5-S1 where there is moder ate right lateral recess stenosis with mild mass effect on the transiting right S1 nerve root. Pleas e see the findings for description of individual level disease. 2. Annular fissures at L2-3 and L4-5. Report Dictated By: Alexia Reed MD at 01/14/2018 3:52 PM Report E-Signed By: Alexia Reed MD at 01/14/2018 3:58 PM [id number]
[2018-01-14] MEDS: cefTRIAXone 2 GM VIAL IVP SCH (16:28)
[2018-01-14] MEDS ORDERED: MAGNESIUM HYDROXIDE* 30ML UDCP PO PRN (19:00)
[2018-01-14] MEDS ORDERED: BISACODYL 10 MG SUPP PR PRN (19:00)
[2018-01-14 20:00] VITALS: BP 142/73
[2018-01-14] MEDS: DOCUSATE SODIUM 100 MG CAP PO SCH (20:39)
[2018-01-14] MEDS: PATCH REMOVAL 1 EA TP SCH (20:40)
[2018-01-15 00:05] VITALS: BP 159/88
[2018-01-15] MEDS: oxyCODONE HCL 5 MG CAP PO PRN ×5 (03:38→21:17)
[2018-01-15 03:47] VITALS: BP 145/75
[2018-01-15 07:45] VITALS: BP 139/88
[2018-01-15] MEDS: POLYETHYLENE GLYCOL 17 GM PKT PO SCH (09:25)
[2018-01-15] MEDS: NIFEdipine XL 30 MG TABCR PO SCH (09:25)
[2018-01-15] MEDS: GABAPENTIN(*) 300 MG CAP 300 MG, GABAPENTIN(*) 100 MG CAP 100 MG PO SCH ×3 (09:25→21:17)
[2018-01-15] MEDS: METOPROLOL TART 50 MG TAB PO SCH ×2 (09:25→21:18)
[2018-01-15] MEDS: CEPHALEXIN MONO 500 MG CAP PO SCH ×4 (09:25→21:20)
[2018-01-15] MEDS: DOCUSATE SODIUM 100 MG CAP PO SCH ×2 (09:25→21:17)
[2018-01-15] MEDS: NYSTATIN 100,000 U/GM PWD 15GM TP SCH ×2 (09:25→21:18)
[2018-01-15] MEDS: LIDOCAINE 5% PATCH TP SCH ×2 (09:26)
--- NOTE | 2018-01-15 09:27 | Hospitalist Progress Note ---
Subjective Progress Notes Subjective This patient was admitted for urinary infection. She had no acute issues overnight. Patient Complains of: Cardiovascular: No: Chest Pain Respiratory: No: Shortness of Breath Physical Exam Vital Signs Date Time Temp Pulse Resp B/P (MAP) Pulse Ox O2 Delivery O2 Flow Rate FiO2 01/15/18 07:48 91 Nasal Cannula 1.0 01/15/18 07:45 98.4 62 16 139/88 (105) Intake and Output 01/15/18 06:59 Intake Total 700 ml Output Total 2650 ml Balance -1950 ml Intake Oral 700 ml Output Urine Total 2650 ml Cardiovascular: Regular Rate and Rhythm Respiratory: Clear to Auscultation Result Diagram: 01/14/18 0505 01/14/18 0505 Item Value Date Time Urine Culture - Final Complete 01/12/18 1533 Straight Cath Urine Escherichia Coli Assessment and Plan Problems: (1) Urinary tract infection Status: Acute Assessment & Plan: She presented with rigors, left flank pain, and fever to 100.9F. Her urine culture is positive for E. coli. She had been on treatment with ceftriaxone, but was converted to oral Keflex. Pharmacy has recommended of total of 14 days for treatment. (2) Lower extremity pain Status: Chronic Assessment & Plan: She has had problems with this for quite awhile. An MRI has has impingement. This was reviewed with Dr. Gee. She will follow up with him as an outpatient. (3) History of kidney stones Status: Chronic Assessment & Plan: She does have a history of obstructing stones. Her ultrasound on this admission did not show any hydronephrosis. She is followed by Dr. Noguera. (4) CKD (chronic kidney disease) stage 3, GFR 30-59 ml/min Status: Chronic (5) Edema Status: Acute Assessment & Plan: Resolved. (6) ANXIETY DISORDER, UNSPECIFIED Status: Chronic Assessment & Plan: Continue chronic prn hydroxyzine. (7) HTN (hypertension) Status: Chronic Assessment & Plan: She is on chronic treatment with nifedipine and metoprolol. (8) Candidiasis Status: Chronic Assessment & Plan: Will use some topical nystatin. Try to keep dry. (9) Obesity, morbid, BMI 50 or higher Status: Chronic Exam Sepsis Risk: No Definite Risk MANAV ARVIZU DO Jan 15, 2018 09:27
[2018-01-15] MEDS: ENOXAPARIN 30 MG/0.3 ML SYR SC SCH (09:32)
[2018-01-15 14:30] VITALS: BP 134/70
[2018-01-15 19:15] VITALS: BP 123/75
[2018-01-15] MEDS: PATCH REMOVAL 1 EA TP SCH (21:00)
[2018-01-16] MEDS: oxyCODONE HCL 5 MG CAP PO PRN ×5 (01:59→20:55)
[2018-01-16 02:20] VITALS: BP 138/86
[2018-01-16 08:41] VITALS: BP 143/89
[2018-01-16] MEDS: NIFEdipine XL 30 MG TABCR PO SCH (08:44)
[2018-01-16] MEDS: DOCUSATE SODIUM 100 MG CAP PO SCH ×2 (08:44→20:55)
[2018-01-16] MEDS: METOPROLOL TART 50 MG TAB PO SCH ×2 (08:45→20:55)
[2018-01-16] MEDS: GABAPENTIN(*) 300 MG CAP 300 MG, GABAPENTIN(*) 100 MG CAP 100 MG PO SCH ×3 (08:45→20:54)
[2018-01-16] MEDS: POLYETHYLENE GLYCOL 17 GM PKT PO SCH (08:45)
[2018-01-16] MEDS: CEPHALEXIN MONO 500 MG CAP PO SCH ×4 (08:45→20:55)
[2018-01-16] MEDS: LIDOCAINE 5% PATCH TP SCH ×2 (08:46→08:47)
[2018-01-16] MEDS: ENOXAPARIN 30 MG/0.3 ML SYR SC SCH (08:46)
[2018-01-16] MEDS: NYSTATIN 100,000 U/GM PWD 15GM TP SCH ×2 (08:47→20:56)
--- NOTE | 2018-01-16 10:09 | Hospitalist Progress Note ---
Subjective Progress Notes Subjective She reports continued discomfort in right lower extremity. Physical Exam Vital Signs Date Time Temp Pulse Resp B/P (MAP) Pulse Ox O2 Delivery O2 Flow Rate FiO2 01/16/18 08:41 98.3 70 18 143/89 (107) 91 Nasal Cannula 1.0 Intake and Output 01/16/18 06:59 Intake Total 1700 ml Output Total 675 ml Balance 1025 ml Intake Oral 1700 ml Output Urine Total 675 ml # Voids 4 General Appearance: Alert, Awake Cardiovascular: Regular Rate and Rhythm Respiratory: Clear to Auscultation GI: Soft and Non-Tender (Obese) Extremities: Warm, Perfused Psych: Alert & Oriented X3 Result Diagram: 01/14/18 0505 01/14/18 0505 Assessment and Plan Problems: (1) Urinary tract infection Status: Acute Assessment & Plan: She presented with rigors, left flank pain, and fever to 100.9F. Her urine culture is positive for E. coli. She had been on treatment with ceftriaxone, but was converted to oral Keflex. Pharmacy has recommended of total of 14 days for treatment. (2) Lower extremity pain Status: Chronic Assessment & Plan: She has had problems with this for quite awhile. An MRI shows impingement on right at L5-S1. This was reviewed with Dr. Gee - he has recommended conservative management at this time follow up with him as an outpatient. They will consider possible injections as well. (3) History of kidney stones Status: Chronic Assessment & Plan: She does have a history of obstructing stones. Her ultrasound on this admission did not show any hydronephrosis. She is followed by Dr. Noguera. (4) CKD (chronic kidney disease) stage 3, GFR 30-59 ml/min Status: Chronic Assessment & Plan: Creatinine 1.2 on 01/14/18, which is slightly better than her baseline. (5) Edema Status: Acute Assessment & Plan: Improved/Resolved. (6) ANXIETY DISORDER, UNSPECIFIED Status: Chronic Assessment & Plan: Continue chronic prn hydroxyzine. (7) HTN (hypertension) Status: Chronic Assessment & Plan: She is on chronic treatment with nifedipine and metoprolol. (8) Candidiasis Status: Chronic Assessment & Plan: She is on topical nystatin. Try to keep dry. (9) Obesity, morbid, BMI 50 or higher Status: Chronic Exam Sepsis Risk: No Definite Risk ILYA TYLER MD Jan 16, 2018 10:09
[2018-01-16] MEDS: ACETAMINOPHEN 500 MG TAB PO PRN ×2 (10:22→20:55)
[2018-01-16 12:57] VITALS: BP 140/86
[2018-01-16 15:18] VITALS: BP 118/71
[2018-01-16] MEDS: MENTHOL/METHYL SALI CREAM 57 GM 57 GM TUBE TP PRN ×2 (15:36→20:56)
[2018-01-16 20:10] VITALS: BP 155/80
[2018-01-16] MEDS: PATCH REMOVAL 1 EA TP SCH (20:56)
[2018-01-17] MEDS: oxyCODONE HCL 5 MG CAP PO PRN ×5 (02:06→21:21)
[2018-01-17 02:20] VITALS: BP 133/76
[2018-01-17] MEDS: ACETAMINOPHEN 500 MG TAB PO PRN ×2 (06:09→14:24)
[2018-01-17 06:17] LABS: PLATELET COUNT, AUTOMATED 190 K/uL (150-450)
[2018-01-17 08:39] VITALS: BP 140/81
[2018-01-17] MEDS: ENOXAPARIN 30 MG/0.3 ML SYR SC SCH (08:44)
[2018-01-17] MEDS: NIFEdipine XL 30 MG TABCR PO SCH (08:44)
[2018-01-17] MEDS: METOPROLOL TART 50 MG TAB PO SCH ×2 (08:44→21:21)
[2018-01-17] MEDS: GABAPENTIN(*) 300 MG CAP 300 MG, GABAPENTIN(*) 100 MG CAP 100 MG PO SCH ×3 (08:45→21:21)
[2018-01-17] MEDS: NYSTATIN 100,000 U/GM PWD 15GM TP SCH ×2 (08:45→20:09)
[2018-01-17] MEDS: CEPHALEXIN MONO 500 MG CAP PO SCH ×4 (08:45→21:21)
[2018-01-17] MEDS: DOCUSATE SODIUM 100 MG CAP PO SCH ×2 (08:45→21:20)
[2018-01-17] MEDS: LIDOCAINE 5% PATCH TP SCH ×2 (08:46)
[2018-01-17] MEDS: POLYETHYLENE GLYCOL 17 GM PKT PO SCH (08:46)
--- NOTE | 2018-01-17 10:55 | Hospitalist Progress Note ---
Subjective Progress Notes Subjective She reports that her pain in back and right leg are much improved. however, she still isn't able to transfer or ambulate Physical Exam Vital Signs Date Time Temp Pulse Resp B/P (MAP) Pulse Ox O2 Delivery O2 Flow Rate FiO2 01/17/18 08:50 98.1 01/17/18 08:39 60 140/81 (100) 90 Nasal Cannula 1.0 01/17/18 02:20 16 Intake and Output 01/17/18 06:59 Intake Total 1720 ml Balance 1720 ml Intake Oral 1720 ml # Voids 6 # Bowel Movements 1 General Appearance: Alert, Awake, No Acute Distress Result Diagram: 01/17/1852201/17/18522 Assessment and Plan Problems: (1) Urinary tract infection Status: Acute Assessment & Plan: She presented with rigors, left flank pain, and fever to 100.9F. Her urine culture is positive for E. coli. She had been on treatment with ceftriaxone, but was converted to oral Keflex. Pharmacy has recommended of total of 14 days for treatment. (2) Lower extremity pain Status: Chronic Assessment & Plan: She has had problems with this for quite awhile. An MRI shows impingement on right at L5-S1. This was reviewed with Dr. Gee - she doesn't want any surgical intervention at this time, so he has recommended follow up with Dr. Collins as an outpatient for possible injections. (3) History of kidney stones Status: Chronic Assessment & Plan: She does have a history of obstructing stones. Her ultrasound on this admission did not show any hydronephrosis. She is followed by Dr. Noguera. She is to followup with him as an outpatient to discuss chronic suppressive antibiotics. (4) CKD (chronic kidney disease) stage 3, GFR 30-59 ml/min Status: Chronic Assessment & Plan: Stable. Baseline creatinine is 1.2-1.5 (1.3 today). Will follow. (5) Edema Status: Acute Assessment & Plan: Improved/Resolved. (6) ANXIETY DISORDER, UNSPECIFIED Status: Chronic Assessment & Plan: Continue chronic prn hydroxyzine. (7) HTN (hypertension) Status: Chronic Assessment & Plan: She is on chronic treatment with nifedipine and metoprolol. (8) Candidiasis Status: Chronic Assessment & Plan: She is on topical nystatin. Try to keep dry. (9) Obesity, morbid, BMI 50 or higher Status: Chronic Exam Sepsis Risk: No Definite Risk ISSAC VEGA MD Jan 17, 2018 10:55
[2018-01-17 11:53] VITALS: BP 137/97
[2018-01-17] MEDS: MENTHOL/METHYL SALI CREAM 57 GM 57 GM TUBE TP PRN ×2 (14:28→21:26)
[2018-01-17 15:58] VITALS: BP 140/78
[2018-01-17 18:49] VITALS: BP 147/79
[2018-01-17] MEDS: PATCH REMOVAL 1 EA TP SCH (20:03)
[2018-01-17 23:24] VITALS: BP 163/94
[2018-01-18 03:15] VITALS: BP 156/89
[2018-01-18] MEDS: oxyCODONE HCL 5 MG CAP PO PRN ×4 (04:43→17:22)
[2018-01-18 07:48] VITALS: BP 166/82
[2018-01-18] MEDS: MENTHOL/METHYL SALI CREAM 57 GM 57 GM TUBE TP PRN (08:00)
[2018-01-18] MEDS: ACETAMINOPHEN 500 MG TAB PO PRN (08:07)
[2018-01-18] MEDS: DOCUSATE SODIUM 100 MG CAP PO SCH (09:07)
[2018-01-18] MEDS: CEPHALEXIN MONO 500 MG CAP PO SCH ×3 (09:08→17:22)
[2018-01-18] MEDS: GABAPENTIN(*) 300 MG CAP 300 MG, GABAPENTIN(*) 100 MG CAP 100 MG PO SCH ×2 (09:08→13:17)
[2018-01-18] MEDS: METOPROLOL TART 50 MG TAB PO SCH (09:08)
[2018-01-18] MEDS: NIFEdipine XL 30 MG TABCR PO SCH (09:08)
[2018-01-18] MEDS: POLYETHYLENE GLYCOL 17 GM PKT PO SCH (09:09)
[2018-01-18] MEDS: NYSTATIN 100,000 U/GM PWD 15GM TP SCH (09:09)
[2018-01-18] MEDS: LIDOCAINE 5% PATCH TP SCH ×2 (09:10→09:11)
[2018-01-18] MEDS: ENOXAPARIN 30 MG/0.3 ML SYR SC SCH (09:10)
--- NOTE | 2018-01-18 11:03 | Hospitalist Progress Note ---
Subjective Progress Notes Subjective She has no complaints this morning. She had no acute events overnight. Patient Complains of: Cardiovascular: No: Chest Pain Respiratory: No: Shortness of Breath Physical Exam Vital Signs Date Time Temp Pulse Resp B/P (MAP) Pulse Ox O2 Delivery O2 Flow Rate FiO2 01/18/18 07:48 98.3 56 16 166/82 (110) 90 Nasal Cannula 1.5 Intake and Output 01/18/18 00:00 Intake Total 870 ml Balance 870 ml Intake Oral 870 ml # Voids 4 General Appearance: Alert, Awake, No Acute Distress, Afebrile Neuro: No Gross deficits Cardiovascular: Regular Rate and Rhythm Respiratory: No Respiratory Distress, Clear to Auscultation Psych: Alert & Oriented X3, Appropriate Mood & Affect Result Diagram: 01/17/1852201/17/18522 Assessment and Plan Problems: (1) Urinary tract infection Status: Acute Assessment & Plan: She presented with rigors, left flank pain, and fever to 100.9F. Her urine culture is positive for E. coli. She had been on treatment with ceftriaxone, but was converted to oral Keflex. Pharmacy has recommended of total of 14 days for treatment. She is currently awaiting acceptance for SNF for continued rehab. (2) Lower extremity pain Status: Chronic Assessment & Plan: She has had problems with this for quite awhile. An MRI shows impingement on right at L5-S1. This was reviewed with Dr. Gee - she doesn't want any surgical intervention at this time, so he has recommended follow up with Dr. Collins as an outpatient for possible injections. (3) History of kidney stones Status: Chronic Assessment & Plan: She does have a history of obstructing stones. Her ultrasound on this admission did not show any hydronephrosis. She is followed by Dr. Noguera. She is to followup with him as an outpatient to discuss chronic suppressive antibiotics. (4) CKD (chronic kidney disease) stage 3, GFR 30-59 ml/min Status: Chronic Assessment & Plan: Stable. Baseline creatinine is 1.2-1.5 (1.3 today). Will follow. (5) Edema Status: Acute Assessment & Plan: Improved/Resolved. (6) ANXIETY DISORDER, UNSPECIFIED Status: Chronic Assessment & Plan: Continue chronic prn hydroxyzine. (7) HTN (hypertension) Status: Chronic Assessment & Plan: She is on chronic treatment with nifedipine and metoprolol. (8) Candidiasis Status: Chronic Assessment & Plan: She is on topical nystatin. Try to keep dry. (9) Obesity, morbid, BMI 50 or higher Status: Chronic Exam Sepsis Risk: No Definite Risk AFRICA DOWD Jan 18, 2018 11:03
[2018-01-18 13:57] VITALS: BP 149/81
[2018-01-18] MEDS ORDERED: CEPH500C24 PO (14:55)
[2018-01-18] MEDS ORDERED: GABA-551 PO (14:55)
[2018-01-18] MEDS ORDERED: OXYC5TAB38 PO (14:55)
[2018-01-18] MEDS ORDERED: BENGAY TP (14:55)
[2018-01-18] MEDS ORDERED: LIDO700A19 TP (14:55)
--- NOTE | 2018-01-18 15:12 | Hospitalist Depart ---
Discharge Summary Reason for Hosp/Final Diag: (1) Urinary tract infection Status: Acute Hospital Course & Plan: She presented with rigors, left flank pain, and fever to 100.9F. Her urine culture is positive for E. coli. She had been on treatment with ceftriaxone, but was converted to oral Keflex. Pharmacy has recommended of total of 14 days for treatment. She will continue another 7 days of Keflex. She would like to see Dr. Harvey about recurring UTI's. She will make an appointment as an outpatient. (2) Weakness generalized Status: Acute Hospital Course & Plan: She presented with weakness and has been working with therapy throughout admission. PT and OT have recommended further rehab prior to discharge home, however the patient is adamant that she will be discharged home. She has been accepted to both the [facility] and [facility], and has refused both these options. She would like to go home with home health. Patient reminded she has nurses helping her get in and out of bed and to the bathroom, and patient responds with "God has healed me". She states she will have her granddaughter stay with her after discharge. I have discussed with patient at length, that I do not agree with her going home until she recei ves further rehab since she lives alone. At this time, patient refuses any further care. She will be discharged home. (3) Lower extremity pain Status: Chronic Hospital Course & Plan: She has had problems with this for quite awhile. An MRI shows impingement on right at L5-S1. This was reviewed with Dr. Gee - she doesn't want any surgical intervention at this time, so he has recommended follow up with Dr. Reddy as an outpatient for possible injections. (4) History of kidney stones Status: Chronic Hospital Course & Plan: She does have a history of obstructing stones. Her ultrasound on this admission did not show any hydronephrosis. She prefers to follow up with Dr. Harvey. She is to followup with him as an outpatient to discuss chronic suppressive antibiotics. (5) CKD (chronic kidney disease) stage 3, GFR 30-59 ml/min Status: Chronic Hospital Course & Plan: Stable. Baseline creatinine is 1.2-1.5 (1.3 today). (6) Edema Status: Acute Hospital Course & Plan: Improved/Resolved. (7) ANXIETY DISORDER, UNSPECIFIED Status: Chronic Hospital Course & Plan: Continue chronic prn hydroxyzine. (8) HTN (hypertension) Status: Chronic Hospital Course & Plan: She is on chronic treatment with nifedipine and metoprolol. (9) Candidiasis Status: Chronic Hospital Course & Plan: She is on topical nystatin. Try to keep dry. (10) Obesity, morbid, BMI 50 or higher Status: Chronic Departure Latest Vital Signs Vital Signs 01/18/18 01/18/18 07:48 13:57 Temp 98.2 Pulse 61 Resp 16 B/P (MAP) 149/81 (103) Pulse Ox 91 O2 Delivery Room Air O2 Flow Rate 1.5 Weight (Pounds): 300 Weight (Ounces): 7.0 Result Diagram: 01/17/1852201/17/18522 Condition: Improved Discharge: Home, Home Health PT/OT Follow Up For: PT For Strengthening, OT For ADL's, PT Evaluation and Treat, OT Evaluation and Treat Home Health RN Follow Up For: Nursing Assessment Home Health COMPLIANCE NURSE Follow Up For: ADL Assistance Discharge Instructions Home Meds Active Scripts Gabapentin (GABAPENTIN) 400 Mg Capsule, 400 MG PO TID, #90 CAPSULE Prov:AFRICA DOWD [facility] 01/18/18 Menthol/Methyl Salicylate (BENGAY GREASELESS CREAM) 57 Gm Oint, 0 GM TP 3-4XD PRN for pain, #1 TUBE Prov:DOWDAFRICA Aureliano [facility] 01/18/18 Oxycodone Hcl (OXYCODONE HCL) 5 Mg Tablet, 5 MG PO Q4H PRN for PAIN, #42 TAB Prov:NOEMÍAFRICA Aureliano [facility] 01/18/18 Lidocaine (Lidocaine) 5 % Adh..patch, 1 EACH TP QDAY for 30 Days, #60 PATCH apply one patch to low back, one patch to thigh Prov:AFRICA DOWD [facility] 01/18/18 Cephalexin Monohydrate (CEPHALEXIN) 500 Mg Cap, 500 MG PO QID, #28 CAP Prov:DOWDJESSICAAFRICA Aureliano [facility] 01/18/18 NYSTATIN 290144 UNT/ML Topical Cream (NYSTATIN 851241 UNT/ML Topical Cream) 15 Gm Cream..g., 0 GM TP BID, #15 G Prov:MANAV ARVIZU DO 12/09/17 Promethazine Hcl (PROMETHAZINE HCL) 25 Mg Tablet, 25 MG PO Q8H PRN for NAUSEA/VOMITING, #20 TAB 0 Refills Prov:LOIS VILLANUEVA MD 09/11/17 Nifedipine (PROCARDIA XL) 30 Mg Tab.er.24, 30 MG PO QDAY, #30 TAB Prov:MANAV ARVIZU DO 07/26/17 Reported Medications Hydroxyzine Hcl (HYDROXYZINE HCL) 50 Mg Tablet, 50 MG PO TID PRN for ANXIETY 11/26/17 Metoprolol Tartrate (Metoprolol Tartrate) 100 Mg Tablet, 100 MG PO BID, #60 0 Refills 06/26/10 Discontinued Reported Medications Gabapentin (GABAPENTIN) 300 Mg Capsule, 300 MG PO TID, CAPSULE 01/12/18 Hydrocodone Bit/Acetaminophen (NORCO 7.5-325 TABLET) 1 Each Tablet, 1 EACH PO Q4-6H PRN for PAIN, #30 11/26/17 Famotidine (FAMOTIDINE) 20 Mg Tablet, 20 MG PO BID, #20 TAB 11/26/17 Solifenacin Succinate (VESICARE) 10 Mg Tablet, 10 MG PO QDAY 11/23/17 Phenazopyridine Hcl (PHENAZOPYRIDINE HCL) 200 Mg Tablet, 200 MG PO TID PRN for BURNING WITH URINATION, TAB 10/05/17 Discontinued Scripts Valacyclovir Hcl (VALTREX) 1,000 Mg Tablet, 1000 MG PO TID, #20 TAB Prov:TRAERHIANNA HIDES [facility] 12/04/17 Diet: Regular Activity: As Tolerated, With Walker Special Instructions: Follow up with Dr. Reddy for back. Follow up with Dr. Harvey regarding UTI's. Copies to: EDIN REDDY MD; EBER GONCALVES DO; MERLIN HARVEY MD ; Venous Thromboembolism Antithrombotics Is Pt On Any Antithrombotics?: No AFRICA DOWD [employer] Jan 18, 2018 15:12
[2018-01-18 17:18] VITALS: BP 155/103
== END 2018-01-18 17:50 | disposition home health service (06) | DRG 690 ==
LOC: ER 15:37 → MED 17:49
PROVIDERS: ADMIT Internal Medicine; ATTEND Internal Medicine
DX: N39.0 Urinary tract infection, site not specified (principal); Z68.43 Body mass index [BMI] 50.0-59.9, adult; I12.9 Hypertensive chronic kidney disease with stage 1 through stage 4 chronic kidney disease, or unspecified chronic kidney disease; N18.3 Chronic kidney disease, stage 3 (moderate); E66.01 Morbid (severe) obesity due to excess calories; B37.2 Candidiasis of skin and nail; R53.1 Weakness; B96.20 Unspecified Escherichia coli [E. coli] as the cause of diseases classified elsewhere; G89.29 Other chronic pain; F41.9 Anxiety disorder, unspecified; Z87.442 Personal history of urinary calculi; Z88.2 Allergy status to sulfonamides; Z91.040 Latex allergy status
CPT/HCPCS: 36415; 72120; 72148; 76705; 80202; 81001; 82040; 82247; 82310; 82374; 82435; 82565; 82947; 83605; 84075; 84132; 84155; 84295; 84450; 84460; 84484; 84520; 85025; 85610; 85730; 87040; 87077; 87088; 87186; 96361; 96374; 96375; 96376; 97162; 97166; 99285; C1758; J0131; J0696; J1650; J2270; J3370; J7030; J7040; J7050; J7120